=== PATIENT | female | born 1960 | race Caucasian/White ===

== ENCOUNTER → 2018-08-11 15:30 | Outpatient (CLI) | payer OTHER, SELFPAY ==
[2018-08-11 17:50] LABS: Absolute Lymphocyte Count 2.08 X10^3/ul (0.83-4.51); Absolute Neutrophil Count 3.6 X10^3/uL (2.0-7.7); Basophil# 0.01 X10^3/uL; Basophil% 0.2 % (0-1); Eosinophil# 0.12 X10^3/uL; Eosinophils% 1.9 % (0-5); Hematocrit 38.7 % (37-47); Hemoglobin 12.7 g/dl (12.0-15.0); Lymphocyte # 2.08 X10^3/ul (4.0); Mean Corp Hgb Conc 32.8 g/gl (32-36); Mean Corpuscular Hgb 28.9 pg (27.0-32.0); Mean Corpuscular Volume 88.2 fL (81-99); Mean Platelet Vol. 9.6 fl (6.2-12.0); Monocyte# 0.52 X10^3/uL; Monocyte% 8.3 % (0-10); Neutrophil # 3.57 X10^3/uL (2.7-7.7); Neutrophil % 56.6 % (47-70); Platelet Count 255 K/mm3 (150-450); RBC Distribution Width SD 41.3 fl (35.1-43.9); Red Blood Count 4.39 M/mm3 (4.2-5.4); White Blood Count 6.3 K/mm3 (4.4-11.0)
[2018-08-11 17:52] LABS: POSITIVE COUNT NO; POSITIVE DIFFERENTIAL NO; POSITIVE MORPHOLOGY NO
== END ==
PROVIDERS: Family Provider Family Medicine; PCP Family Medicine; Visit Provider Family Medicine
DX: R10.9 Unspecified abdominal pain (principal)
CPT/HCPCS: 36415; 85025

== ENCOUNTER → 2018-11-25 11:21 | Outpatient (CLI) | payer BC, SELFPAY ==
[2017-11-22 19:58] VITALS: BMI 22.0
--- NOTE | 2018-11-25 11:25 | RAD_ITS ---
STUDY: X-RAY - ABDOMEN/PELVIS REASON FOR EXAM: Female, 58 years old. Pain TECHNIQUE: 2 views COMPARISON: None. FINDINGS: Normal visualized lung bases. There is moderate stool in the colon. There is NO obstruction or fecal impaction. There is NO bowel wall thickening. There is no demonstrated free abdominal air. The visualized liver, spleen and kidneys are grossly normal in size and morphology. Normal soft tissue structures. Normal visualized osseous structures. RAD/Abdomen Single View IMPRESSION: There is NO acute intra-abdominal abnormality. NO stones are visible. Electronically Signed: Dany Meza MD at 6:41 EST , Service support ,
[2018-11-25 14:17] LABS: Anion Gap 6 (5-15); BUN 16 mg/dL (7-18); BUN/Creat Ratio 19.2 RATIO (10-20); Calcium,Total 8.8 mg/dL (8.5-10.1); Chloride 105 mmol/L (98-107); Creatinine, Serum 0.83 mg/dL (0.55-1.02); EST Glomerular Filtration Rate 75 mL/min (>60); Est Glom Filt Rate - Afr Amer 90 mL/min (>60); Glucose 96 mg/dL (74-106); Potassium 3.6 mmol/L (3.5-5.1); Sodium Level 141 mmol/L (136-145)
--- OUTSIDE RECORDS SUMMARY | 2019-01-30 02:54 | XMS RPT_ITS ---
:1960 Author Organization [facility] Care Team Providers Name Role Phone JPERICK CALLAHAN Norma Attending Unavailable SHANIKA MESSER Referring Unavailable Brent Campbell Attending Unavailable Brent Campbell Referring Unavailable Shanika Messer Primary Care Unavailable Shanika Messer Attending Unavailable Shanika Messer Primary Care Unavailable PROBLEMS PROBLEMS DATE TYPE CONDITION / CODE ATTENDING STATUS SOURCE 11/25/2018 Unknown N20.0 - CalcBrent Rand Active [facility] N20.0(ICD-10) Hospital Repository 11/25/2018 Unknown 592.0 - Calculus Brent Campbell Active [place] [facility] / Community 592.0(ICD-9) Hospital Repository PROCEDURES PROCEDURES No Procedure Records FoundRESULTS RESULTS BASIC METABOLIC Collected: 11/25/2018 Status: F Source: [place] PROFILE (BMP) 11:30 AM [facility] HOSPITAL REPOSITORY TYPE CODE TESTS RESULT OUT OF RANGE REFERENCE UNITS LAB L501.0100 74-106 mg/dL Normal GLU 96 Result Comment: Please note revised GLUCOSE reference range effective 2017. LAB L501.1000 7-18 mg/dL Normal BUN 16 LAB L501.1100 0.55-1.02 mg/dL Normal CREAT,SERUM 0.83 Result Comment: The validity of the calculated GFR AND GFRAA in patients over 70 years has not been determined. Clinical correlation is essential. LAB L501.1110 >60 mL/min Normal EST GFR 75 Result Comment: Non- GFR Calc LAB L501.1115 >60 mL/min Normal EST GFR - AA 90 Result Comment: GFR Calc LAB L501.1300 10-20 RATIO Normal BUN/CRE 19.2 LAB L501.2200 8.5-10.1 mg/dL CA Normal 8.8 LAB L501.5300 136-145 mmol/L NA Normal 141 LAB L501.5600 3.5-5.1 mmol/L K Normal 3.6 LAB L501.5900 98-107 mmol/L CL Normal 105 LAB L501.6100 21.0-32.0 mmol/L Normal CO2 30.0 LAB L501.6200 5-15 Normal GAP 6 Performed By: #### L500.2500 #### [facility] [address] [place], [address] ABDOMEN SINGLE VIEW Observed: 11/25/2018 Status: F Source: [place] 11:27 AM [facility] REPOSITORY [facility] Imaging Services [address] [place] [address] Abdomen Single View MR#: [id number] Acct: [id number] Name: MARITZA LANDON Rep #: [id number] : 1960 F 58 From: Dany Meza PCP: Shanika Messer MD Status: REG CLI Study: Abdomen Single View Date of Exam: 11/25/18 Exam# [id number] Ordering Dr: Brent Campbell MD STUDY: X-RAY - ABDOMEN/PELVIS REASON FOR EXAM: Female, 58 years old. Pain TECHNIQUE: 2 views COMPARISON: None. FINDINGS: Normal visualized lung bases. There is moderate stool in the colon. There is NO obstruction or fecal impaction. There is NO bowel wall thickening. There is no demonstrated free abdominal air. The visualized liver, spleen and kidneys are grossly normal in size and morphology. Normal soft tissue structures. Normal visualized osseous structures. RAD/Abdomen Single View IMPRESSION: There is NO acute intra-abdominal abnormality. NO stones are visible. 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 Observed: 11/25/2018 Status: F Source: [place] CULTURE, URINE 12:00 AM [facility] REPOSITORY Urine Culture ORGANISM 1: Klebsiella pneumoniae sp pneum [place] Count >100,000 Klebsiella pneumoniae sp pneum: REACTION Ampicillin $ >=32 R Ampicillin/Sulbactam $ 4 S Cefazolin $ <=4 S Cefepime $ <=0.12 S Ceftazidime *NF <=1 S Ceftriaxone $ <=0.25 S Ciprofloxacin $ <=0.25 S Ertapenim $$$ <=0.12 S ESBL NEG Gentamicin $ <=1 S Imipenem *NF <=0.25 S Levofloxacin $ <=0.12 S Nitrofurantoin $ 32 S Piperacillin/Tazobactam $$ 8 S Tobramycin $ <=1 S Trimethoprim/Sulfametho $ <=20 S (NF) indicates non-formulary drug at [facility]. Approval by Infectious Disease Specialist required before non-formulary drugs may be ordered and/or dispensed. Performed By: #### M100.0650 #### [facility] [place], [address] CBC W/DIFF, AUTOMATED Collected: 08/11/2018 Status: F Source: [place] 3:31 PM [facility] REPOSITORY TYPE CODE TESTS RESULT OUT OF RANGE REFERENCE UNITS LAB L100.1000 4.4-11.0 K/mm3 Normal WBC 6.3 LAB L100.1200 4.2-5.4 M/mm3 Normal RBC 4.39 LAB L100.1300 12.0-15.0 g/dl Normal HGB 12.7 LAB L100.1400 37-47 % Normal HCT 38.7 LAB L100.1500 81-99 fL Normal MCV 88.2 LAB L100.1600 27.0-32.0 pg Normal MCH 28.9 LAB L100.1700 32-36 g/gl Normal MCHC 32.8 LAB L100.1810 11.6-14.6 % Normal RDW CV 13.0 LAB L100.1820 35.1-43.9 fl Normal RDW SD 41.3 LAB L100.1900 150-450 K/mm3 Normal PLT 255 LAB L100.2000 6.2-12.0 fl Normal MPV 9.6 LAB L100.2100 47-70 % Normal NEUT% 56.6 LAB L100.2200 19-41 % Normal LY% 33.0 LAB L100.2300 0-10 % Normal MONO% 8.3 LAB L100.2400 0-5 % Normal EO% 1.9 LAB L100.2500 0-1 % Normal BASO% 0.2 LAB L100.2550 0.0-0.9 % Normal IM GRAN % 0.000 Result Comment: IG% - Immature Granulocytes (promyelocytes, myelocytes and metamyelocytes) > 1% indicates that a LEFT SHIFT is Present. LAB L100.2620 2.0-7.7 X10 3/uL Normal Absolute Neut 3.6 LAB L100.2720 0.83-4.51 X10 3/ul Normal Absolute Lymph 2.08 Performed By: #### L100.0100 #### [facility] [address] [place], [address] PROGRESS Observed: 01/05/2018 Status: COMPLETED Source: [place] 7:29 PM [facility] REPOSITORY HNO ID: [id number] Author: Erick Adrian Service: (none) Author Type: Physician Type: Progress Notes Filed: 01/05/2018 7:32 PM Note Text: FOLLOW UP VISIT - ENDOSCOPY NAME: Maritza Landaverde [facility] NO.: [id number] DATE OF SERVICE: 01/05/2018 : 1960 REFERRING PHYSICIAN: Shanika Messer MD Maritza is a patient I am following for anemia with a bleeding duodenal ulcer. Maritza was recently admitted to [facility] with severe iron deficiency anemia and suspected upper GI bleeding. I performed EGD on 11/13/17 with biopsy and control of bleeding ulcer with epinephrine. Pathology showed gastritis, negative for H. Pylori. The patient was discharged to home on 11/14/17 with stable hemoglobin, 8.5 at discharge, up from 5.9 on admisson. Follow-up hemoglobin on 11/17 was 11.0. The patient was advised to avoid NSAIDs and continue taking Protonix, which she has been doing as instructed, as well as to follow up with our office for repeat upper endoscopy in the next few weeks. The patient denies any abdominal pain, dark stools, nausea or vomiting. She states her appetite is good. She does note over the last few days however some new thoracic back discomfort. She presented to her PCP earlier this week , had labwork done including amylase, lipase, hepatic function panel, and CBC with diff. She had an x-ray of the abdomen and pelvis which showed a large amount of fecal material in the colon. Labs were significant for low hemoglobin and hematocrit of 9.8 and 30.7. I performed follow-up upper endoscopy on 2017. The patient was found to have no specific ulcerations, no signs of bleeding and mild duodenitis and gastritis but overall significantly improved. Pathology demonstrated: Mild chronic inactive gastritis, negative for H. pylori. The patient notes no complaints since the procedure. VITALS: There were no vitals taken for this visit. On examination, the abdomen is benign. Assessment IMPRESSION: Resolved duodenal ulcer, improving gastritis PLAN: If the patient notes any problems or changes in bowel function, the patient should contact me immediately. Otherwise I recommend follow up endoscopy as needed. I recommend she maintained on proton pump inhibitors for the next 3 months. She can then stop her medications. If the patient notes recurrence of symptoms, she restart her PPIs immediately. If the patient notes any issues of black tarry stools or signs of bleeding. She should follow-up with me immediately. Diagnoses: (K27.4) Bleeding ulcer (primary encounter diagnosis) Return to Clinic: The patient is instructed to follow- up with me as needed. Erick Adrian MD ALLERGIES ALLERGIES DATE TYPE / NAME / CODE REACTION SEVERITY SOURCE CODE 11/22/2017 Drug procaine Other Unknown [place] Allergy/41 HCl/[id number](RXN Community 2019381([facility]) Repository 11/22/2017 Drug Penicillins/W65368 Angioedema Unknown [place] Allergy/41 0476(RXNORM) Community 7380347([facility] OMED CT) Repository 11/22/2017 Drug aspirin/[id number] Vomiting Unknown [place] Allergy/41 (RXNORM) Community 2008410([facility] OMED CT) Repository 11/22/2017 Drug erythromycin Vomiting Unknown [place] Allergy/41 base/[id number](RX Community 6129083([facility] Hospital OMED CT) Repository 01/04/2014 Drug PENICILLINS RASH High [facility] Class/[address] [address](SNOM Repository ED CT) 01/04/2014 DRUG ASPIRIN Vomiting [place] [address] 2224217(SN Repository OMED CT) 01/04/2014 DRUG/99920 ERYTHROMYCIN Vomiting [facility] 1003(SNOME [address] D [address]) Repository 01/04/2014 DRUG PROCAINE OTHER: SEE C [address] [id number]( Repository OMED CT) ENCOUNTERS ENCOUNTERS ADMIT/DISCHARGE ACCOUNT ADMITTING ENCOUNTER LOCATION SOURCE NUMBER CLASS 11/25/2018 [id number] [facility] ing:MTRAD Repository 08/11/2018 [id number] [facility] ing:MFPLAB Repository 01/05/2018/01/09/20 [id number] Ambulatory [address] Repository PAYERS PAYERS ENCOUNTER GUARANTOR PAYER SUBSCRIBER SOURCE 11/25/2018 NICOLAS A Primary MARITZA A [place] [id number] Insurance:ANTHEMPolic BRUBAKERDOB: Community JOHANA y [place]: [id number] [id number] Repository [address]Krv: 330) Date:[phone] ([facility] [id number] [place] [address]II: 11/25/2018 Secondary NOT GIVENUNK [place] Insurance:SELF PAY [facility] Number: Effective Repository Date:2018-11-25 08/11/2018 NICOLAS A Primary MARITZA A [place] [id number] Insurance:ADMINISTRAT BRUBAKERDOB: [facility] JOHANA KING [facility] [id number]: Repository [address]Cgv: [phone] [phone] () Date: [facility] [address] [place], [place] [address]URSULA KEEN [address]KZ: 08/11/2018 Secondary NOT GIVENUNK [place] Insurance:SELF PAY [facility] Number: Effective Repository Date:2018-08-11
== END ==
PROVIDERS: Family Provider Family Medicine; PCP Family Medicine; Referring Provider Family Medicine; Visit Provider Family Medicine
DX: N20.0 Calculus of kidney (principal)
CPT/HCPCS: 36415; 74018; 80048; 87077; 87086; 87088; 87186

== ENCOUNTER → 2018-12-17 15:52 | Outpatient (CLI) | payer BC, SELFPAY ==
[2017-11-22 19:58] VITALS: BMI 22.0
== END ==
PROVIDERS: Family Provider Family Medicine; PCP Family Medicine; Referring Provider Family Medicine; Visit Provider Family Medicine
DX: N39.0 Urinary tract infection, site not specified (principal)
CPT/HCPCS: 87086

== ENCOUNTER → 2019-01-06 07:21 | Outpatient (CLI) | payer BC, SELFPAY ==
--- NOTE | 2019-01-06 07:31 | CT_ITS ---
STUDY: CT ABDOMEN AND PELVIS WITHOUT CONTRAST REASON FOR EXAM: Female, 58 years old. Right flank pain. RADIATION DOSAGE (If Supplied By Facility): CTDIvol = ( 8.25 ) mGy, DLP = ( 412.15 ) mGycm TECHNIQUE: Transaxial images were obtained from the dome of the diaphragm to the symphysis pubis without oral contrast, and without intravenous contrast. Sagittal and coronal images were reconstructed. Individualized dose optimization techniques were used for this CT. COMPARISON: None. FINDINGS: Patchy areas of scarring or subsegmental atelectasis in the left lung base. The visualized portions of the heart are within normal limits. Normal liver. Normal gallbladder and extrahepatic biliary system. Normal spleen. Normal pancreas. Normal bilateral adrenal glands. Normal right kidney. Normal left kidney. No definite renal or ureteral stones are seen. There is no hydronephrosis on either side. Evaluation of the GI tract is limited by absence of oral contrast. Cannot exclude stomach wall thickening. No dilated loops of bowel or evidence for obstruction. Cannot exclude segmental thickening of the lobato of the small or large bowel. Cannot exclude enteritis or colitis. Moderate to marked diffuse fecal retention. Appendix within normal limits. Normal abdominal aorta. Normal inferior vena cava. Normal retroperitoneum. Normal urinary bladder. Normal visualized uterus. Normal abdominal wall. There are diffuse degenerative changes of the visualized lumbar spine. Mild levoconvex scoliosis. CT/Abdomen/Pelvis without Cont IMPRESSION: No definite acute abnormality. [place]-xo-pfcxaq diffuse fecal retention. Electronically Signed: Kamran So MD at 16:52 EST , Service support ,
== END ==
PROVIDERS: Family Provider Family Medicine; PCP Family Medicine; Referring Provider Urology; Visit Provider Urology
DX: N20.0 Calculus of kidney (principal); R10.9 Unspecified abdominal pain
CPT/HCPCS: 74176

== ENCOUNTER → 2020-09-06 17:08 | Outpatient (CLI) | payer BC, SELFPAY ==
[2017-11-22 19:58] VITALS: BMI 22.0
== END ==
PROVIDERS: PCP Family Medicine; Referring Provider Family Medicine; Visit Provider Family Medicine
DX: B34.9 Viral infection, unspecified (principal)
CPT/HCPCS: 87635; U0003

== ENCOUNTER → 2021-05-16 10:39 | Outpatient (CLI) | payer OTHER, SELFPAY ==
--- NOTE | 2021-05-16 10:42 | CT_ITS ---
STUDY: CT ABDOMEN AND PELVIS WITHOUT CONTRAST REASON FOR EXAM: Female, 61 years old. Right flank pain. Hematuria. History of kidney stones. RADIATION DOSAGE (If Supplied By Facility): CTDIvol = ( 6.26 ) mGy, DLP = ( 303.50 ) mGycm TECHNIQUE: Transaxial images were obtained from the dome of the diaphragm to the symphysis pubis without oral contrast, and without intravenous contrast. Sagittal and coronal images were reconstructed. Individualized dose optimization techniques were used for this CT. COMPARISON: None. FINDINGS: Stable mild increased linear markings at the lung bases suggests above the linear scarring. The visualized portions of the heart are within normal limits. Normal liver. Normal gallbladder and extrahepatic biliary system. Normal spleen. Normal pancreas. Normal bilateral adrenal glands. Normal right kidney. Normal left kidney. There is a small hiatal hernia. Normal small intestine. Normal colon. The appendix is visualized and appears normal. There is scattered atherosclerotic calcification of the abdominal aorta, without a demonstrated aneurysm. Normal inferior vena cava. There is borderline retroperitoneal lymphadenopathy with enlarged nodes no greater than 10mm in the short axis diameter. Normal urinary bladder. There is a small umbilical hernia containing fat. There are mild degenerative changes of the visualized lumbar spine. Straightening of the normal lumbar lordosis. Levoscoliosis. CT/Abdomen/Pelvis without Cont IMPRESSION: Stable examination. Electronically Signed: Aurelio Mercedes MD at 11:04 EDT , Service support ,
== END ==
PROVIDERS: PCP Family Medicine; Referring Provider Family Medicine; Visit Provider Family Medicine
DX: R31.29 Other microscopic hematuria (principal); R10.9 Unspecified abdominal pain; Z87.442 Personal history of urinary calculi
CPT/HCPCS: 74176

== ENCOUNTER → 2021-07-25 14:58 | Outpatient (CLI) | payer OTHER, SELFPAY | PROVIDERS: PCP Family Medicine; Referring Provider Family Medicine; Visit Provider Family Medicine | DX: B34.9 Viral infection, unspecified (principal) | CPT/HCPCS: 87635; U0005; U0003 ==

== ENCOUNTER 2021-11-12 16:33 | Outpatient (CLI) | payer OTHER, SELFPAY ==
[2021-11-12 18:03] LABS: Absolute Lymphocyte Count 2.07 X10^3/uL (0.83-4.51); Absolute Neutrophil Count 4.1 X10^3/uL (2.0-7.7); Basophil# 0.03 X10^3/uL; Basophil% 0.4 % (0-1); Eosinophil# 0.13 X10^3/uL; Eosinophils% 1.9 % (0-5); Hematocrit 37.2 % (37-47); Hemoglobin 12.3 g/dL (12.0-15.0); Lymphocyte # 2.07 X10^3/ul (0.83-4.51); Lymphocyte % 29.8 % (19-41); Mean Corp Hgb Conc 33.1 g/dL (32-36); Mean Corpuscular Hgb 29.1 pg (27.0-32.0); Mean Corpuscular Volume 87.9 fL (81-99); Mean Platelet Vol. 9.3 fl (6.2-12.0); Monocyte# 0.55 X10^3/uL; Monocyte% 7.9 % (0-10); NRBC Flagged by Analyzer 0 % (0-5); Neutrophil # 4.14 X10^3/uL (2.7-7.7); Neutrophil % 59.7 % (47-70); Platelet Count 260 K/mm3 (150-450); RBC Distribution Width CV 12.8 % (11.6-14.6); Red Blood Count 4.23 M/mm3 (4.2-5.4); White Blood Count 6.9 K/mm3 (4.4-11.0)
[2021-11-12 18:49] LABS: ALB/GLOB Ratio 1.1 RATIO (0.9-2.4); AST(SGOT) 17 U/L (15-37); Alanine Aminotransfer ALT/SGPT 39 U/L (13-56); Albumin, Serum 3.9 g/dL (3.2-5.0); Alkaline Phosphatase 69 U/L (45-117); Anion Gap 8 (5-15); BUN 25 mg/dL (7-18); BUN/Creat Ratio 29.2 RATIO (10-20); Calcium,Total 9.2 mg/dL (8.5-10.1); Chloride 103 mmol/L (98-107); Creatinine, Serum 0.86 mg/dL (0.55-1.02); EST Glomerular Filtration Rate 72 mL/min (>60); Est Glom Filt Rate - Afr Amer 87 mL/min (>60); Globulin 3.6 g/dL (2.2-4.2); Glucose 111 mg/dL (74-106); Protein, Total 7.5 g/dL (6.4-8.2); Sodium Level 140 mmol/L (136-145); Thyroid Stim Hormone (TSH) 0.57 uIU/mL (0.358-3.74)
== END 2021-11-12 23:59 | disposition short-term general hospital (02) ==
LOC: MFPLAB 16:37
PROVIDERS: PCP Family Medicine; Referring Provider Family Medicine; Visit Provider Family Medicine
DX: R00.0 Tachycardia, unspecified (principal)
CPT/HCPCS: 36415; 80053; 84443; 85025

== ENCOUNTER → 2022-04-08 | Outpatient (CLI) | payer OTHER, SELFPAY ==
[2022-04-15 11:09] LABS: Age Gdln ACOG Testing 30-65 (.)
[2022-04-15 16:32] LABS: HPV APTIMA, High Risk Negative (Negative); HPV Reflexed? YES, CHARGE PATIENT
== END | disposition home or self-care (01) ==
LOC: OPBI 15:29
PROVIDERS: PCP Family Medicine; Visit Provider Family Medicine
DX: Z12.4 Encounter for screening for malignant neoplasm of cervix (principal)
CPT/HCPCS: 87624; 88175; G0145

== ENCOUNTER → 2022-05-01 | Outpatient (CLI) | payer OTHER, SELFPAY ==
--- NOTE | 2022-05-01 10:00 | BI_ITS ---
MAMMOGRAPHY - BILATERAL SCREENING REASON FOR EXAM: Female, 62 years old. Routine annual screening examination. PERTINENT HISTORY: Grandmother with breast cancer. Aunt with breast cancer. Remote history of right stereotactic biopsy. TECHNIQUE: Digital bilateral breast pinky (3D mammographic acquisition) in the CC and MLO projections. 2-D mediolateral oblique (MLO) and craniocaudad (CC) views of both breasts were obtained. CAD: Full Field Digital Mammography with Computer Added Detection was performed. COMPARISON: Comparison mammogram from 01/01/2006. FINDINGS: Breast Composition: The breasts are extremely dense, which lowers the sensitivity of mammography. There are no dominant masses or suspicious calcifications. Biopsy marker in the right breast. No other significant abnormalities are identified. There has been no significant change since the prior study. BI/SCRN MAMM (CAD)W/PINKY BILAT IMPRESSION: Stable bilateral screening mammogram. Yearly follow-up mammogram recommended. (A) ASSESSMENT CATEGORY: BIRADS Category 2: Benign. A letter regarding these results will be sent to the patient by the facility within 30 days. Approximately 10% of breast cancers are not detected by mammography. A normal mammogram should not delay biopsy of a clinically suspicious abnormality. [id number] Electronically Signed: Cody Mendez, at 16:29 EDT ,
== END | disposition home or self-care (01) ==
LOC: OPBI 09:57
PROVIDERS: PCP Family Medicine; Visit Provider Family Medicine
DX: Z12.31 Encounter for screening mammogram for malignant neoplasm of breast (principal); Z80.3 Family history of malignant neoplasm of breast
CPT/HCPCS: 77063; 77067

== ENCOUNTER → 2022-05-06 | Outpatient (CLI) | payer SELFPAY, OTHER ==
--- NOTE | 2022-05-06 13:45 | ECHOD_ITS ---
Reason For Study: Murmur Procedure This was a 2D Doppler, Color Flow transthoracic echocardiogram. The exam was of adequate technical quality. Exam performed in department. Left Ventricle Mildly dilated left ventricle. Left ventricular systolic function is normal. The estimated ejection fraction is 65 %. No regional wall motion abnormalities noted. Right Ventricle Normal RV size. Normal systolic function. Atria The left atrium is moderately enlarged. Normal right atrium. Prominent eustachian valve. Aneurysmal atrial septum. No doppler evidence for ASD. Bubble contrast study negative for right to left interatrial shunt. Mitral Valve There is no mitral annular calcification. Bileaflet diffuse mitral valve thickening. Myxomatous mitral valve. Severe mitral valve prolapse, posterior leaflet. Moderately severe (3+) eccentric mitral valve insufficiency. Tricuspid Valve Normal tricuspid valve. Mild tricuspid valve insufficiency. Right ventricular systolic pressure estimated to be 39 mmHg. Aortic Valve Trisinus/trileaflet aortic valve. Mild diffuse aortic valve thickening. Mild focal aortic valve calcification. Pulmonic Valve The pulmonic valve is not well visualized. Mild (1+) eccentric pulmonic valve insufficiency. Great Vessels Normal sized aortic root. Pericardium/Pleural No pericardial effusion. Medication 20 gauge I.V. with prn adaptor inserted into right arm. Performed a rapid injection of agitated mix of 9 cc saline and 1cc air to assess for atrial septal defect. MMode/2D Measurements & Calculations LVIDd: 5.7 cm IVSd: 1.0 cm Ao root diam: 3.0 cm LVIDs: 3.3 cm LVPWd: 1.1 cm LA dimension: 4.4 cm RVDd: 2.8 cm FS: 41.6 % LAV(MOD-bp): 88.6 ml LA A4 area: 25.0 cm2 RA A4 area: 10.1 cm2 LAV(MOD-bp) Indexed: 72.3 ml/m2 LAV(MOD-sp2): 90.0 ml LAV(MOD-sp4): 83.6 ml Time Measurements MV dec time: 0.18 sec Doppler Measurements & Calculations MV E max jerzy: 139.5 cm/sec Lat Peak E' Jerzy: 11.9 cm/sec Med Peak E' Jerzy: 6.4 cm/sec MV A max jerzy: 78.6 cm/sec E/E' lat: 11.7 E/E' med: 21.8 MV E/A: 1.8 MV V2 max: 168.9 cm/sec MV P1/2t max jerzy: 170.2 cm/sec Ao V2 max: 130.5 cm/sec MV max P.4 mmHg MV P1/2t: 80.9 msec Ao max P.8 mmHg MV V2 mean: 91.5 cm/sec MV dec slope: 616.4 cm/sec2 MV mean P.0 mmHg MV V2 VTI: 38.5 cm MVA(P1/2t): 2.7 cm2 LV V1 max: 105.3 cm/sec MR max jerzy: 503.8 cm/sec PA V2 max: 92.0 cm/sec LV V1 max P.4 mmHg MR max P.5 mmHg MR mean jerzy: 383.6 cm/sec MR mean P.8 mmHg MR VTI: 159.9 cm TR max jerzy: 300.7 cm/sec TR max P.2 mmHg ECHO/Echo Complete Interpretation Summary Mildly dilated left ventricle. Left ventricular systolic function is normal. The estimated ejection fraction is 65 %. The left atrium is moderately enlarged. Prominent eustachian valve. Aneurysmal atrial septum. Myxomatous mitral valve. Severe mitral valve prolapse, posterior leaflet Bileaflet diffuse mitral valve thickening. Moderately severe (3+) eccentric mitral valve insufficiency. Mild tricuspid valve insufficiency. Mild diffuse aortic valve thickening. Mild focal aortic valve calcification. Mild (1+) eccentric pulmonic valve insufficiency. Right ventricular systolic pressure estimated to be 39 mmHg. Transmitral diastolic flow velocities suggest diastolic dysfunction (pseudonorm al pattern). Bubble contrast study negative for right to left interatrial shunt. Ordering Physician: Shanika Messer Referring Physician: Shanika Messer Performed By: Shahab Akins RCS
== END | disposition home or self-care (01) ==
PROVIDERS: PCP Family Medicine; Referring Provider Family Medicine; Visit Provider Family Medicine
DX: R01.1 Cardiac murmur, unspecified (principal)
CPT/HCPCS: 93306; A4216

== ENCOUNTER 2022-05-11 01:29 | Emergency (ER) | payer OTHER, SELFPAY ==
[2022-05-11 01:31] VITALS: BP 154/86; PULSE 92; RESP 18; TEMP 36.9; O2SAT 97; BMI 24.3
[2022-05-11 01:36] VITALS: O2SAT 96
--- NOTE | 2022-05-11 02:01 | EKG12_ITS ---
Test Reason : CP Blood Pressure : / mmHG Vent. Rate : 093 BPM Atrial Rate : 093 BPM P-R Int : 178 ms QRS Dur : 086 ms QT Int : 378 ms P-R-T Axes : 069 009 068 degrees QTc Int : 469 ms Normal sinus rhythm Normal ECG Confirmed by SLIM MUNOZ, CHIVO ([id number]), editorial specialist CHALO AGUILAR ([id number]) on 05/13/2022 10:00:15 AM Referred By: BB Confirmed By:CHIVO SMALLS MD
--- NOTE | 2022-05-11 02:01 | RAD_ITS ---
STUDY: X-RAY CHEST REASON FOR EXAM: Female, 62 years old. chest pain TECHNIQUE: AP portable. 2:04 AM. COMPARISON: 11/12/2017. FINDINGS: LUNGS: No consolidation. No pneumothorax. MEDIASTINUM: Unremarkable. CARDIAC SILHOUETTE: Not enlarged. BONES AND SOFT TISSUES: No acute abnormalities. RAD/Chest 1 View (Portable) IMPRESSION: No evidence of active intrathoracic disease. Electronically Signed: Gisele Eli MD at 2:30 EDT ,
[2022-05-11 02:09] LABS: Absolute Lymphocyte Count 2.69 X10^3/uL (0.83-4.51); Absolute Neutrophil Count 3.5 X10^3/uL (2.0-7.7); Basophil# 0.03 X10^3/uL; Basophil% 0.4 % (0-1); Eosinophils% 2.8 % (0-5); Hematocrit 38.2 % (37-47); Hemoglobin 12.6 g/dL (12.0-15.0); Lymphocyte # 2.69 X10^3/ul (0.83-4.51); Lymphocyte % 38.2 % (19-41); Mean Corpuscular Hgb 29.2 pg (27.0-32.0); Mean Corpuscular Volume 88.4 fL (81-99); Mean Platelet Vol. 9.5 fl (6.2-12.0); Monocyte# 0.65 X10^3/uL; Monocyte% 9.2 % (0-10); NRBC Flagged by Analyzer 0 % (0-5); Neutrophil # 3.46 X10^3/uL (2.7-7.7); Neutrophil % 49.1 % (47-70); Platelet Count 263 K/mm3 (150-450); RBC Distribution Width CV 12.7 % (11.6-14.6); RBC Distribution Width SD 41.1 fl (35.1-43.9); Red Blood Count 4.32 M/mm3 (4.2-5.4); White Blood Count 7.1 K/mm3 (4.4-11.0)
--- NOTE | 2022-05-11 02:23 | ED.VIS.CHEST ---
HPI History of Present Illness Chief Complaint: Shortness of Breath Informant: patient Onset/Context/Timing Onset: Hours (5) Activity at onset: sudden, onset and activity on onset (laid down supine to bed) Timing: Continuous and Waxes and wanes Quality: Positive for Aching Location: - (mid-upper back around left side/chest to sternum) Current Severity: Mild Maximum Severity: Severe Worsened By: - (lying supine) Relieved By: - (sitting up) Associated Symptoms: Negative for Nausea, Vomiting, Diaphoresis, Dyspnea, Fever, Lightheadedness or Palpitations Narrative Narrative: Patient had sudden onset of pain when she lied down to bed tonight. She got up and took her stomach medications which she describes as pantoprazole and a dose of Maalox, she felt better lay down again and the pain came back and she had a hard time sleeping and was concerned. She recently had some swelling in her legs and went to her doctor, was diagnosed with a new heart murmur and then was sent for an echocardiogram which shows posterior leaflet mitral prolapse with moderate-severe mitral insufficiency. She denies any dyspnea or orthopnea. The swelling in her legs is gone. No recent coughing or fevers, she was feeling well before she went to bed. Never had a stress test. [facility] Medical History Asthma Heart murmur Home Medications albuterol sulfate 90 mcg/actuation aerosol inhaler (Ventolin HFA) 2 puff inhalation Q4H PRN PRN Sob &/Or Wheezing 02/05/16 [History Last Taken 11/11/17] iron, carbonyl 45 mg tablet (Feosol) 45 mg PO QMONTH supplement 02/05/16 [History Last Taken 11/11/17] ondansetron HCl 8 mg tablet 8 mg PO Q8H PRN PRN Nausea ##20 02/06/16 [Rx Last Taken Unknown] Bita Allergy 1 tab PO QHS allergies 11/12/17 [History Last Taken 11/11/17] nitrofurantoin monohydrate/macrocrystals 100 mg capsule 100 mg PO BID #10 caps 11/14/17 [Rx Last Taken Unknown] pantoprazole 40 mg tablet,delayed release 40 mg PO BID #60 tabs 11/14/17 [Rx Last Taken Unknown] phenazopyridine 100 mg tablet 100 mg PO TID #6 tabs 11/14/17 [Rx Last Taken Unknown] Allergy/AdvReac Type Severity Reaction Status Date / Time aspirin Allergy Vomiting Verified 11/22/17 20:00 erythromycin base Allergy Vomiting Verified 11/22/17 20:00 [Erythromycin Base] Penicillins Allergy Angioedema Verified 11/22/17 20:00 procaine HCl [From Novocain] Allergy Other Verified 11/22/17 20:00 Social History Smoking Status: Never smoker ROS ROS ED Constitutional Constitutional ED: Denies chills or fever(s) Eyes Eyes: Denies change in vision or diplopia ENT ENT ED: Denies rhinorrhea or sore throat Cardiovascular Cardiovascular: Reports as per HPI and chest pain; Denies palpitations Respiratory/Chest Respiratory/Chest: Denies cough or dyspnea Gastrointestinal Gastrointestinal: Denies abdominal pain, diarrhea, nausea or vomiting Genitourinary Genitourinary ED: Denies dysuria or hematuria Musculoskeletal Musculoskeletal: Denies back pain or neck pain Integumentary Denies abscess or rash Neurologic Neurologic: Denies headache(s), paresthesias or weakness Psychiatric Psychiatric: Denies anxiety or suicidal thoughts EXAM Physical Exam Const Vital Signs: 05/11/22 01:31 05/11/22 01:36 Temperature 98.5 F Temperature Source Temporal Pulse Rate 92 Respiratory Rate 18 Respiratory Effort Short of Breath Respiratory Depth Normal Respiratory Pattern Normal Blood Pressure 154/86 H Blood Pressure Mean 108 Pulse Ox 97 Oxygen Delivery Method Room Air Room Air Positive well nourished and well developed General Appearance ED: well developed and NAD HEENT Reports moist mucous membranes normocephalic and atraumatic Eyes PERRL and EOMs intact bilaterally Neck full ROM and supple Resp normal respiratory effort and clear to auscultation bilaterally Cardio regular rate, regular rhythm and no murmurs GI non-tender and non-distended Auscultation: normoactive bowel sounds Palpation: soft Back/Spine no CVA tenderness General Back: other FROM Extremity normal to inspection General Extremety ED: Negative for edema, pulses abnormal or tenderness General Extremity: Negative for edema or pulses abnormal Neuro oriented x3, CN's II-XII intact bilaterally and no sensory deficits noted Sensorium / Orientation: awake and alert Motor Exam: strength 5/5 throughout Skin no rashes or lesions noted and no wounds Heart Score History: Slightly/Non-Suspicious ECG: Normal Age: >45 - <65 years Risk Factors: No Risk Factors Troponin: </= Normal Limit Score: 1 MDM MDM MDM Narrative Medical decision making narrative: Work-up is normal. She has had discomfort for 5+ hours with a negative troponin and normal EKG, I do not think she needs another measurement tonight to rule out acute coronary syndrome. She is still having discomfort on reevaluation so we gave her GI cocktail prior to discharge, advised to follow-up. She is comfortable with that plan. Lab Data Attestation: I reviewed the patient's lab results. Labs: Laboratory Results - last 24 hr 05/11/22 05/11/22 01:45 01:45 WBC 7.1 RBC 4.32 Hgb 12.6 Hct 38.2 MCV 88.4 MCH 29.2 MCHC 33.0 RDW Std Deviation 41.1 RDW Coeff of Levar 12.7 Plt Count 263 MPV 9.5 Immature Gran % (Auto) 0.300 Neut % (Auto) 49.1 Lymph % (Auto) 38.2 [place] % (Auto) 9.2 Eos % (Auto) 2.8 Baso % (Auto) 0.4 Absolute Neuts (auto) 3.5 Absolute Lymphs (auto) 2.69 Nucleated RBC % 0 Sodium 141 Potassium 3.6 Chloride 104 Carbon Dioxide 31.0 Anion Gap 6 BUN 17 Creatinine 0.91 Estim Creat Clear Calc 64.66 Est GFR (MDRD) Af Amer 81 Est GFR (MDRD) Non-Af 67 BUN/Creatinine Ratio 18.7 Glucose 132 H Calcium 9.1 Troponin I High Sens 6 Radiography Chest X-Ray - ED: 1 View, Read by ED Physician, No Acute Disease and No Infiltrates Diagnostic Testing: Clinical Impression(s) from Imaging Studies Chest X-Ray 05/11/22 02:01 IMPRESSION: No evidence of active intrathoracic disease. Electronically Signed: Gisele Eli MD at 2:30 EDT , Rhythm Strip Rhythm Strip: Sinus Rhythm Rate: 90 Ectopy: None EKG Initial EKG: Attestation: I personally reviewed and interpreted this EKG as follows: Interpretation: Sinus Rhythm and No Acute Injury Pattern Comments: normal EKG Discharge Plan Triage Chief Complaint: Shortness of Breath ED Provider: Jayjay Burciaga Dx/Rx/DC Orders Clinical Impression: Left-sided chest pain Instructions: ED Chest Pain, Noncardiac Prescriptions: No Action albuterol sulfate [Ventolin HFA] 18 GM Hfa.Aer.Ad 2 puff inhalation Q4H PRN PRN (Reason: Sob &/Or Wheezing) Label Comments: INHALE 2 (TWO) PUFFS EVERY 4 HOURS NEEDED iron, carbonyl [Feosol] 45 MG capsule 45 mg PO QMONTH ondansetron HCl 8 MG tablet 8 mg PO Q8H PRN PRN (Reason: Nausea) Qty: 20 0RF Bita Allergy 1 tab PO QHS pantoprazole 40 MG tablet 40 mg PO BID Qty: 60 0RF nitrofurantoin monohyd/m-cryst 100 MG capsule 100 mg PO BID Qty: 10 0RF phenazopyridine 100 MG tablet 100 mg PO TID Qty: 6 0RF Primary Care Provider: Shanika Messer Referrals: Shanika Messer MD [Primary Care Provider] - 1-2 Days if not improving ((or as soon as able)) Disposition Disposition: Home, Self Care
[2022-05-11 02:35] LABS: Anion Gap 6 (5-15); BUN 17 mg/dL (7-18); BUN/Creat Ratio 18.7 RATIO (10-20); Calcium,Total 9.1 mg/dL (8.5-10.1); Chloride 104 mmol/L (98-107); Creatinine, Serum 0.91 mg/dL (0.55-1.02); EST Glomerular Filtration Rate 67 mL/min (>60); Est Glom Filt Rate - Afr Amer 81 mL/min (>60); Estimated Creatinine Clearance 64.66 ml/min; Glucose 132 mg/dL (74-106); Potassium 3.6 mmol/L (3.5-5.1); Sodium Level 141 mmol/L (136-145); Troponin-I HS (w/2H Reflex) 6 pg/mL (3.0-54.0)
[2022-05-11 03:39] VITALS: BP 128/69; PULSE 84; RESP 16; O2SAT 98
[2022-05-11 03:45] VITALS: O2SAT 98
[2022-05-11 04:08] LABS: Reflex Troponin-HS? (from REC) Y
== END 2022-05-11 03:45 | disposition home or self-care (01) ==
PROVIDERS: Emergency Provider Emergency Medicine; PCP Family Medicine; Visit Provider Emergency Medicine
DX: R07.9 Chest pain, unspecified (principal); I34.0 Nonrheumatic mitral (valve) insufficiency; R01.1 Cardiac murmur, unspecified; I34.1 Nonrheumatic mitral (valve) prolapse; R06.02 Shortness of breath; R00.2 Palpitations; J45.909 Unspecified asthma, uncomplicated
CPT/HCPCS: 71045; 80048; 84484; 85025; 93005; 99285; A4216

== ENCOUNTER → 2022-09-02 | Outpatient (CLI) | payer OTHER, SELFPAY ==
--- NOTE | 2022-09-01 16:55 | HP.PCM_ITS ---
History and Physical Date of Admission: 09/02/22 [facility] [address] [place] [address] MR#: [id number] Acct: [id number] Name:ANISH KAY Rep #: [id number] : [id number] Provider: Dr. Clifton Meza MD Age/Sex:? 62/F ?Location: [facility] Status: Signed HPI HPI History of Present Illness Surgical H&P: Yes Details: This is a 62-year-old white female who is referred for evaluation of shortness of breath/dyspnea, lower extremity edema, and findings of mitral valve prolapse with mitral valve regurgitation.? She states to the best of her knowledge she had done well until earlier this year.? She states she started to notice concerns of shortness of breath and dyspnea which she thought was out of proportion to her underlying asthma.? She also noted edema from her lower thigh s/upper legs going down to her ankle and pedal areas.? She was evaluated by her primary care physician.? She states at that time there was concerns of a cardiac murmur.? Thus she proceeded to medical therapy and an outpatient transthoracic echocardiogram. From a medical standpoint she was placed on diuretic therapy with furosemide.? She states since initiating diuretic therapy and wearing support stockings when she is standing she has had no recurrence of her lower extremity edema.? However, she still has concerns of her shortness of breath and dyspnea. She underwent evaluation with a transthoracic echocardiogram.? This was performed on 05-06-2022.? The results are noted below. She denies chest discomfort suspicious for angina pectoris.? She has not had any acute orthopnea or PND.? There is been no near-syncope or syncope. She had an ECG in the office today.? She is noted to be in sinus rhythm with poor R wave progression. Intake Vital Signs D ? 05/15/2116:31 05/11/2201:31 08/14/2210:35 08/14/2210:38 Height 5 ft 8.5 in 5 ft 8 in 5 ft 8 in 5 ft 8 in Weight: ? 159 lb 9.835 oz ? 159 lb 2 oz BMI ? 24.3 ? 24.2 BP ? 154/86 H ? 132/68 H Blood Pressure Location ? ? ? Lt brachial Position ? ? ? Sitting Respiration ? 18 ? 16 Pulse ? 92 ? 96 Pulse Source ? ? ? Auscultation Temp ? 98.5 F ? ? Pulse Oximetry (%) ? 97 ? ? Intake Visit Reasons:?MURMUR/REF. LUHLLIFF Ob/Gyn Physician Required: No Accompanied by: Self Allergies aspirin Allergy (Verified 08/14/22 10:38) Vomitingerythromycin base [Erythromycin Base] Allergy (Verified 08/14/22 10:38) VomitingPenicillins Allergy (Verified 08/14/22 10:38) Angioedemaprocaine HCl [From Novocain] Allergy (Verified 08/14/22 10:38) Otheribuprofen Adverse Reaction (Unknown, Verified 08/14/22 10:38) Vomiting Medications albuterol sulfate 90 mcg/actuation aerosol inhaler (Ventolin HFA) 2 puff inhalation Q4H PRN PRN Sob &/Or Wheezing 02/05/16 [History Confirmed 08/14/22] iron, carbonyl 45 mg tablet (Feosol) 45 mg PO QMONTH supplement 02/05/16 [History Confirmed 08/14/22] pantoprazole 40 mg tablet,delayed release 40 mg PO BID #60 tabs 11/14/17 [Rx Confirmed 08/14/22] fluticasone propionate 50 mcg/actuation nasal spray,suspension (Flonase Allergy Relief) 1 spray intranasal DAILY PRN allergy symptoms 08/12/22 [History Confirmed 08/14/22] bisacodyl 5 mg tablet,delayed release (Gentle Laxative (bisacodyl)) 5 mg PO ONCE PRN 08/14/22 [History Confirmed 08/14/22] furosemide 20 mg tablet 20 mg PO DAILY 08/14/22 [History Confirmed 08/14/22] PFSH Medical History? Anemia Asthma Constipation Heart murmur Non-rheumatic mitral regurgitation Nonrheumatic mitral (valve) prolapse Seasonal allergies Surgical History? History of right oophorectomy Family History? Grandmother Arrhythmia Presence of permanent cardiac pacemaker Social History? Smoking Status:? Never smoker alcohol intake:? never substance use type:? does not use caffeine:? Yes (occasional) ROS Const Const: Negative for fatigue, weakness, body ache, fever(s), headache(s), chills, frequent falls, night sweats, daytime sleepiness, difficulty sleeping, excessive sweating, weight gain, weight loss, increased appetite, poor appetite, anorexia or other Eyes Eyes: Negative for blurry vision or double vision ENT ENT: Negative for headache(s), dizziness or balance problems Cardio Palpitations: Yes (occasional) feels like its: irregular Edema: Bilateral (LE controlled w/ medication Lt>Rt; wears compression socks) Muscle aches with walking: None Resp Respiratory: Positive for SOB with activity (occasional other than asthma, bending over); Negative for SOB at rest, SOB orthopnea\SOB lying down, Cough, Coughing up blood/hemoptysis, chest congestion, pain on inspiration, snoring, stridor, wheezing, crackles, paroxysmal nocturnal dyspnea or other Musc Musc: Positive for joint pain (bilat knees); Negative for muscle aches/ myalgia, muscle weakness or balance problems Neuro Neuro: Negative for dizziness, lightheadedness, near syncope, syncope, orthostatic symptoms, frequent falls, headache(s), weakness, confusion, memory loss, restless legs, blurry vision, double vision, vertigo, seizures, lack of coordination or other Endo Endo: Negative for fatigue or excessive sweating Cardiology Exam Const Appearance: cooperative, healthy appearing, comfortable, no acute distress and well developed Nutritional Appearance: average body habitus Orientation: alert, awake and oriented x3 Head Head: normal to inspection, normocephalic and atraumatic Ears: hearing grossly normal bilaterally Nose: external nose normal Face and Sinus: face symmetric Eyes Eyelids: eyelids normal Conjunctivae: conjunctivae normal Pupils: PERRL EOM: EOM intact bilaterally Neck Neck: normal visual inspection Carotids: normal carotid upstroke Chest Chest inspection: normal inspection of the chest, symmetric chest movement and normal respiratory effort Auscultation: Bilateral: Clear to Auscultation Cardio Palpation: normal PMI Rate: regular rate Rhythm: regular rhythm Heart sounds: S1 normal and S2 normal Murmur: Grade 4/6, loud, harsh, holosystolic, LLSB, apex, axilla, LVOT, sternal notch and radiates to carotids and left posterior thorax GI GI: normal to inspection, soft and bowel sounds present Neuro General: patient alert, patient awake, patient oriented x3, gait normal and moves all extremities Skin Skin: no rashes or lesions noted Extremities Pulses: Normal: Right Radial Pulse and Left Radial Pulse Lower Extremity Edema: None: Bilateral Psych Psychological: normal affect Supplemental Info Supplemental Information Echocardiogram: 05-06-2022 Interpretation Summary Mildly dilated left ventricle. Left ventricular systolic function is normal. The estimated ejection fraction is 65 %. The left atrium is moderately enlarged. Prominent eustachian valve. Aneurysmal atrial septum. Myxomatous mitral valve. Severe mitral valve prolapse, posterior leaflet Bileaflet diffuse mitral valve thickening. Moderately severe (3+) eccentric mitral valve insufficiency. Mild tricuspid valve insufficiency. Mild diffuse aortic valve thickening. Mild focal aortic valve calcification. Mild (1+) eccentric pulmonic valve insufficiency. Right ventricular systolic pressure estimated to be 39 mmHg. Transmitral diastolic flow velocities suggest diastolic dysfunction (pseudonormal pattern). Bubble contrast study negative for right to left interatrial shunt. Labs: ?? ? No Data to Display Diagnostics: ?? ? Electrocardiogram ? Echocardiogram ? Chest X-Ray ? Pulmonary: ?? ? 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 This could be the etiology for her MR and her subsequent symptoms with respect to her shortness of breath/dyspnea as well as concerns contributing to her lower extremity peripheral pitting edema. From a cardiac standpoint she does appear to be improved on her diuretic therapy.? This will be continued. She will be asked to have further evaluation of her mitral valve disease process with a transesophageal echocardiogram. However, it was felt prudent that she be further evaluated with a diagnostic cardiac catheterization.? This would be in preparation for a CT surgery consultation for mitral valve repair/replacement. (2) Non-rheumatic mitral regurgitation: ?Status:?Acute ?Comment: Mod-Severe PER echo 05/06/22 ?Plan: Again the patient does appear to have concerns of significant mitral valve regurgitation related to her mitral valve prolapse. This may be contributing to her symptoms. She will continue her current therapy. She will continue her noninvasive and invasive evaluation as noted. (3) Shortness of breath: ?Status:?Acute ?Plan: The patient still has an element of shortness of breath/dyspnea despite her diuretic therapy. She will continue her medical therapy at this time. She will proceed with additional cardiovascular studies as noted. (4) Edema: ?Status:?Acute ?Plan: The patient's lower extremity edema has improved/resolved on her diuretic therapy. Thus she will continue her medications. ? ? ? Orders: Orders 12 Lead EKG performed by [facility] Today I34.0 - Nonrheumatic mitral (valve) insufficiency, I34.1 - Nonrheumatic mitral (valve) prolapse, R01.1 - Cardiac murmur, unspecified ? Left & Right Heart Cath Today I34.0 - Nonrheumatic mitral (valve) insufficiency, I34.1 - Nonrheumatic mitral (valve) prolapse, R06.02 - Shortness of breath, R60. 9 - Edema, unspecified ? Basic Metabolic Profile (BMP) Today I34.0 - Nonrheumatic mitral (valve) insufficiency, I34.1 - Nonrheumatic mitral (valve) prolapse, R06.02 - Shortness of breath, R60.9 - Edema, unspecified ? Partial Thromboplast Time Today I34.0 - Nonrheumatic mitral (valve) insufficiency, I34.1 - Nonrheumatic mitral (valve) prolapse, R06.02 - Shortness of breath, R60.9 - Edema, unspecified ? Prothrombin Time w/INR Today I34.0 - Nonrheumatic mitral (valve) insufficiency, I34.1 - Nonrheumatic mitral (valve) prolapse, R06.02 - Shortness of breath, R60.9 - Edema, unspecified ? Echo Transesophageal (PHYLICIA) Today I34.0 - Nonrheumatic mitral (valve) insufficiency, I34.1 - Nonrheumatic mitral (valve) prolapse, R06.02 - Shortness of breath, R60.9 - Edema, unspecified ? CBC W/Diff, Automated Today I34.0 - Nonrheumatic mitral (valve) insufficiency, I34.1 - Nonrheumatic mitral (valve) prolapse, R06.02 - Shortness of breath, R60.9 - Edema, unspecified ? Plan Details Additional Comments: Overall the concern is the patient's underlying mitral valve disease process and that she is going to be in need of mitral valve repair/replacement. Thus she will continue her medical therapy and proceed with additional noninvasive valuation with transesophageal echocardiogram as well as diagnostic cardiac catheterization.? The procedure and risk were discussed with her.? She was agreeable to this approach. Thank you for allowing me to participate in the care of your patient.? Please don't hesitate to call if any issues arise. This note was generated using a voice recognition system and there may be incorrect words, spelling or punctuation that were not noted when reviewing the office note prior to saving. Follow Up: ? ? 3 Months (PFM ) Coding Level of Care Code Off vis,new,level 5 Diagnoses Nonrheumatic mitral (valve) prolapse? I34.1 Non-rheumatic mitral regurgitation? I34.0 Shortness of breath? R06.02 Edema? R60.9 Coding Level of Care Code Off vis,new,level 5 Diagnoses Nonrheumatic mitral (valve) prolapse? I34.1 Non-rheumatic mitral regurgitation? I34.0 Shortness of breath? R06.02 Edema? R60.9 08/14/22 1243 <Electronically signed by Clifton Meza MD> Date Clifton Meza MD Cosigner Signature: Date (if applicable) CC:? Dr. Shanika Messer MD ~ Assessment & Plan Addt'l Comments I have re-examined the patient. There are no clinical changes since date of exam. This note was generated using a voice recognition system and there may be incorrect words, spelling or punctuation that were not noted when reviewing the office note prior to saving.
--- NOTE | 2022-09-02 09:49 | ECHOTEE_ITS ---
Reason For Study: MVP Medication PHYLICIA probe 6VT-D (SN [id number]) passed without difficulty. No complications were noted. Cetacaine Topical [place] given X3 orally. Versed 2 mg given slow IVP. Fentanyl 100 mcg given slow IVP. Performed a rapid injection of agitated mix of 9 cc saline and 1cc air to assess for atrial septal defect. Left Ventricle Normal LV size. Left ventricular systolic function is normal. The estimated ejection fraction is 65 %. No regional wall motion abnormalities noted. Right Ventricle Normal RV size. The right ventricular wall motion is normal. Atria No doppler evidence for ASD. Bubble contrast study negative for right to left interatrial shunt. The left atrium is moderately enlarged. There is no sponatenous contrast in the left atrium. No thrombus is detected in the left atrial appendage. Normal right atrium. There is no sponatenous contrast in the right atrium. Mitral Valve There is no mitral annular calcification. Mild diffuse mitral valve thickening. Myxomatous mitral valve. Severe mitral valve prolapse. Severe (4+) eccentric mitral valve insufficiency. Tricuspid Valve Normal tricuspid valve. Mild tricuspid valve insufficiency. Aortic Valve Trisinus/trileaflet aortic valve. Mild diffuse aortic valve thickening. Pulmonic Valve The pulmonic valve is not well visualized. Vessels Normal appearing thoracic aorta. Pericardium No pericardial effusion. ECHO/Echo Transesophageal (PHYLICIA) Interpretation Summary Left ventricular systolic function is normal. The estimated ejection fraction is 65 %. The left atrium is moderately enlarged. There is no sponatenous contrast in the left atrium. No thrombus is detected in the left atrial appendage. Myxomatous mitral valve. Severe mitral valve prolapse. Mild diffuse mitral valve thickening. Severe (4+) eccentric mitral valve insufficiency. Mild tricuspid valve insufficiency. Mild diffuse aortic valve thickening. Bubble contrast study negative for right to left interatrial shunt. Comment: Based upon the 2D and 3D echocardiographic images obtained there appea rs to be severe mitral valve prolapse with consideration to a partially flail mitral valve appa rat in the P2 distribution. Ordering Physician: Clifton Meza Referring Physician: Clifton Meza Performed By: Kathi Carlson RCS
== END | disposition home or self-care (01) ==
LOC: CVS 09:47
PROVIDERS: PCP Family Medicine; Referring Provider Internal Medicine Cardiovascular Disease; Visit Provider Internal Medicine Cardiovascular Disease
DX: I34.0 Nonrheumatic mitral (valve) insufficiency (principal); I34.1 Nonrheumatic mitral (valve) prolapse; R60.0 Localized edema; Z91.89 Other specified personal risk factors, not elsewhere classified; R06.02 Shortness of breath
CPT/HCPCS: 87426; 93312; 93320; 93325; C9803; J7040; A4216

== ENCOUNTER 2022-09-09 08:32 | Day surgery (SDC) | payer OTHER, SELFPAY ==
[2022-09-01 15:00] LABS: Absolute Lymphocyte Count 2.45 X10^3/uL (0.83-4.51); Basophil# 0.02 X10^3/uL; Basophil% 0.3 % (0-1); Eosinophil# 0.16 X10^3/uL; Eosinophils% 2.2 % (0-5); Hematocrit 36.6 % (37-47); Hemoglobin 11.8 g/dL (12.0-15.0); Lymphocyte # 2.45 X10^3/ul (0.83-4.51); Lymphocyte % 33.2 % (19-41); Mean Corp Hgb Conc 32.2 g/dL (32-36); Mean Corpuscular Hgb 28.7 pg (27.0-32.0); Mean Corpuscular Volume 89.1 fL (81-99); Mean Platelet Vol. 9.5 fl (6.2-12.0); Monocyte% 9.5 % (0-10); NRBC Flagged by Analyzer 0 % (0-5); Neutrophil # 4.03 X10^3/uL (2.7-7.7); Neutrophil % 54.5 % (47-70); Platelet Count 251 K/mm3 (150-450); RBC Distribution Width CV 13.3 % (11.6-14.6); RBC Distribution Width SD 43.8 fl (35.1-43.9); Red Blood Count 4.11 M/mm3 (4.2-5.4); White Blood Count 7.4 K/mm3 (4.4-11.0)
[2022-09-01 15:11] LABS: Partial Thromboplast Time 31.5 Seconds (24.1-36.2); Prothrombin Time (Protime)PT. 13.1 SECONDS (11.7-14.9)
[2022-09-01 15:45] LABS: Anion Gap 3 (5-15); BUN 21 mg/dL (7-18); BUN/Creat Ratio 29.8 RATIO (10-20); Calcium,Total 8.9 mg/dL (8.5-10.1); Chloride 109 mmol/L (98-107); EST Glomerular Filtration Rate 89 mL/min (>60); Est Glom Filt Rate - Afr Amer 108 mL/min (>60); Glucose 96 mg/dL (74-106); Potassium 3.9 mmol/L (3.5-5.1); Sodium Level 142 mmol/L (136-145)
[2022-09-08 08:21] VITALS: BMI 24.1
--- NOTE | 2022-09-08 18:06 | HP.PCM_ITS ---
History and Physical Date of Admission: 09/09/22 [facility] [address] [place] [address] Name:ANISH KAY : 1960 Provider: Dr. Clifton Meza MD Age/Sex:? 62/F HPI HPI History of Present Illness Surgical H&P: Yes Details: This is a 62-year-old white female who is referred for evaluation of shortness of breath/dyspnea, lower extremity edema, and findings of mitral valve prolapse with mitral valve regurgitation.? She states to the best of her knowledge she had done well until earlier this year.? She states she started to notice concerns of shortness of breath and dyspnea which she thought was out of proportion to her underlying asthma.? She also noted edema from her lower thighs/upper legs going down to her ankle and pedal areas.? She was evaluated by her primary care physician.? She states at that time there was concerns of a cardiac murmur.? Thus she proceeded to medical therapy and an outpatient transthoracic echocardiogram. From a medical standpoint she was placed on diuretic therapy with furosemide.? She states since initiating diuretic therapy and wearing support stockings when she is standing she has had no recurrence of her lower extremity edema.? However, she still has concerns of her shortness of breath and dyspnea. She underwent evaluation with a transthoracic echocardiogram.? This was performed on 05-06-2022.? The results are noted below. She denies chest discomfort suspicious for angina pectoris.? She has not had any acute orthopnea or PND.? There is been no near-syncope or syncope. She had an ECG in the office today.? She is noted to be in sinus rhythm with poor R wave progression. Intake Vital Signs ? 05/15/2116:31 05/11/2201:31 08/14/2210:35 08/14/2210:38 Height 5 ft 8.5 in 5 ft 8 in 5 ft 8 in 5 ft 8 in Weight: ? 159 lb 9.835 oz ? 159 lb 2 oz BMI ? 24.3 ? 24.2 BP ? 154/86 H ? 132/68 H Blood Pressure Location ? ? ? Lt brachial Position ? ? ? Sitting Respiration ? 18 ? 16 Pulse ? 92 ? 96 Pulse Source ? ? ? Auscultation Temp ?C 98.5 F ? ? Pulse Oximetry (%) ? 97 ? ? Intake Visit Reasons:?MURMUR/REF. 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 Accompanied by: Self Allergies aspirin Allergy (Verified 08/14/22 10:38) Vomitingerythromycin base [Erythromycin Base] Allergy (Verified 08/14/22 10:38) VomitingPenicillins Allergy (Verified 08/14/22 10:38) Angioedemaprocaine HCl [From Novocain] Allergy (Verified 08/14/22 10:38) Otheribuprofen Adverse Reaction (Unknown, Verified 08/14/22 10:38) Vomiting Medications albuterol sulfate 90 mcg/actuation aerosol inhaler (Ventolin HFA) 2 puff inhalation Q4H PRN PRN Sob &/Or Wheezing 02/05/16 [History Confirmed 08/14/22] iron, carbonyl 45 mg tablet (Feosol) 45 mg PO QMONTH supplement 02/05/16 [History Confirmed 08/14/22] pantoprazole 40 mg tablet,delayed release 40 mg PO BID #60 tabs 11/14/17 [Rx Confirmed 08/14/22] fluticasone propionate 50 mcg/actuation nasal spray,suspension (Flonase Allergy Relief) 1 spray intranasal DAILY PRN allergy symptoms 08/12/22 [History Confirmed 08/14/22] bisacodyl 5 mg tablet,delayed release (Gentle Laxative (bisacodyl)) 5 mg PO ONCE PRN 08/14/22 [History Confirmed 08/14/22] furosemide 20 mg tablet 20 mg PO DAILY 08/14/22 [History Confirmed 08/14/22] PFSH Medical History? Anemia Asthma Constipation Heart murmur Non-rheumatic mitral regurgitation Nonrheumatic mitral (valve) prolapse Seasonal allergies Surgical History? History of right oophorectomy Family History? Grandmother Arrhythmia Presence of permanent cardiac pacemaker Social History? Smoking Status:? Never smoker alcohol intake:? never substance use type:? does not use caffeine:? Yes (occasional) ROS Const Const: Negative for fatigue, weakness, body ache, fever(s), headache(s), chills, frequent falls, night sweats, daytime sleepiness, difficulty sleeping, excessive sweating, weight gain, weight loss, increased appetite, poor appetite, anorexia or other Eyes Eyes: Negative for blurry vision or double vision ENT ENT: Negative for headache(s), dizziness or balance problems Cardio Palpitations: Yes (occasional) feels like its: irregular Edema: Bilateral (LE controlled w/ medication Lt>Rt; wears compression socks) Muscle aches with walking: None Resp Respiratory: Positive for SOB with activity (occasional other than asthma, bending over); Negative for SOB at rest, SOB orthopnea\SOB lying down, Cough, Coughing up blood/hemoptysis, chest congestion, pain on inspiration, snoring, stridor, wheezing, crackles, paroxysmal nocturnal dyspnea or other Musc Musc: Positive for joint pain (bilat knees); Negative for muscle aches/ myalgia, muscle weakness or balance problems Neuro Neuro: Negative for dizziness, lightheadedness, near syncope, syncope, orthostatic symptoms, frequent falls, headache(s), weakness, confusion, memory loss, restless legs, blurry vision, double vision, vertigo, seizures, lack of coordination or other Endo Endo: Negative for fatigue or excessive sweating Cardiology Exam Const Appearance: cooperative, healthy appearing, comfortable, no acute distress and well developed Nutritional Appearance: average body habitus Orientation: alert, awake and oriented x3 Head Head: normal to inspection, normocephalic and atraumatic Ears: hearing grossly normal bilaterally Nose: external nose normal Face and Sinus: face symmetric Eyes Eyelids: eyelids normal Conjunctivae: conjunctivae normal Pupils: PERRL EOM: EOM intact bilaterally Neck Neck: normal visual inspection Carotids: normal carotid upstroke Chest Chest inspection: normal inspection of the chest, symmetric chest movement and normal respiratory effort Auscultation: Bilateral: Clear to Auscultation Cardio Palpation: normal PMI Rate: regular rate Rhythm: regular rhythm Heart sounds: S1 normal and S2 normal Murmur: Grade 4/6, loud, harsh, holosystolic, LLSB, apex, axilla, LVOT, sternal notch and radiates to carotids and left posterior thorax GI GI: normal to inspection, soft and bowel sounds present Neuro General: patient alert, patient awake, patient oriented x3, gait normal and moves all extremities Skin Skin: no rashes or lesions noted Extremities Pulses: Normal: Right Radial Pulse and Left Radial Pulse Lower Extremity Edema: None: Bilateral Psych Psychological: normal affect Supplemental Info Supplemental Information Echocardiogram: 05-06-2022 Interpretation Summary Mildly dilated left ventricle. Left ventricular systolic function is normal. The estimated ejection fraction is 65 %. The left atrium is moderately enlarged. Prominent eustachian valve. Aneurysmal atrial septum. Myxomatous mitral valve. Severe mitral valve prolapse, posterior leaflet Bileaflet diffuse mitral valve thickening. Moderately severe (3+) eccentric mitral valve insufficiency. Mild tricuspid valve insufficiency. Mild diffuse aortic valve thickening. Mild focal aortic valve calcification. Mild (1+) eccentric pulmonic valve insufficiency. Right ventricular systolic pressure estimated to be 39 mmHg. Transmitral diastolic flow velocities suggest diastolic dysfunction (pseudonormal pattern). Bubble contrast study negative for right to left interatrial shunt. Labs: ?? ? No Data to Display Diagnostics: ?? ? Electrocardiogram ? Echocardiogram ? Chest X-Ray ? Pulmonary: ?? ? 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 This could be the etiology for her MR and her subsequent symptoms with respect to her shortness of breath/dyspnea as well as concerns contributing to her lower extremity peripheral pitting edema. From a cardiac standpoint she does appear to be improved on her diuretic therapy.? This will be continued. She will be asked to have further evaluation of her mitral valve disease process with a transesophageal echocardiogram. However, it was felt prudent that she be further evaluated with a diagnostic cardiac catheterization.? This would be in preparation for a CT surgery consultation for mitral valve repair/replacement. (2) Non-rheumatic mitral regurgitation: ?Status:?Acute ?Comment: Mod-Severe PER echo 05/06/22 ?Plan: Again the patient does appear to have concerns of significant mitral valve regurgitation related to her mitral valve prolapse. This may be contributing to her symptoms. She will continue her current therapy. She will continue her noninvasive and invasive evaluation as noted. (3) Shortness of breath: ?Status:?Acute ?Plan: The patient still has an element of shortness of breath/dyspnea despite her diuretic therapy. She will continue her medical therapy at this time. She will proceed with additional cardiovascular studies as noted. (4) Edema: ?Status:?Acute ?Plan: The patient's lower extremity edema has improved/resolved on her diuretic therapy. Thus she will continue her medications. ? ? ? Orders: Orders 12 Lead EKG performed by [facility] Today I34.0 - Nonrheumatic mitral (valve) insufficiency, I34.1 - Nonrheumatic mitral (valve) prolapse, R01.1 - Cardiac murmur, unspecified ? Left & Right Heart Cath Today I34.0 - Nonrheumatic mitral (valve) insufficiency, I34.1 - Nonrheumatic mitral (valve) prolapse, R06.02 - Shortness of breath, R60.9 - Edema, unspecified ? Basic Metabolic Profile (BMP) Today I34.0 - Nonrheumatic mitral (valve) insufficiency, I34.1 - Nonrheumatic mitral (valve) prolapse, R06.02 - Shortness of breath, R60.9 - Edema, unspecified ? Partial Thromboplast Time Today I34.0 - Nonrheumatic mitral (valve) insufficiency, I34.1 - Nonrheumatic mitral (valve) prolapse, R06.02 - Shortness of breath, R60.9 - Edema, unspecified ? Prothrombin Time w/INR Today I34.0 - Nonrheumatic mitral (valve) insufficiency, I34.1 - Nonrheumatic mitral (valve) prolapse, R06.02 - Shortness of breath, R60.9 - Edema, unspecified ? Echo Transesophageal (PHYLICIA) Today I34.0 - Nonrheumatic mitral (valve) insufficiency, I34.1 - Nonrheumatic mitral (valve) prolapse, R06.02 - Shortness of breath, R60.9 - Edema, unspecified ? CBC W/Diff, Automated Today I34.0 - Nonrheumatic mitral (valve) insufficiency, I34.1 - Nonrheumatic mitral (valve) prolapse, R06.02 - Shortness of breath, R60.9 - Edema, unspecified ? Plan Details Additional Comments: Overall the concern is the patient's underlying mitral valve disease process and that she is going to be in need of mitral valve repair/replacement. Thus she will continue her medical therapy and proceed with additional noninvasive valuation with transesophageal echocardiogram as well as diagnostic cardiac catheterization.? The procedure and risk were discussed with her.? She was agreeable to this approach. Thank you for allowing me to participate in the care of your patient.? Please don't hesitate to call if any issues arise. This note was generated using a voice recognition system and there may be incorrect words, spelling or punctuation that were not noted when reviewing the office note prior to saving. Follow Up: ? ? 3 Months (PFM ) Coding Level of Care Code Off vis,new,level 5 Diagnoses Nonrheumatic mitral (valve) prolapse? I34.1 Non-rheumatic mitral regurgitation? I34.0 Shortness of breath? R06.02 Edema? R60.9 Coding Level of Care Code Off vis,new,level 5 Diagnoses Nonrheumatic mitral (valve) prolapse? I34.1 Non-rheumatic mitral regurgitation? I34.0 Shortness of breath? R06.02 Edema? R60.9 Clifton Meza MD CC:? Dr. Shanika Messer MD ~ Assessment & Plan Addt'l Comments Addendum: Date: 09/09/2022 The patient underwent further evaluation with a transesophageal echocardiogram on 09-02-2022. The results are noted below. Interpretation Summary Left ventricular systolic function is normal. The estimated ejection fraction is 65 %. The left atrium is moderately enlarged. There is no sponatenous contrast in the left atrium. No thrombus is detected in the left atrial appendage. Myxomatous mitral valve. Severe mitral valve prolapse. Mild diffuse mitral valve thickening. Severe (4+) eccentric mitral valve insufficiency. Mild tricuspid valve insufficiency. Mild diffuse aortic valve thickening. Bubble contrast study negative for right to left interatrial shunt. Comment: Based upon the 2D and 3D echocardiographic images obtained there appears to be severe mitral valve prolapse with consideration to a partially flail mitral valve appa ratus in the P2 distribution. The patient is going to proceed with further evaluation with diagnostic cardiac catheterization. The procedure and risks of been discussed with her. She was agreeable to this approach. This note was generated using a voice recognition system and there may be incorrect words, spelling or punctuation that were not noted when reviewing the office note prior to saving.
[2022-09-09] VITALS (7 sets, daily range): BP systolic 124–147; BP diastolic 63–83; PULSE 73–90; RESP 18; O2SAT 76–98
--- NOTE | 2022-09-09 14:39 | CL.D_ITS ---
Patient Name: ANISH LANDON Study Date: 09/09/2022 Performing: Clifton Meza MD Ht: 68 inches 172.72 cm : 1960 Wt: 159 lbs 72.12 kg Age: 62 Gender: female BSA: 1.85 PROCEDURE(S) PERFORMED DC06-([id number])RHC/LHC/COR CLINICAL PROFILE AND INDICATIONS Indications: Valvular Disease, Pre-Operative Evaluation Heart Failure: None Stress/Imaging Stress/Image Study Performed: No Angina Classification Anginal Classification w/in 2 Weeks: Anginal Equivalent Dyspnea CAD Presentations: Other: shortness of breath CONCLUSIONS Right heart pressures - mildly to moderately elevated The patient has pulmonary hypertension which is mild to moderate Intracardiac shunting: None Normal Left Ventricular End Diastolic Pressure [place] Multivessel CAD RECOMMENDATIONS Risk factor modification Medical therapy Surgery consult for coronary revascularization Surgery consult for valvular disease DESCRIPTION OF PROCEDURE The patient arrived to the procedure lab. The risks and benefits of the procedure as well as a full description of our services here and current unavailability of surgical backup were fully explained to the patient and/or their significant other prior to the catheterization. The Timeout was completed, verifying the correct patient and procedure. The patient's procedural site was prepped and draped in the usual fashion. Local anesthetic was given subcutaneously to right groin region with Lidocaine 2%. Local anesthetic was given subcutaneously to right radial region with Lidocaine 2%. Using a modified Seldinger technique, arterial access was obtained via the right radial artery, a 6Fr sheath was inserted. Venous access was obtained via the right femoral vein, a 7Fr sheath was inserted. A 7Fr thermal dilution catheter was inserted and right heart pressures were recorded, it was then advanced to PA position for cardiac outputs. O2 saturations were then obtained. Thermal dilution cardiac outputs were then recorded. LV to AO pullback pressures were then recorded. Left Coronary Artery selective angiography was performed in multiple views using a 5 Fr. 4.0 [place] catheter. Right Coronary Artery selective angiography was then performed in multiple views using a 6 Fr. JR 4 catheter. additional O2 saturations were then obtained. The Thermal dilution catheter was then removed.The arterial sheath was pulled and a TR Band was applied for hemostasis-10 cc air. The venous sheath was then pulled and manual compression applied until hemostasis achieved CORONARY ANGIOGRAPHY DOMINANCE: Right Dominant LEFT HEART ASSESSMENT Left Ventricular Ejection Fraction: Not assessed Normal Left Ventricular End Diastolic Pressure LVEDP: 12 mmHg RIGHT HEART ASSESSMENT Thermal CO: 5.88 Thermal CI: 3.17 Jose CO: 6.68 Jose CI: 3.6 PW: 12 PA: 43/14 27 RV: 44/7 11 RA: 8/5 5 PVR: 204 SVR: 1128 Aortic Valve Area: >3.50 Aortic Valve Index: 1.89 Aortic Valve Mean Gradient: 13.3733 Mitral Valve Area: 2.35 Mitral Valve index: 1.27 Mitral Valve Mean Gradient: 12.7746 Right Heart pressures - elevated (mild to moderately elevated RVSP) Pulmonary Hypertension Mild - Moderately elevated PASP Intracardiac shunting: None LEFT MAIN: distal: 25 % Stenosis LEFT ANTERIOR DESCENDING ARTERY: MID LAD: possible intramyocardial bridging segment with 50-75 % Stenosis CIRCUMFLEX ARTERY: PROX CIRC: Mild luminal irregularities RIGHT CORONARY ARTERY: Mild luminal irregularities COMPLICATIONS No Complications PROCEDURE MEDICATIONS Fentanyl 50 mcg IV Versed 1 mg IV Versed 1 mg IV Fentanyl 50 mcg IV Oxygen: 4 L/min via nasal cannula Oxygen: Discontinued Heparin diluted in 23cc Heparinized saline. Patient given 10cc IA of this solution. 09/09/2022 13:24:08 Verapamil 2.5mg, Ntg 100mcgs, 2000 units of Heparin diluted in 23cc Heparinized saline. Patient given 10cc IA of this solution. 09/09/2022 13:24:08 SUMMARY OF HEMODYNAMIC DATA Time AIR REST ECG 09:01:04 RA 8/5 (5) SV 13:29:22 RV 44/7, 11 13:29:49 PW (12) PV 13:30:43 PA 43/14 (27) PA 13:31:01 LV 129/-8, 13 13:39:18 PW 11/02 (12) 13:39:18 LV 131/-10, 12 13:39:24 PW 11/03 (12) 13:39:24 LVp 128/-10, 14 13:39:49 AOp 118/58 (84) 13:39:55 PA 40/12 (26) 13:40:33 AO 121/64 (88) SA 13:44:17 AIR REST 14:38:20 Valve Area (c P-P/ms Time AIR REST Mitral 2.35 12.8 mn/224 ms 13:39:24 Aortic 3.50 13.4 mn/78 ms 10.0 pk/78 ms 13:39:49 Type SV CO (l/m) CI (l/m/ HR Time AIR REST Thermal 68.40 5.88 3.17 86 09:01:04 Jose 77.70 6.68 3.60 86 09:01:04 Label % O2 Pres/Loc Time AIR REST AO 97 PV 14:10:51 PA 66 PA 14:10:57 SVC 61 14:11:03 IVC 74 SV 14:11:08 Signed By Clifton Meza MD On 09/09/2022 14:39:08 Clifton Meza MD
== END 2022-09-09 17:51 | disposition home or self-care (01) ==
LOC: CLSP 08:38 → PCU 15:05
PROVIDERS: PCP Family Medicine; Referring Provider Internal Medicine Cardiovascular Disease; Visit Provider Internal Medicine Cardiovascular Disease
DX: I34.0 Nonrheumatic mitral (valve) insufficiency (principal); I27.20 Pulmonary hypertension, unspecified; J45.909 Unspecified asthma, uncomplicated; I34.1 Nonrheumatic mitral (valve) prolapse; R60.0 Localized edema; R06.02 Shortness of breath; Z82.49 Family history of ischemic heart disease and other diseases of the circulatory system
CPT/HCPCS: 36415; 80048; 85025; 85610; 85730; 93456; 99152; 99153; C1751; C1769; C1894; Q9967

== ENCOUNTER 2022-12-07 17:42 | Emergency (ER) | payer OTHER, SELFPAY ==
[2022-12-07 17:43] VITALS: BP 111/67; PULSE 111; RESP 16; TEMP 36.6; O2SAT 100; BMI 24.5
[2022-12-07 17:52] VITALS: BP 140/51; PULSE 109; RESP 18; O2SAT 98
--- NOTE | 2022-12-07 18:16 | CT_ITS ---
EXAM: CT ANGIOGRAPHY CHEST WITHOUT AND WITH INTRAVENOUS CONTRAST CLINICAL INDICATION: chest pain, TECHNIQUE: Helically acquired angiography images were obtained of the chest without and with intravenous contrast. This CT exam was performed using one or more of the following dose reduction techniques: automated exposure control, adjustment of the mA and/or kV according to patient size, and/or use of iterative reconstruction technique. This report was created using [employer] report generation technology. MIP reconstructed images were created and reviewed. CONTRAST: IV 100mL [id number] COMPARISON: None. FINDINGS: PULMONARY ARTERIES: Unremarkable. Normal in caliber. No evidence of pulmonary embolism. AORTA: Unremarkable. Normal in caliber. No evidence of dissection. GREAT VESSELS OF AORTIC ARCH: Unremarkable. Normal in caliber. No evidence of dissection. LUNGS AND PLEURAL SPACES: Small left pleural effusion. No mass. No pneumothorax. HEART: Unremarkable. Heart size is normal. No pericardial effusion. No signs of right heart strain, ratio of right ventricle to left ventricle measures less than 1. MEDIASTINUM: Unremarkable. No mediastinal or hilar adenopathy. Esophagus is unremarkable. No hiatal hernia. THYROID: Unremarkable. No thyroid lesions. BONES/JOINTS: Unremarkable. No suspicious lytic or blastic abnormality. CT/CTA Chest W/WO Contrast IMPRESSION: Small left pleural effusion. Otherwise negative study. Electronically Signed: Jennifer Singh MD at 20:09 EST Reading Location ID and State: [id number] / Tel , Service support ,
--- NOTE | 2022-12-07 18:17 | EKG12_ITS ---
Test Reason : CHEST OTHER Blood Pressure : / mmHG Vent. Rate : 100 BPM Atrial Rate : 100 BPM P-R Int : 152 ms QRS Dur : 080 ms QT Int : 362 ms P-R-T Axes : 020 -13 097 degrees QTc Int : 466 ms Normal sinus rhythm Minimal voltage criteria for LVH, may be normal variant ( R in aVL ) Inferior infarct , age undetermined Cannot rule out Anterior infarct , age undetermined Abnormal ECG Confirmed by SOBIA MUNOZ, VIRGILIO ([id number]), manager editorial CHALO AGUILAR ([id number]) on 12/08/2022 10:18:33 AM Referred By: Confirmed By:VIRGILIO RAMSAY MD
--- NOTE | 2022-12-07 18:18 | EDS_ITS ---
HPI History of Present Illness Chief Complaint: Chest Other Detail of Chief Complaint: Chest pain Informant: patient Narrative Narrative: Patient presents with chest discomfort at*about an hour ago. Patient tells me that she was leaving the house and the screen door hit her in the left shoulder jarring her. Subsequently later she started having discomfort in her left chest feeling like a grating sensation like something is torn. Patient is concerned because she had open heart surgery on November 28 where she had a mitral valve repair and one-vessel right coronary bypass at [facility]. Patient not anticoagulated currently. Pain worse with certain movements and at times deep breath. [facility] Medical History (Updated 12/07/22 @ 21:[address] Ashley Nova, DO) Anemia Asthma Atherosclerotic heart disease of [place] coronary artery without angina pectoris Constipation Heart murmur History of left heart catheterization (LHC) (~09/09/22) Non-rheumatic mitral regurgitation Nonrheumatic mitral (valve) prolapse Seasonal allergies Home Medications albuterol sulfate 90 mcg/actuation aerosol inhaler (Ventolin HFA) 2 puff inhalation Q4H PRN PRN Sob &/Or Wheezing 02/05/16 [History Last Taken 11/11/17] iron, carbonyl 45 mg tablet (Feosol) 45 mg PO QMONTH supplement 02/05/16 [History Last Taken 11/11/17] pantoprazole 40 mg tablet,delayed release 40 mg PO BID #60 tabs 11/14/17 [Rx Last Taken Unknown] fluticasone propionate 50 mcg/actuation nasal spray,suspension (Flonase Allergy Relief) 1 spray intranasal DAILY PRN allergy symptoms 08/12/22 [History Last Taken Unknown] bisacodyl 5 mg tablet,delayed release (Gentle Laxative (bisacodyl)) 5 mg PO ONCE PRN Congestion 08/14/22 [History Last Taken Unknown] furosemide 20 mg tablet 20 mg PO DAILY 08/14/22 [History Last Taken Unknown] hydrocodone-acetaminophen 5-325mg 5mg-325mg 1 tab PO Q4H PRN PRN Pain 2 days #10 TABLETS 12/07/22 [Rx Last Taken Unknown] Allergy/AdvReac Type Severity Reaction Status Date / Time aspirin Allergy Vomiting Verified 12/07/22 17:54 erythromycin base Allergy Vomiting Verified 12/07/22 17:54 [Erythromycin Base] Penicillins Allergy Angioedema Verified 12/07/22 17:54 procaine HCl [From Novocain] Allergy Other Verified 12/07/22 17:54 ibuprofen AdvReac Unknown Vomiting Verified 12/07/22 17:54 Family History Grandmother Arrhythmia Presence of permanent cardiac pacemaker Surgical History History of right oophorectomy Social History Smoking Status: Never smoker alcohol intake: never substance use type: does not use caffeine: Yes (occasional) ROS ROS ED Review of Systems ROS Unobtainable: other Constitutional Constitutional ED: Reports lethargy; Denies chills, fever(s), sweats or weight loss Eyes Eyes: Denies blurry vision, change in vision or diplopia ENT ENT ED: Denies rhinorrhea or sore throat Cardiovascular Cardiovascular: Reports chest pain; Denies orthopnea or racing heartbeat Respiratory/Chest Respiratory/Chest: Denies cough, dyspnea, dyspnea on exertion, orthopnea or sputum Gastrointestinal Gastrointestinal: Denies abdominal pain, diarrhea, nausea or vomiting Genitourinary Genitourinary ED: Denies dysuria, hematuria or urinary frequency Musculoskeletal Musculoskeletal: Denies arthralgias, back pain, myalgias or neck pain Integumentary Denies abscess, Abrasions or rash Neurologic Neurologic: Denies headache(s) or weakness Psychiatric Psychiatric: Denies anxiety, depression or suicidal thoughts Endocrine Endocrinology: Denies polydipsia, polyphagia or polyuria Hematologic/Lymphatic Hematologic/Lymphatic: Denies easy bleeding, easy bruising or lymphadenopathy Allergic/Immunologic Allergic/Immunologic ED: Denies mouth swelling, tongue swelling or urticaria EXAM Physical Exam Const Vital Signs: 12/07/22 17:43 12/07/22 17:52 12/07/22 17:54 Temperature 97.9 F Temperature Source Temporal Pulse Rate 111 H 109 H Respiratory Rate 16 18 Respiratory Effort Normal Non-Labored Blood Pressure 111/67 140/51 H Blood Pressure Mean 81 80 Pulse Ox 100 98 Oxygen Delivery Method Room Air Room Air 12/07/22 18:33 12/07/22 19:48 12/07/22 21:02 Temperature Temperature Source Pulse Rate 96 101 H Respiratory Rate 22 H 17 Respiratory Effort Blood Pressure 121/59 H 114/58 L Blood Pressure Mean 79 76 Pulse Ox 96 100 Oxygen Delivery Method Room Air Room Air Room Air 12/07/22 21:23 Temperature Temperature Source Pulse Rate 96 Respiratory Rate 19 H Respiratory Effort Blood Pressure 114/58 L Blood Pressure Mean Pulse Ox 97 Oxygen Delivery Method Positive well nourished and well developed General Appearance ED: well developed and NAD HEENT Reports TM's clear and moist mucous membranes normocephalic and atraumatic; Negative for trauma or tenderness Tympanic Membrane ED: Yes TM's clear Eyes PERRL and EOMs intact bilaterally General Eye ED: Negative for pale conjunctiva or scleral icterus Neck no lymphadenopathy, supple and no JVD General: Negative for tenderness Chest Wall inspection of chest normal and palpation of chest normal Chest: Negative for tenderness Resp normal respiratory effort and clear to auscultation bilaterally Resp Narrative: Patient has recent sternotomy incision with wound that appears to be healing well. There is no erythema or warmth noted. Patient does have some tenderness palpation over the left lower sternum and ribs. Difficult to reproduce patient's pain. Effort and Inspection: Negative for respiratory distress or pain with movement Auscultation: Negative for rhonchi, wheezes or diminished lung sounds Cardio regular rate, regular rhythm, S1 normal heart sound, S2 normal heart sound and no murmurs Peripheral Pulses: pulses 2+ throughout GI normal to inspection, nondistended, normoactive bowel sounds, soft to palpation, non-tender, non-distended and no masses Back/Spine no CVA tenderness and no thoracic nor lumbar tenderness Extremity normal to inspection General Extremety ED: Negative for edema General Extremity: Negative for edema Neuro oriented x3, CN's II-XII intact bilaterally, no sensory deficits noted and gait normal Sensorium / Orientation: awake, alert, oriented to person, oriented to place and oriented to time Motor Exam: strength 5/5 throughout and strength abnormal Psych mental status grossly normal Skin no rashes or lesions noted and no wounds MDM MDM MDM Narrative Medical decision making narrative: Line established on arrival. Placed on monitoring manager. Etiology of her chest pain in the differential would be cardiac cause versus PE given recent surgery versus musculoskeletal chest wall strain. Patient had an EKG on arrival showed a sinus rhythm with a rate of [address] changes laterally and old inferior infarct. Patient troponin was elevated at 91. Chemistries unremarkable. CBC with differential showed a white count of 11.5 and hemoglobin 9.4. Delta troponin was 96. Patient had a CT of the chest that was negative for PE or dissection. She was noted to have a small left pleural effusion. At this point I discussed case with her surgeon Dr. Bernal who is comfortable with the work-up and did not feel any further intervention was indicated. Patient to keep her appointment with him as instructed. I suspect likely chest wall strain. Lab Data Attestation: I reviewed the patient's lab results. Labs: Laboratory Results - last 24 hr 12/07/22 12/07/22 12/07/22 18:39 18:39 20:39 WBC 11.5 H RBC 3.17 L Hgb 9.4 L Hct 29.4 L MCV 92.7 MCH 29.7 MCHC 32.0 RDW Std Deviation 48.2 H RDW Coeff of [place] 14.6 Plt Count 499 H MPV 9.2 Immature Gran % (Auto) 1.000 H Neut % (Auto) 66.3 Lymph % (Auto) 21.1 [place] % (Auto) 7.4 Eos % (Auto) 3.8 Baso % (Auto) 0.4 Absolute Neuts (auto) 7.6 Absolute Lymphs (auto) 2.43 Nucleated RBC % 0 Sodium 138 Potassium 4.0 Chloride 101 Carbon Dioxide 29.0 Anion Gap 8 BUN 26 H Creatinine 0.83 Estim Creat Clear Calc 70.89 Est GFR (MDRD) Af Amer 89 Est GFR (MDRD) Non-Af 74 BUN/Creatinine Ratio 31.4 H Glucose 170 H Calcium 9.2 Troponin I High Sens 91 H 96 H Radiography Diagnostic Testing: Clinical Impression(s) from Imaging Studies Chest CTA 12/07/22 18:16 IMPRESSION: Small left pleural effusion. Otherwise negative study. Electronically Signed: Jennifer Singh MD at 20:09 EST Reading Location ID and State: [id number] / Tel , Service support , EKG Initial EKG: Attestation: I personally reviewed and interpreted this EKG as follows: Comments: Sinus rhythm with ventricular rate of 100 bpm with old inferior infarct and nonspecific ST changes laterally. Prior EKG tracings: available for review Prior: Changed Discharge Plan Triage Chief Complaint: Chest Other ED Provider: Ashley Nova Dx/Rx/DC Orders Clinical Impression: Chest wall muscle strain Instructions: ED Chest Wall Strain Prescriptions: New hydrocodone-acetaminophen [hydrocodone-acetaminophen] 5-325 mg tablet 1 tab PO Q4H PRN PRN (Reason: Pain) 2 Days Qty: 10 0RF No Action furosemide 20 mg tablet 20 mg PO DAILY bisacodyl [Gentle Laxative (bisacodyl)] 5 mg tablet,delayed release (DR/EC) 5 mg PO ONCE PRN (Reason: Congestion) fluticasone propionate [Flonase Allergy Relief] 50 mcg/actuation s pray,suspension 1 spray intranasal DAILY PRN (Reason: allergy symptoms) Rx Instructions: administer into each nostril albuterol sulfate [Ventolin HFA] 18 GM HFA aerosol inhaler 2 puff inhalation Q4H PRN PRN (Reason: Sob &/Or Wheezing) Label Comments: INHALE 2 (TWO) PUFFS EVERY 4 HOURS NEEDED iron, carbonyl [Feosol] 45 MG capsule 45 mg PO QMONTH pantoprazole 40 MG tablet 40 mg PO BID Qty: 60 0RF Primary Care Provider: Shanika Messer Referrals: Shanika Messer MD [Primary Care Provider] - Activity Restrictions/Additional Instructions: Follow-up with your surgeon as instructed. Disposition Disposition: Home, Self Care
[2022-12-07] MEDS: 0.9% Normal Saline 1,000 ML 150 ML IV (18:44)
[2022-12-07] MEDS: Acetaminophen 500 MG Tablet 1000 MG PO (18:47)
[2022-12-07 18:51] LABS: Absolute Lymphocyte Count 2.43 X10^3/uL (0.83-4.51); Absolute Neutrophil Count 7.6 X10^3/uL (2.0-7.7); Basophil# 0.05 X10^3/uL; Basophil% 0.4 % (0-1); Eosinophil# 0.44 X10^3/uL; Eosinophils% 3.8 % (0-5); Hematocrit 29.4 % (37-47); Hemoglobin 9.4 g/dL (12.0-15.0); Lymphocyte # 2.43 X10^3/ul (0.83-4.51); Lymphocyte % 21.1 % (19-41); Mean Corpuscular Hgb 29.7 pg (27.0-32.0); Mean Corpuscular Volume 92.7 fL (81-99); Mean Platelet Vol. 9.2 fl (6.2-12.0); Monocyte# 0.85 X10^3/uL; Monocyte% 7.4 % (0-10); NRBC Flagged by Analyzer 0 % (0-5); Neutrophil # 7.62 X10^3/uL (2.7-7.7); Neutrophil % 66.3 % (47-70); Platelet Count 499 K/mm3 (150-450); RBC Distribution Width CV 14.6 % (11.6-14.6); RBC Distribution Width SD 48.2 fl (35.1-43.9); Red Blood Count 3.17 M/mm3 (4.2-5.4); White Blood Count 11.5 K/mm3 (4.4-11.0)
[2022-12-07 19:01] LABS: Anion Gap 8 (5-15); BUN 26 mg/dL (7-18); BUN/Creat Ratio 31.4 RATIO (10-20); Calcium,Total 9.2 mg/dL (8.5-10.1); Chloride 101 mmol/L (98-107); Creatinine, Serum 0.83 mg/dL (0.55-1.02); EST Glomerular Filtration Rate 74 mL/min (>60); Est Glom Filt Rate - Afr Amer 89 mL/min (>60); Estimated Creatinine Clearance 70.89 ml/min; Glucose 170 mg/dL (74-106); Sodium Level 138 mmol/L (136-145); Troponin-I HS (w/2H Reflex) 91 pg/mL (3.0-54.0)
[2022-12-07 19:48] VITALS: BP 121/59; PULSE 96; RESP 22; O2SAT 96
[2022-12-07 20:42] LABS: Reflex Troponin-HS? (from REC) Y
[2022-12-07 21:02] VITALS: BP 114/58; PULSE 101; RESP 17; O2SAT 100
[2022-12-07 21:13] LABS: Troponin-I HS 96 pg/mL (3.0-54.0)
[2022-12-07 21:23] VITALS: BP 114/58; PULSE 96; RESP 19; O2SAT 97
== END 2022-12-07 21:50 | disposition home or self-care (01) ==
PROVIDERS: Emergency Provider Emergency Medicine; PCP Family Medicine; Visit Provider Emergency Medicine
DX: S29.011A Strain of muscle and tendon of front wall of thorax, initial encounter (principal); I25.10 Atherosclerotic heart disease of native coronary artery without angina pectoris; J45.909 Unspecified asthma, uncomplicated; W22.8XXA Striking against or struck by other objects, initial encounter
CPT/HCPCS: 71275; 80048; 84484; 85025; 93005; 96360; 96361; 99285; J7030; Q9967; A4216

== ENCOUNTER 2022-12-20 00:52 | Emergency (ER) | payer OTHER, MEDICAID, SELFPAY ==
[2022-12-20 00:53] VITALS: BP 119/53; PULSE 137; RESP 17; TEMP 36.1; O2SAT 99; BMI 23.3
[2022-12-20 00:59] VITALS: BMI 23.3
--- NOTE | 2022-12-20 01:29 | CT_ITS ---
STUDY: CTA HEAD AND NECK WITH CONTRAST REASON FOR EXAM: Female, 62 years old. facial numbness RADIATION DOSAGE (If Supplied By Facility): CTDIvol = ( 29.35 ) mGy, DLP = ( 1559.70 ) mGycm TECHNIQUE: CT angiography was performed with a multi-detector CT scanner. Data acquisition was obtained from the skull base through the vertex following intravenous administration of IV 100mL [id number]-[id number]. MIP images were reconstructed from the axial data set. Post-processing of the angiographic images was performed, with multiplanar reformation and 3D reconstruction. Individualized dose optimization techniques were used for this CT. COMPARISON: No relevant priors. FINDINGS: Normal bilateral petrous carotid arteries. Normal right cavernous carotid artery with a normal supraclinoid bifurcation. Normal left cavernous carotid artery with a normal supraclinoid bifurcation. Normal right A1 segments of the anterior cerebral artery. Normal left A1 segments of the anterior cerebral artery. Normal intact anterior communicating artery (ACOM). Normal bilateral A2 segments of the anterior cerebral arteries. Normal right M1 and M2 segments of the middle cerebral arteries, with a normal M1 bifurcation. Normal left M1 and M2 segments of the middle cerebral arteries, with a normal M1 bifurcation. Normal right posterior communicating artery (PCOM). There is a persistent origin of the left posterior cerebral artery with absence of the posterior communicating artery (PCOM). Normal bilateral vertebral arteries. Normal basilar artery with a normal basilar bifurcation. The visualized bilateral superior cerebellar (SCA) arteries are normal. Normal bilateral P1, P2 and visualized P3 segments of the posterior cerebral arteries. There is no demonstrated aneurysm of the [place]. There is no demonstrated abnormality of the visualized brain. The noncontrasted study demonstrates symmetric ventricles. There is no visualized acute hemorrhage infarct or edema. AORTIC ARCH: Normal visualized aortic arch. Normal origins of the brachiocephalic, left common carotid, and left subclavian arteries. Incidental visualization of distention of the brachiocephalic vein with visualized gas formation suggesting venous gas likely associated with recent IV placement. There is visualized edema within the prevascular space and a recent appearing sternotomy. There is visualized gas within the right side of the mediastinum. This visualize gas within the bilateral jugular veins and facial veins. RIGHT CAROTID ARTERIES: Normal right common carotid artery (CCA). There is mild atherosclerotic plaque formation with minimal narrowing of the right carotid bulb. Normal origin of the right internal carotid (ICA) artery without a hemodynamically significant stenosis. Normal visualized cervical portion of the right internal carotid artery. Normal origin of the right external carotid artery (ECA). LEFT CAROTID ARTERIES: Normal left common carotid artery (CCA). Normal left common carotid bulb. Normal origin of the left internal carotid (ICA) artery without a hemodynamically significant stenosis. Normal visualized cervical portion of the left internal carotid artery. Normal origin of the left external carotid artery (ECA). VERTEBRAL ARTERIES: Normal bilateral vertebral arteries. There is visualized degenerative change within the cervical spine at C6-C7 there is a broad disc osteophyte [id number] neural foramina narrowing mild central stenosis. There is mild atherosclerotic plaque in the anterior aspect of the aortic arch. There is partial visualization of a pericardial effusion. There is a recent appearing sternotomy with a gap of at least 4.7 mm. This is similar to the recent prior study. CT/CTA Head AND Neck W/ Contrast IMPRESSION: Normal CTA Head and neck with contrast. There is a robust amount of gas within the venous structures. Recommend correlation with possible introduction of a large amount of gas within the venous structures possibly during the contrast by power injector. There is venous gas throughout the visualized facial veins bilateral jugular veins. There is no visualized gas within the venous sinuses. No visualized significant stenosis of the internal carotid arteries. Degenerative change of the cervical spine most significant at C6-C7. Very partially visualized pericardial effusion. Partially visualized atherosclerotic disease of the aorta. Electronically Signed: Danitza Witt MD at 3:08 EST Reading Location ID and State: [facility] / [place] Tel , Service support ,
[2022-12-20 01:45] LABS: Absolute Lymphocyte Count 2.53 X10^3/uL (0.83-4.51); Absolute Neutrophil Count 4.6 X10^3/uL (2.0-7.7); Basophil# 0.04 X10^3/uL; Basophil% 0.5 % (0-1); Eosinophil# 0.28 X10^3/uL; Eosinophils% 3.4 % (0-5); Hematocrit 32.8 % (37-47); Hemoglobin 9.9 g/dL (12.0-15.0); Lymphocyte # 2.53 X10^3/ul (0.83-4.51); Lymphocyte % 30.4 % (19-41); Mean Corp Hgb Conc 30.2 g/dL (32-36); Mean Corpuscular Hgb 28.4 pg (27.0-32.0); Mean Corpuscular Volume 94.3 fL (81-99); Mean Platelet Vol. 9.3 fl (6.2-12.0); Monocyte# 0.85 X10^3/uL; Monocyte% 10.2 % (0-10); NRBC Flagged by Analyzer 0 % (0-5); Neutrophil % 55.3 % (47-70); Platelet Count 459 K/mm3 (150-450); RBC Distribution Width CV 14.4 % (11.6-14.6); RBC Distribution Width SD 49.6 fl (35.1-43.9); Red Blood Count 3.48 M/mm3 (4.2-5.4); White Blood Count 8.3 K/mm3 (4.4-11.0)
[2022-12-20 01:57] LABS: International Normalized Ratio 1.2; Prothrombin Time (Protime)PT. 15.3 SECONDS (11.7-14.9)
[2022-12-20 01:58] LABS: Partial Thromboplast Time 33.2 Seconds (24.1-36.2)
[2022-12-20] MEDS: dilTIAZem 25 MG/5 ML Vial 15 MG IV BOLUS (01:59)
[2022-12-20 02:00] LABS: Anion Gap 8 (5-15); BUN 22 mg/dL (7-18); BUN/Creat Ratio 24.8 RATIO (10-20); Calcium,Total 8.8 mg/dL (8.5-10.1); Chloride 105 mmol/L (98-107); Creatinine, Serum 0.89 mg/dL (0.55-1.02); EST Glomerular Filtration Rate 68 mL/min (>60); Est Glom Filt Rate - Afr Amer 83 mL/min (>60); Estimated Creatinine Clearance 68.49 ml/min; Glucose 141 mg/dL (74-106); Potassium 3.7 mmol/L (3.5-5.1); Sodium Level 141 mmol/L (136-145)
[2022-12-20] MEDS: 0.9% Normal Saline 1,000 ML 999 ML IV (02:02)
[2022-12-20 02:03] VITALS: BP 110/81; PULSE 104; RESP 18; O2SAT 95
[2022-12-20 02:05] LABS: Phosphorus 3.9 mg/dL (2.5-4.9)
[2022-12-20] MEDS: dilTIAZem 25 MG/5 ML Vial 20 MG IV BOLUS (03:29)
--- NOTE | 2022-12-20 03:52 | EX.ED.DYSGE1 ---
HPI History of Present Illness Chief Complaint: Numb/Ting Narrative Narrative: Patient is a 62-year-old female who underwent open heart surgery at [facility] on November 28. She was doing well but then had a accidental fall where she struck her chest and she had to have a CT scan to rule out underlying trauma or pericardial effusion. Patient states that she then went into atrial fibrillation roughly 3 days ago. She states because of that she is now on aspirin and Eliquis. She reports that her rates been hard to control and she saw the heart doctor just yesterday where they upped her metoprolol and added amiodarone. Patient states that tonight she was lying down for bed around midnight when she noticed some numbness/tingling sensation in her bilateral neck/lower face. She states that she was concerned for possible stroke because of this and therefore comes in for evaluation [facility] Medical History Anemia Asthma Atherosclerotic heart disease of [place] coronary artery without angina pectoris Constipation Heart murmur History of left heart catheterization (LHC) (~09/09/22) Non-rheumatic mitral regurgitation Nonrheumatic mitral (valve) prolapse Seasonal allergies Home Medications albuterol sulfate 90 mcg/actuation aerosol inhaler (Ventolin HFA) 2 puff inhalation Q4H PRN PRN Sob &/Or Wheezing 02/05/16 [History Last Taken 11/11/17] iron, carbonyl 45 mg tablet (Feosol) 45 mg PO QMONTH supplement 02/05/16 [History Last Taken 11/11/17] pantoprazole 40 mg tablet,delayed release 40 mg PO BID #60 tabs 11/14/17 [Rx Last Taken Unknown] fluticasone propionate 50 mcg/actuation nasal spray,suspension (Flonase Allergy Relief) 1 spray intranasal DAILY PRN allergy symptoms 08/12/22 [History Last Taken Unknown] bisacodyl 5 mg tablet,delayed release (Gentle Laxative (bisacodyl)) 5 mg PO ONCE PRN Congestion 08/14/22 [History Last Taken Unknown] furosemide 20 mg tablet 20 mg PO DAILY 08/14/22 [History Last Taken Unknown] hydrocodone-acetaminophen 5-325mg 5mg-325mg 1 tab PO Q4H PRN PRN Pain 2 days #10 TABLETS 12/07/22 [Rx Last Taken Unknown] Allergy/AdvReac Type Severity Reaction Status Date / Time aspirin Allergy Vomiting Verified 12/07/22 17:54 erythromycin base Allergy Vomiting Verified 12/07/22 17:54 [Erythromycin Base] Penicillins Allergy Angioedema Verified 12/07/22 17:54 procaine HCl [From Novocain] Allergy Other Verified 12/07/22 17:54 ibuprofen AdvReac Unknown Vomiting Verified 12/07/22 17:54 Family History Grandmother Arrhythmia Presence of permanent cardiac pacemaker Surgical History History of right oophorectomy Social History Smoking Status: Never smoker alcohol intake: never substance use type: does not use caffeine: Yes (occasional) ROS ROS ED Constitutional Constitutional ED: Denies chills or fever(s) Eyes Eyes: Denies change in vision ENT ENT ED: Denies sore throat Cardiovascular Cardiovascular: Reports palpitations and racing heartbeat; Denies chest pain Respiratory/Chest Respiratory/Chest: Denies cough or dyspnea Gastrointestinal Gastrointestinal: Denies abdominal pain, diarrhea, nausea or vomiting Genitourinary Genitourinary ED: Denies dysuria Musculoskeletal Musculoskeletal: Denies myalgias Integumentary Denies rash Neurologic Neurologic: Reports paresthesias; Denies headache(s) Hematologic/Lymphatic Hematologic/Lymphatic: Reports easy bleeding and easy bruising EXAM Physical Exam Const Vital Signs: 12/20/22 00:53 12/20/22 02:03 Temperature 97 F L Temperature Source Temporal Pulse Rate 137 H 104 H Respiratory Rate 17 18 Blood Pressure 119/53 L 110/81 H Blood Pressure Mean 75 90 Pulse Ox 99 95 Oxygen Delivery Method Room Air Room Air Positive well nourished and well developed General Appearance ED: well developed HEENT Reports moist mucous membranes Eyes PERRL and EOMs intact bilaterally Neck supple and no JVD Neck Narrative: No crepitance palpated Chest Wall Chest Narrative: Patient has postsurgical changes consistent with a recent open heart and the wound is clean dry and intact without secondary changes to suggest infection Resp normal respiratory effort and clear to auscultation bilaterally Cardio Rate: tachycardic and other Other Details: Tachycardic rate with irregularly irregular rhythm consistent with recent diagnosis of atrial fibrillation GI normal to inspection, nondistended, normoactive bowel sounds, non-tender, non-distended and no masses Auscultation: normoactive bowel sounds Palpation: soft Extremity normal to inspection Extremity Narrative: No asymmetric edema no pitting edema negative Homans' sign bilaterally Neuro oriented x3 Neuro Narrative: Patient received an NIH stroke scale score of 1 for mild paresthesias to her face bilaterally greatest on the right. Otherwise there is no extremity weakness no truncal ataxia no altered mental status no dysmetria or otherwise focal finding Sensorium / Orientation: alert Psych mental status grossly normal Skin Skin Narrative: Postsurgical change to the anterior chest wall as documented above MDM MDM MDM Narrative Medical decision making narrative: Patient presented to the ER in atrial fibrillation with RVR but has a known history of this. She also recently saw her ion exchange operator just yesterday and had her metoprolol increased and amiodarone was added. She is on Eliquis and an aspirin and as her stroke scale score is low at a value of 1 I do not feel there is need to activate a stroke alert based on the low NIH stroke scale value and the fact she is already on proper treatment with anticoagulation. Basic blood work was obtained to check for reason of her atrial fibrillation but it shows no severe anemia or electrolyte derangement. CTA of the head and neck were ordered secondary to her paresthesias. Noncontrasted study revealed no acute bleed and the CTA revealed normal vessels without obstruction. However it did document that in the venous system patient has a large amount of air. The patient's been through multiple procedures and testing over the last 10 to 20 days. It is unsure if the amount of air present is accumulation of this or new from the injection this evening for the CTA. However I feel the air present is larger than would be expected from the CTA ordered today and the patient's symptoms started before the injection and have not worsened or changed afterwards. I discussed the case with vascular surgery on-call. They reiterate that at this time the area is present within the vascular system there is no way to spontaneously remove it and the body will resorb on its own. They also state that as she has not had any change or worsening of symptoms since the injection that they do not feel it is worthwhile to stay in the ER/hospital. As the patient has known atrial fibrillation and is in RVR on today's visit she was given Cardizem which reduced the rate to below 100. However after this medication wore off the heart rate began to increase once again. I discussed with patient possible admission because of the known A-fib and is tachycardic rate. However she is not hemodynamically unstable and is anticoagulated and also saw the ion exchange operator just 24 hours ago and had her medication increased secondary to the persistent tachycardia. Therefore she states she does not feel she needs to stay in the hospital secondary to this finding. Therefore at this time as patient is hemodynamically stable with negative imaging studies for acute obstruction/large vessel occlusion or spontaneous hemorrhage as a cause of her symptoms and she is already being treated for her A-fib she will be discharged and can follow-up on an outpatient basis. Lab Data Attestation: I reviewed the patient's lab results. Labs: Laboratory Results - last 24 hr 12/20/22 12/20/22 12/20/22 01:07 01:07 01:07 WBC 8.3 RBC 3.48 L Hgb 9.9 L Hct 32.8 L MCV 94.3 MCH 28.4 MCHC 30.2 L RDW Std Deviation 49.6 H RDW Coeff of Levar 14.4 Plt Count 459 H MPV 9.3 Immature Gran % (Auto) 0.200 Neut % (Auto) 55.3 Lymph % (Auto) 30.4 [place] % (Auto) 10.2 H Eos % (Auto) 3.4 Baso % (Auto) 0.5 Absolute Neuts (auto) 4.6 Absolute Lymphs (auto) 2.53 Nucleated RBC % 0 PT 15.3 H INR 1.2 APTT 33.2 Sodium 141 Potassium 3.7 Chloride 105 Carbon Dioxide 28.0 Anion Gap 8 BUN 22 H Creatinine 0.89 Estim Creat Clear Calc 68.49 Est GFR (MDRD) Af Amer 83 Est GFR (MDRD) Non-Af 68 BUN/Creatinine Ratio 24.8 H Glucose 141 H Calcium 8.8 Phosphorus Magnesium 2.0 12/20/22 01:07 WBC RBC Hgb Hct MCV MCH MCHC RDW Std Deviation RDW Coeff of Levar Plt Count MPV Immature Gran % (Auto) Neut % (Auto) Lymph % (Auto) [place] % (Auto) Eos % (Auto) Baso % (Auto) Absolute Neuts (auto) Absolute Lymphs (auto) Nucleated RBC % PT INR APTT Sodium Potassium Chloride Carbon Dioxide Anion Gap BUN Creatinine Estim Creat Clear Calc Est GFR (MDRD) Af Amer Est GFR (MDRD) Non-Af BUN/Creatinine Ratio Glucose Calcium Phosphorus 3.9 Magnesium Radiography Diagnostic Testing: Clinical Impression(s) from Imaging Studies Head/Neck CTA 12/20/22 01:29 IMPRESSION: Normal CTA Head and neck with contrast. There is a robust amount of gas within the venous structures. Recommend correlation with possible introduction of a large amount of gas within the venous structures possibly during the contrast by power injector. There is venous gas throughout the visualized facial veins bilateral jugular veins. There is no visualized gas within the venous sinuses. No visualized significant stenosis of the internal carotid arteries. Degenerative change of the cervical spine most significant at C6-C7. Very partially visualized pericardial effusion. Partially visualized atherosclerotic disease of the aorta. 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 Instructions: AFib, ED Paraesthesias Prescriptions: No Action furosemide 20 mg tablet 20 mg PO DAILY bisacodyl [Gentle Laxative (bisacodyl)] 5 mg tablet,delayed release (DR/EC) 5 mg PO ONCE PRN (Reason: Congestion) fluticasone propionate [Flonase Allergy Relief] 50 mcg/actuation spray,suspension 1 spray intranasal DAILY PRN (Reason: allergy symptoms) Rx Instructions: administer into each nostril albuterol sulfate [Ventolin HFA] 18 GM HFA aerosol inhaler 2 puff inhalation Q4H PRN PRN (Reason: Sob &/Or Wheezing) Label Comments: INHALE 2 (TWO) PUFFS EVERY 4 HOURS NEEDED iron, carbonyl [Feosol] 45 MG capsule 45 mg PO QMONTH pantoprazole 40 MG tablet 40 mg PO BID Qty: 60 0RF hydrocodone-acetaminophen [hydrocodone-acetaminophen] 5-325 mg tablet 1 tab PO Q4H PRN PRN (Reason: Pain) 2 Days Qty: 10 0RF Primary Care Provider: Shanika Messer Referrals: Shanika Messer MD [Primary Care Provider] - Activity Restrictions/Additional Instructions: Please continue all of your medications as directed by your doctor. Also please notify your cardiothoracic surgeon about your CT scan today showing air within your bilateral jugular and facial veins. The vascular surgeon I talked to this evening informing that this will resolve spontaneously and it does not require intervention. If you have any further concerns or worsening of symptoms please return to the ER for repeat evaluation Disposition Disposition: Home, Self Care
[2022-12-20 04:14] VITALS: BP 119/49; PULSE 95; RESP 18; O2SAT 99
[2022-12-20] MEDS: Digoxin 250 MCG/ML Ampul 500 MCG IV (04:21)
== END 2022-12-20 04:31 | disposition home or self-care (01) ==
PROVIDERS: Emergency Provider Emergency Medicine; PCP Family Medicine; Visit Provider Emergency Medicine
DX: R20.2 Paresthesia of skin (principal); I48.91 Unspecified atrial fibrillation; Z79.01 Long term (current) use of anticoagulants; I25.10 Atherosclerotic heart disease of native coronary artery without angina pectoris; J45.909 Unspecified asthma, uncomplicated
CPT/HCPCS: 70496; 70498; 80048; 83735; 84100; 85025; 85610; 85730; 96360; 96361; 99283; J7030; Q9967; A4216

== ENCOUNTER 2022-12-29 08:09 | Emergency (ER) | payer OTHER, MEDICAID, SELFPAY ==
[2022-12-29 08:10] VITALS: BP 133/72; PULSE 65; RESP 18; TEMP 36.8; O2SAT 100; BMI 22.4
--- NOTE | 2022-12-29 08:35 | EDS_ITS ---
HPI History of Present Illness Chief Complaint: Overdose Informant: patient Narrative Narrative: Patient recently had open heart surgery, CABG and mitral valve. This was about a month ago in [place]. Subsequently she was found to be in atrial fibrillation, and she was started on amiodarone and Eliquis. This morning, she woke up and ate something for breakfast so that she can take her morning medications, then she fell back asleep and when she woke up she was a little disoriented and took her morning medications again, and then realize she accidentally took her morning medications twice. She presents out of concern for this. She is asymptomatic. The medications she took twice are as follows: Apixaban 5 mg, metoprolol 50 mg, Lasix 20 mg, amiodarone 400 mg. She took the first dose of medications around 6 AM, the second dose around 0730. I evaluated her about 0830. [facility] Medical History Anemia Asthma Atherosclerotic heart disease of [place] coronary artery without angina pectoris Constipation Heart murmur History of left heart catheterization (LHC) (~09/09/22) Non-rheumatic mitral regurgitation Nonrheumatic mitral (valve) prolapse Seasonal allergies Home Medications albuterol sulfate 90 mcg/actuation aerosol inhaler (Ventolin HFA) 2 puff inhalation Q4H PRN PRN Sob &/Or Wheezing 02/05/16 [History Last Taken 11/11/17] pantoprazole 40 mg tablet,delayed release 40 mg PO BID #60 tabs 11/14/17 [Rx Last Taken Unknown] furosemide 20 mg tablet 20 mg PO DAILY 08/14/22 [History Last Taken Unknown] amiodarone 200 mg tablet 400 mg PO DAILY 12/29/22 [History Last Taken Unknown] apixaban 5 mg tablet (Eliquis) 5 mg PO BID 12/29/22 [History Last Taken Unknown] aspirin 81 mg tablet 81 mg PO DAILY 12/29/22 [History Last Taken Unknown] atorvastatin 40 mg tablet 40 mg PO DAILY 12/29/22 [History Last Taken Unknown] ferrous sulfate 325 mg (65 mg iron) tablet (FeroSul) 325 mg PO DAILY 12/29/22 [History Last Taken Unknown] folic acid 1 mg tablet 1 mg PO DAILY 12/29/22 [History Last Taken Unknown] gabapentin 100 mg capsule 200 mg PO BID 12/29/22 [History Last Taken Unknown] magnesium oxide 400 mg PO DAILY 12/29/22 [History Last Taken Unknown] metoprolol tartrate 50 mg tablet 50 mg PO TID 12/29/22 [History Last Taken Unknown] potassium chloride 10 mEq capsule,extended release 10 meq PO DAILY 12/29/22 [History Last Taken Unknown] Allergy/AdvReac Type Severity Reaction Status Date / Time aspirin Allergy Vomiting Verified 12/07/22 17:54 erythromycin base Allergy Vomiting Verified 12/07/22 17:54 [Erythromycin Base] Penicillins Allergy Angioedema Verified 12/07/22 17:54 procaine HCl [From Novocain] Allergy Other Verified 12/07/22 17:54 ibuprofen AdvReac Unknown Vomiting Verified 12/07/22 17:54 Family History Grandmother Arrhythmia Presence of permanent cardiac pacemaker Surgical History (Updated 12/29/22 @ 08:20 by Nydia Gonzalez) History of right oophorectomy Hx of heart bypass surgery Hx of mitral valve repair Social History Smoking Status: Never smoker alcohol intake: never substance use type: does not use caffeine: Yes (occasional) ROS ROS ED Constitutional Constitutional ED: Denies chills or fever(s) Eyes Eyes: Denies change in vision or diplopia ENT ENT ED: Denies rhinorrhea or sore throat Cardiovascular Cardiovascular: Denies chest pain or palpitations Respiratory/Chest Respiratory/Chest: Denies cough or dyspnea Gastrointestinal Gastrointestinal: Denies abdominal pain, diarrhea, nausea or vomiting Genitourinary Genitourinary ED: Denies dysuria or hematuria Musculoskeletal Musculoskeletal: Denies back pain or neck pain Integumentary Denies abscess or rash Neurologic Neurologic: Denies headache(s), paresthesias or weakness Psychiatric Psychiatric: Denies anxiety or suicidal thoughts EXAM Physical Exam Const Vital Signs: 12/29/22 08:10 12/29/22 08:20 12/29/22 10:01 Temperature 98.3 F Temperature Source Temporal Pulse Rate 65 60 Respiratory Rate 18 18 Respiratory Pattern Normal Blood Pressure 133/72 H 104/56 L Blood Pressure Mean 92 72 Pulse Ox 100 98 Oxygen Delivery Method Room Air Room Air Positive well nourished and well developed General Appearance ED: well developed and NAD HEENT Reports moist mucous membranes normocephalic and atraumatic Eyes PERRL and EOMs intact bilaterally Neck full ROM and supple Resp normal respiratory effort and clear to auscultation bilaterally Cardio regular rate, regular rhythm and no murmurs Back/Spine General Back: other FROM Extremity normal to inspection General Extremety ED: Negative for edema, pulses abnormal or tenderness General Extremity: Negative for edema or pulses abnormal Neuro oriented x3, CN's II-XII intact bilaterally and no sensory deficits noted Sensorium / Orientation: awake and alert Motor Exam: strength 5/5 throughout Skin no rashes or lesions noted and no wounds MDM MDM MDM Narrative Medical decision making narrative: At the time of my evaluation the patient's vital signs are normal. Her pulse is in the low 60s, sinus rhythm. Blood pressure 113 systolic on my evaluation, 133/72 in triage. She is asymptomatic. I watched her for about an hour, her vital signs did not change greatly although her HR went down to the mid-50's. We ambulated her and she did well without any symptoms or major alterations in her VS. She is reassured, the doses of these medications are all within the therapeutic range including the Eliquis, given that she is on prophylactic treatment. Since she does not have any symptomatic bradycardia, I have reassured her and she can safely be discharged home. She can take all of her medications as prescribed this evening, however I recommend skipping her afternoon dose of metoprolol (takes tartrate, TID) and I may err on the side of taking metoprolol 25 mg for the evening dose only if her HR is below 70. Discharge Plan Triage Chief Complaint: Overdose ED Provider: Jayjay Burciaga Dx/Rx/DC Orders Clinical Impression: Accidental drug ingestion Instructions: ED Accidental Ingestion ... Prescriptions: No Action furosemide 20 mg tablet 20 mg PO DAILY albuterol sulfate [Ventolin HFA] 18 GM HFA aerosol inhaler 2 puff inhalation Q4H PRN PRN (Reason: Sob &/Or Wheezing) Label Comments: INHALE 2 (TWO) PUFFS EVERY 4 HOURS NEEDED pantoprazole 40 MG tablet 40 mg PO BID Qty: 60 0RF atorvastatin 40 mg tablet 40 mg PO DAILY potassium chloride 10 mEq Capsule, Extended Release 10 meq PO DAILY amiodarone 200 mg tablet 400 mg PO DAILY ferrous sulfate [FeroSul] 325 mg (65 mg iron) Tablet 325 mg PO DAILY metoprolol tartrate 50 mg tablet 50 mg PO TID folic acid 1 mg Tablet 1 mg PO DAILY aspirin 81 mg Tablet 81 mg PO DAILY gabapentin 100 mg capsule 200 mg PO BID Eliquis 5 mg tablet 5 mg PO BID magnesium oxide 400 mg magnesium Tablet 400 mg PO DAILY Primary Care Provider: Shanika Messer Referrals: Shanika Messer MD [Primary Care Provider] - As Needed Activity Restrictions/Additional Instructions: Skip your afternoon dose of metoprolol. You may take your evening medication doses as prescribed/scheduled, but it may be helpful to check your pulse before you do this. If your pulse is less than 70, I would recommend changing the metoprolol to 25 mg; this may be half of a tablet if you are prescribed the 50 mg tablets. Disposition Disposition: Home, Self Care
[2022-12-29 10:01] VITALS: BP 104/56; PULSE 60; RESP 18; O2SAT 98
[2022-12-29 11:13] VITALS: BP 107/53
== END 2022-12-29 11:13 | disposition home or self-care (01) ==
LOC: ED 09:17
PROVIDERS: Emergency Provider Emergency Medicine; PCP Family Medicine; Visit Provider Emergency Medicine
DX: I48.91 Unspecified atrial fibrillation (principal); I25.10 Atherosclerotic heart disease of native coronary artery without angina pectoris; T50.901A Poisoning by unspecified drugs, medicaments and biological substances, accidental (unintentional), initial encounter; J45.909 Unspecified asthma, uncomplicated; Z79.82 Long term (current) use of aspirin; Z95.1 Presence of aortocoronary bypass graft; Z95.2 Presence of prosthetic heart valve
CPT/HCPCS: 99282

== ENCOUNTER → 2023-01-14 | Outpatient (CLI) | payer OTHER, MEDICAID, SELFPAY ==
--- NOTE | 2023-01-14 12:51 | CR.HP_ITS ---
CR - History & Physical - General Arrival date:: 01/14/23 Arrival time:: 12:51 Date of Referral:: 01/07/23 Date of CR Evaluation:: 01/14/23 Referring Physician: Dr. Clifton Meza Primary Diagnosis: CABG, Heart valve repair - History of Present Cardiac Event Onset Date: Enter Onset Date of cardiac illnesses in Comment field below Coronary Artery Bypass Graft:: Yes - 11/28/2022 Heart valve replacement or repair:: Yes - 11/28/2022 - Sleep Disorder Evaluation Hx of Sleep Apnea: No Do you snore loudly (louder than talking or can be heard through closed doors)?: No Do you often feel tired/ fatigued/ sleepy during daytime?: No Has anyone observed you stop breathing during sleep?: No History of Hypertension (for STOP score): No STOP Results: Negative - Medications Home Medications: Ambulatory Orders Medication Instructions Recorded albuterol sulfate 90 mcg/actuation 2 puff inhalation Q4H PRN PRN Sob 02/05/16 aerosol inhaler (Ventolin HFA) &/Or Wheezing pantoprazole 40 mg tablet,delayed 40 mg PO BID #60 tabs 11/14/17 release apixaban 5 mg tablet (Eliquis) 5 mg PO BID 12/29/22 aspirin 81 mg tablet 81 mg PO DAILY 12/29/22 atorvastatin 40 mg tablet 40 mg PO DAILY 12/29/22 ferrous sulfate 325 mg (65 mg 325 mg PO DAILY 12/29/22 iron) tablet (FeroSul) folic acid 1 mg tablet 1 mg PO DAILY 12/29/22 gabapentin 100 mg capsule 200 mg PO BID 12/29/22 magnesium oxide 400 mg PO DAILY 12/29/22 metoprolol tartrate 50 mg tablet 50 mg PO TID 12/29/22 potassium chloride 10 mEq 10 meq PO DAILY 12/29/22 capsule,extended release amiodarone 200 mg tablet 200 mg PO DAILY 01/06/23 furosemide 20 mg tablet 20 mg PO DAILY PRN edema 01/06/23 - Allergies Allergies/Adverse Reactions: Allergies aspirin Allergy (Verified 12/07/22 17:54) Vomiting erythromycin base [Erythromycin Base] Allergy (Verified 12/07/22 17:54) Vomiting Penicillins Allergy (Verified 12/07/22 17:54) Angioedema procaine HCl [From Novocain] Allergy (Verified 12/07/22 17:54) Other ibuprofen Adverse Reaction (Unknown, Verified 12/07/22 17:54) Vomiting Advanced Directives - Advanced Directives Power of Rug Cleaner Helper: No Living Will: No Advance Directives Information Provided: No Advance Directives on File: No Past Medical History - Covid-19 Screening Has a serious heart condition:: Yes - Past Medical Illness Medical History: Past Medical History (Last Updated 01/06/23 @ 09:08 by Radha Morales) Anemia D64.9 Asthma J45.909 Atherosclerotic heart disease of [place] coronary artery without angina pectoris I25.10 Atrial fibrillation I48.91 Constipation K59.00 Heart murmur R01.1 History of left heart catheterization (LHC) Onset Date: ~09/09/22 Z98.890 LEFT HEART ASSESSMENT Left Ventricular Ejection Fraction: Not assessed Normal Left Ventricular End Diastolic Pressure LVEDP: 12 mmHg; RIGHT HEART ASSESSMENT Thermal CO: 5.88 Thermal CI: 3.17 Jose CO: 6.68 Jose CI: 3.6 PW: 12 PA: 43/14 27 RV: 44/7 11 RA: 8/5 5 PVR: 204 SVR: 1128 Aortic Valve Area: >3.50 Aortic Valve Index: 1.89 Aortic Valve Mean Gradient: 13.3733 Mitral Valve Area: 2.35 Mitral Valve index: 1.27 Mitral Valve Mean Gradient: 12.7746 Right Heart pressures - elevated (mild to moderately elevated RVSP) Pulmonary Hypertension Mild - Moderately elevated PASP Intracardiac shunting: None LEFT MAIN: distal: 25 % Stenosis; LEFT ANTERIOR DESCENDING ARTERY: MID LAD: possible intramyocardial bridging segment with 50-75 % Stenosis; CIRCUMFLEX ARTERY: PROX CIRC: Mild luminal irregularities; RIGHT CORONARY ARTERY: Mild luminal irregularities; RECOMMENDATIONS: Surgery consult for coronary revascularization and Surgery consult for valvular disease. per cardiac cath Dr. Meza 09/09/22 Non-rheumatic mitral regurgitation I34.0 Mod-Severe PER echo 05/06/22 Nonrheumatic mitral (valve) prolapse I34.1 Myxomatous; severe MVP per ECHO 05/06/22 Pleural effusion J90 Post surgery Rt Side; thoracentesis 12/03/22 Seasonal allergies J30.2 - Past Surgical History Surgical History: Past Surgical History (Last Updated 01/06/23 @ 08:49 by Radha Morales) History of coronary artery bypass surgery Onset Date: ~11/28/22 Z95.1 CABG x1- [facility] Dr. Pulido @ [facility] 11/28/22 History of right oophorectomy Z90.721 Hx of mitral valve repair Onset Date: ~11/28/22 Z98.890 Repair [address] band Dr. Pulido @ [facility] 11/28/22 Status post patent foramen ovale closure Onset Date: ~11/28/[address] Pulido @ [facility] 11/28/22 Surgical History: - - Right long finger mucoid cyst excision, DIP joint debridement. Oophorectomy. - Family History Summary Family History: Family History (Last Reviewed 09/08/22 @ 08:21 by Kelle Amador) Grandmother Arrhythmia Presence of permanent cardiac pacemaker Social History - Smoking History Smoking Status: Never smoker - Alcohol Use Alcohol Usage: No - Substance Abuse Hx Substance Use: No - Occupation Occupation (List type of work in comments):: Employed Hours worked per day:: 6 Returned to work on:: 02/26/23 - Hobbies, Recreation, Social Activities Hobbies: Reading Recreational Activities: I am able to engage in all my recreational activities Social Environment - Status Marital Status: - Current Living Arrangements Living Environment:: Spouse - Children How many children do you have?: 2 Do any of your children live nearby?: Yes - Safety Do you feel safe in your surroundings?: Yes - Assistance Do you need any assistance at home?: no Review of Systems - Review of Systems Hints: Right click = Denies ([place]). Left click = Reports ([place]) Review of Present Symptoms: Reports: Shortness of Breath with Exertion, Operative Discomfort, Fatigue, Appetite - Special Diet, Sleep - Normal. Denies: Shortness of Breath at Rest, PVD, Angina, Wound Healing, Dizziness/Lightheadedness, Heart Arrhythmia/Irregularities, Appetite - Normal, Sexual Changes - Pain Is Patient Pain Free?: No Pain Location: back Pain Level: 05/18 Risk Factor Assessment - Vital Signs Pulse Ox: 100 - Pulse Pulse Rate: 68 Pulse Rhythm: Regular - Hypertension Blood Pressure Sitting - Left Arm: 120/58 - Diabetes Nutrition Referral for Diabetes: No - Obesity Height: 5 ft 9 in Weight:: 72.575 kg Weight in Pounds: 160.0 lbs Body Mass Index (BMI): 23.6 Nutritional Referral for Obesity: No - Physical Inactivity Physical Inactivity: Reg Exercise 30 min/day - Risk Stratification Risk Guidelines: Lowest Risk: Risk Factor for Smoking, Moderate Risk: Risk Factor for Dyslipidemia, Risk Factor for Diabetes, Risk Factor for Obesity, Risk Factor for Hypertension, Risk Factor for Sedentary Lifestyle, Risk Factor for Depression - Family History Family History: Family History (Last Reviewed 09/08/22 @ 08:21 by Kelle Amador) Grandmother Arrhythmia Presence of permanent cardiac pacemaker Motivation - Motivation to Participate On a scale of 1 to 10, how prepared are you to commit to attending program?: 10 What do you see as barriers to successfully being able to complete the program?: no What do you see as the benefits of succesfully completing the program? In other words, what do you hope to get out of participating in the program?: more energy, better health Are there issues you are dealing with that will interfere with completing the program?: no Do you have a spouse or signficant other, family or friends who will help support you to complete the program?: yes
[2023-01-14 13:31] VITALS: BP 120/58; PULSE 68; O2SAT 100; BMI 23.6
--- NOTE | 2023-01-14 13:31 | PCM.CR.ITP ---
Diagnosis - General Information Admitting Diagnosis: CABG, Heart valve repair Personal Learning Style:: Audio/Visual Stage of change r/t lifestyle modifications:: Contemplation Gave educational material for:: Treating Heart Disease, Emotions & Heart Disease, Stress Management & Relaxation, Sleep Disorders & Heart Disease, How The Heart Works, What it means to have Heart Disease, How Coronary Artery Disease is Diagnosed, Heart Procedures, What Heart Medications Do, Risk Factors & Modifications, Living an Active Life, Nutrition - Education/Goals Cardiac Rehabilitation Goals: 1. Maintain the individual as the primary focus of care. 2. To improve the patient's quality of life. 3. Identification of cardiac risk factors and provide cardiac risk factor management. 4. Enhance the psychosocial status of the patient. 5. Reconditioning enough to allow the patient to resume customary activities. 6. Control symptoms of cardiac disease Personal Goals: Initial Assessment: Improve management of stress and emotions, Participate in home exercise program, Improve knowledge of cardiac disease, Improve muscle strength and endurance Scale for measuring improvement of personal goals: Enter appropriate number in Comments. 2 = Unchanged. 3 = Slightly Better. 4 = Moderate Improvement. 5 = Met my Goal - Diagnosis & Disease Process Outcomes/Goals: Pt IDs own risk factors & lifestyle modifications by Session 10, Verbalizes symptoms of angina & response by session 3., Pt independently manages, Other Additional Outcomes/Goals: Plan/Interventions: Assist Pt to ID & engage in lifestyle modification to reduce CVD risk, Instruct on individual risk factors, Review symptoms of angina & emergency actions, Review secondary diagnosis & identify educational needs., Other see comment 30 day Reassessments:: Not Met 30 day Reassessments:: Not Met 30 day Reassessments:: Not Met Final Reassessments:: Not Met - Safety Referral to Physical Therapy: No Referral to [facility] Case Management: No Fall Risk Assessed:: Yes Exercise - Initial Assessment - Visit Date of Eval: 01/14/23 - initial eval Mets: Pre-: >3 METS for 30 minutes by discharge, >5 METS for 30 minutes by discharge, >7 METS for 30 minutes by discharge, Unable to meet goal due to: (see comment below) - Physician Prescribed Exercise Modalities: Treadmill, Airdyne, NuStep, SciFit, Lateral Cheval Frequency: 3x/week for 12 weeks [36 sessions] Intensity: 60-80% of age predicted maximum heart rate reserve Current METSs:: 3 Target Heart Rate:: 103-119 Resting Blood Pressure: 120/58 EKG Type: NSR - Outcomes & Goals Goals:: Verbalizes understanding of THR, RPE & goal METS by session 6, Documents in home exercise log/reports 30 min aerobic 5 day/wk by DC, Demonstrates accurate pulse taking by DC, Other additional outcome/goals: see below - Intervention & Plan Exercise Program Goals: Instruct on personal THR & RPE, Instruct on MET level & personal MET goal, Show patient to take own pulse /validate performance until accurate, Instruct on home exercise, Other additional plan/int - Physical Activity Home Exercise Physical Activity - Home Exercise: Safe Exercise, Warm-up, Self-monitoring, Cool-Down, Home Exercise > 30 min Daily, Sitting Time <3 hours/daily - Outcomes & Goals Outcomes/Goals: Demonstrates correct Warm-up/exercise Cool-Down (S3) if = 2.5 METs, Verbalizes symptoms of exercise intolerance by Session 3 (S3), Demonstrate safe equipment use (S3) & follows exercise prescrition (6), Other: See below - Intervention & Plan Plan/Intervention: Instruct warm-up & cool-down if exercising at > 2 METs, Instruct on symptoms of exercise intolerance & actions to take, Instruct & monitor on saf, Assess intial functional capacity & safety risk, Other See below Nutrition - Initial Assessment - Program Goals Nutrition Program Goals: LDL <100 optimal. 100 - 129 Near optimal. 130 - 159 Borderline High. 160 - 189 High. Total Cholesterol <200 desirable. 200 - 239 Borderline High. >/= 240 High. HDL < 40 Low >/=60 High. Triglycerides <150 desirable. <199 optimal. VlDL 5 - 40. HgbA1C <7%. BMI <25 Patient has diagnosis of Hyperlipidemia (ICD E78)?: No - Visit Date of Assessment:: 01/14/23 - initial eval - Cholesterol/Lipids (Other Core Measures) Determine presence & major risk factors that modify LDL goal: Family history of premature CHD in Male < 55 years: female <65 yearsFa, Age men > 45 years; women >/= 55 years Outcomes/Goals: Pt IDs own risk factors & lifestyle modifications by Session 10, Verbalizes symptoms of angina & response by session 3., Pt independently manages, Other Additional Outcomes/Goals: Intervention/Plan: Advocate for lipid panel cholesterol medication if applicable, Instruct on personal lipid levels & lipid goals/NCEP guidelines, Instruct on cholesterol, Other additional plan/int - Diabetes (Other Core Measures) Diabetes Type: Not Applicable - Weight Mgt (Other Care) Height: 5 ft 9 in Weight:: 72.575 kg BMI: 23.6 Outcomes/Goals: Pt sets, maintains & shows weight loss goal & trend during rehab, Other additional outcomes/goals Intervention/Plan: Instruct on ideal BMI & set weight loss goal w/patient, Assist pt to ID & incorporate diet changes for weight loss by S9, Refer to Structured Weight Loss program as appropriate, Encourage goal of using 250-300dcal per session for weight loss, Other additional plan/interventions - Healthy Eating Habits Will attend diet classes:: Yes Outcomes/Goals:: Consume diet rich in vegs,fruits,whole grain/high fiber,fish,lean meat, Limit sat/trans fats,cholesterol & added salts & sugars, Other additional outcome/goals: Intervention/Plan:: Assess current eating habits, Other Additional plan/interventions - Education Gave educational materials for:: Signs & symptoms of hypoglycemia, Signs & symptoms of hyperglycemia, Relate diabetes to coronary artery disease, Healthy eating Nutrition - 30-Day Assessment Nutrition - 60-Day Assessment Nutrition - 90-Day Assessment Nutrition - Final Assessment Core - Initial Assessment - Visit Date of Eval: 01/14/23 - initial eval - Medication Compliance Preventative Medication(s):: Aspirin H/O mental health issues: depression, anxiety, or addiction?: No Doesn?t believe in the benefits of treatment?: No Believes medications are unnecessary or harmful?: No Has a concern about medication side effects?: No Expresses concern over the cost of medications?: No Outcomes/Goals: Verbalizes medications,desired effect & common side effects @ DC, Pt self-reports following medication regimen, Keeps card in wallet w/medications listed by DC, Other additional outcome/goals: Interventions/plans: Instruct on medication effects & side effects, Review medication list w/patient every two weeks, Instruct importance of taking meds as ordered & assist problem solving, Other additional - Tobacco Use Tobacco Use: Non-smoker - Hypertension Hypertension Diagnosis:: Not Applicable Resting Blood Pressure:: 120/58 [place] [employer] Hypertension Guidelines: [place] [employer] Hypertension Guidelines. Normal BP Less than 120/80. Elevated BP 120/80. Hypertension Stage 1: BP 130-139/80-89. Hypertesnion Stage 2: BP 140 or higher/90 or higher. Hypertension Crisis: BP higher than 180/120 Outcomes/Goals: Able to verbalize/achieve optimal blood pressure <130/80, Incorporates diet changes & exercise for blood pressure control by DC, Other additional outcomes/goals Interventions/plan: Instruct on optimal blood pressure, hypertension & medications, Instruct on effects of sodium, alcohol, stress, exercise &hypertension, Other additional plan/interventions - Tobacco Cessation Referral Smoking Cessation Referral:: No Individual Education/Counseling:: No Education Schedule Given:: Yes Core - 30-Day Assessment Core - 60-Day Assessment Core - 90 Day Assessment Core - Final Assessment Psychosocial - Initial Assess - VIsit Date of Eval: 01/14/23 - initial eval History of previous Mental disease:: No - Outcomes/Goals: See list Psychosocial Outcomes/Goals:: ID's personal stressors & 2 strategies to manage stress by discharge, Other Additional outcome/goals: - Intervention/Plan: See List Interventions/Plan:: Assess stressors,coping strategies & signs of derpression on admission, Instruct/assist pt to develop coping & personal stress Mgt strategies, Refer to Behavioral Health if appropriate, Refer to Physician if appropriate, Instruct patient to recognize signs & symptoms of depression, Instruct patient to recog, Other additional plan/intervention Psychosocial - 30-Day Assess Psychosocial - 60-Day Assess Psychosocial - 90-Day Assess Psychosocial - Final Assessmen Patient Health Questionnaire Initial Assessment 1. Little interest or pleasure in doing things: Not at all 2. Feeling down, depressed, or hopeless: Not at all 3. Trouble falling or staying asleep, or sleeping too much: More than half the days 4. Feeling tired or having little energy: Several days 5. Poor appetite or overeating: Not at all 6. Feeling bad about yourself -- or that you are a failure or have let yourself or your family down: Not at all 7. Trouble concentrating on things, such as reading the newspaper or watching television: Not at all 8. Moving or speaking so slowly that other people could have noticed. Or the opposite - being so fidgety or restless that you have been moving around a lot more than usual: Not at all 9. Thoughts that you would be better off , or of hurting yourself in some way: Not at all How difficult have these problems made it for you to do your work, take care of things at home, or get along with other people?: Somewhat difficult Total Score: 3 MAGALY-Q SV Test - Statements CAD is a disease of the arteries in the heart: False Examples of risk factors for heart disease: True Angina is chest pain or discomfort: True The benefits of resistance training include: True Eating more meat and dairy products: False Anti-platelet medications such as aspirin are important: True The only effective way to manage stress: False An exercise warm-up slowly increases heart rate: True Prepared, processed foods usually have high sodium: True Depression is common after a heart attack: True The statin medications lower cholesterol: True To control blood pressure, lower the amount of sodium: True If someone gets chest discomfort during walking: False Transfats are partially hydrogenated vegetable oils: True Sleep apnea that is not treated increases the risk: False To control cholesterol, one should become a vegetarian: False Someone knows if he/she is exercising at the right level: True Diabetes cannot be prevented with exercise & health eating: False Stress is a large risk for heart attack: True A diet that can help lower blood pressure is rich in: True - Total Score Total Correct Responses: 20 Self-Efficacy Initial Assessment We would like to know how confident you are in doing certain activities. Please select your confidence level for:: Select your confidence level for the following using the scale 1-10 where 1 is not at all confident and 10 is totally confident. Your score is the average of all 6 responses. Fatigue: How confident are you that you can keep the fatigue caused by your disease from interfering with the things you want to do? Select Number: 9 Physical Discomfort or Pain: How confident are you that you can keep the physical discomfort or pain of your disease from interfering with the things you want to do? Select Number: 8 Emotional Distress: How confident are you that you can keep the emotional distress caused by your disease from interfering with the things you want to do? Select Number: 10 Other Symptoms or Health Problems: How confident are you that you can keep other symptoms or health problems from interfering with the things you want to do? Select Number: 9 Different Tasks and Activities: How confident are you that you can do the different tasks and activities needed to manage your health condition so as to reduce your need to see a doctor? Select Number: 10 Medication: How confident are you that you can do things other than just taking medication to reduce how much your illness affects your everyday life? Select Number: 10 Total Score:: 9 Nutrition Survey - Nutrition Survey Initial Have you lost >10 lbs over the past 2 months without trying?: Yes Are you following a special diet at home for diabetes, low fat, or low salt?: Yes Are you interested in meeting with a dietitian for help understanding your diet?: No Do you eat less than 3 meals a day?: No Do you eat fatty meats (ramirez, sausage, ribs, etc), fried foods, desserts, large amounts of salad dressings, margarine, butter, or cheese most days?: No Do you have food allergies? [Enter types in comment field]: No Do you eat in restaurants more than 3 times a week?: No Do you season food with salt, seasoning salt, or garlic salt?: No Do you used canned, boxed, frozen meals, or soups, seasoning packets?: Yes Total Score:: 3
[2023-01-14 13:47] VITALS: BP 120/58; BMI 23.6
== END | disposition home or self-care (01) ==
LOC: CR 12:43
PROVIDERS: PCP Family Medicine; Visit Provider Internal Medicine Cardiovascular Disease
DX: Z95.1 Presence of aortocoronary bypass graft (principal)

== ENCOUNTER 2023-01-30 14:30 | Outpatient (RCR) | payer OTHER, MEDICAID, SELFPAY ==
[2023-01-14 13:47] VITALS: BMI 23.6
== END 2023-02-06 23:59 ==
LOC: CR 14:30
PROVIDERS: PCP Family Medicine; Referring Provider Internal Medicine Cardiovascular Disease; Visit Provider Internal Medicine Cardiovascular Disease
DX: I25.10 Atherosclerotic heart disease of native coronary artery without angina pectoris (principal); Z95.1 Presence of aortocoronary bypass graft; Z87.74 Personal history of (corrected) congenital malformations of heart and circulatory system; Z98.890 Other specified postprocedural states
CPT/HCPCS: 93798

== ENCOUNTER 2023-03-06 14:30 | Outpatient (RCR) | payer OTHER, MEDICAID, SELFPAY ==
[2023-01-14 13:47] VITALS: BMI 23.6
--- NOTE | 2023-02-13 11:35 | PCM.CR.ITP ---
Diagnosis Exercise - 30-day Assessment - Visit Date of Eval: 02/13/23 Session #:: 8 - Physician Prescribed Exercise Modalities: Treadmill, NuStep, SciFit Frequency: 3x/week for 12 weeks [36 sessions] Intensity: 60-80% of age predicted maximum heart rate reserve Duration: 30 - 45 minutes Current METSs:: 4.0 Current RPE:: 12-13 Maximum Excercise HR:: 115 Resting Blood Pressure: 128/68 Maximum Exercise Blood Pressure: 138/72 EKG Type: NSR to Sinus tach with rare PAC - Outcomes & Goals Goals:: Verbalizes understanding of THR, RPE & goal METS by session 6, Documents in home exercise log/reports 30 min aerobic 5 day/wk by DC, Demonstrates accurate pulse taking by DC - Intervention & Plan Exercise Program Goals: Instruct on personal THR & RPE, Instruct on MET level & personal MET goal, Show patient to take own pulse /validate performance until accurate, Instruct on home exercise - 30-day Reassessments 30 day Reassessments:: Progressing Nutrition - Initial Assessment Nutrition - 30-Day Assessment - Program Goals Nutrition Program Goals: LDL <100 optimal. 100 - 129 Near optimal. 130 - 159 Borderline High. 160 - 189 High. Total Cholesterol <200 desirable. 200 - 239 Borderline High. >/= 240 High. HDL < 40 Low >/=60 High. Triglycerides <150 desirable. <199 optimal. VlDL 5 - 40. HgbA1C <7%. BMI <25 Patient has diagnosis of Hyperlipidemia (ICD E78)?: Yes - Visit Date of Assessment:: 02/13/23 Session #:: 8 - Cholesterol/Lipids (Other Core Measures) Determine presence & major risk factors that modify LDL goal: Hypertension or hypertensive medication, Age men > 45 years; women >/= 55 years Outcomes/Goals: Pt IDs own risk factors & lifestyle modifications by Session 10, Verbalizes symptoms of angina & response by session 3., Pt independently manages Intervention/Plan: Instruct on personal lipid levels & lipid goals/NCEP guidelines, Instruct on cholesterol Referral to dietitian:: Yes 30-day Reassessments:: Progressing - Weight Mgt (Other Care) Not Applicable: Yes Height: 5 ft 8 in Weight:: 153 lb 8 oz BMI: 23.3 Diagnosis Overweight/Obesity BMI> 30% ICD-10 E66: No Diagnosis High BMI/Morbid Obesity BMI> 35% ICD-10 Z68: No Outcomes/Goals: Pt sets, maintains & shows weight loss goal & trend during rehab Intervention/Plan: Instruct on ideal BMI & set weight loss goal w/patient - Healthy Eating Habits Will attend diet classes:: Yes Outcomes/Goals:: Consume diet rich in vegs,fruits,whole grain/high fiber,fish,lean meat, Limit sat/trans fats,cholesterol & added salts & sugars Intervention/Plan:: Assess current eating habits 30-day Reassessments:: Progressing - Education Gave educational materials for:: Healthy eating Nutrition - 60-Day Assessment Nutrition - 90-Day Assessment Nutrition - Final Assessment Core - Initial Assessment Core - 30-Day Assessment - Visit Date of Eval: 02/13/23 Session #:: 8 - Medication Compliance Preventative Medication(s):: Aspirin H/O mental health issues: depression, anxiety, or addiction?: No Doesn?t believe in the benefits of treatment?: No Believes medications are unnecessary or harmful?: No Has a concern about medication side effects?: No Expresses concern over the cost of medications?: No Outcomes/Goals: Verbalizes medications,desired effect & common side effects @ DC, Pt self-reports following medication regimen, Keeps card in wallet w/medications listed by DC Interventions/plans: Instruct on medication effects & side effects, Review medication list w/patient every two weeks, Instruct importance of taking meds as ordered & assist problem solving 30-day Reassessments:: Progressing - Tobacco Use Tobacco Use: Non-smoker - Hypertension Hypertension Diagnosis:: Hypertension ICD-10 I10 Resting Blood Pressure:: 128/68 [place] [employer] Hypertension Guidelines: [place] [employer] Hypertension Guidelines. Normal BP Less than 120/80. Elevated BP 120/80. Hypertension Stage 1: BP 130-139/80-89. Hypertesnion Stage 2: BP 140 or higher/90 or higher. Hypertension Crisis: BP higher than 180/120 Peak Exercise Blood Pressure:: 138/72 Outcomes/Goals: Able to verbalize/achieve optimal blood pressure <130/80, Incorporates diet changes & exercise for blood pressure control by DC Interventions/plan: Instruct on optimal blood pressure, hypertension & medications, Instruct on effects of sodium, alcohol, stress, exercise &hypertension 30 day Reassessments:: Progressing - Tobacco Cessation Referral Smoking Cessation Referral:: No Individual Education/Counseling:: No Education Schedule Given:: Yes Core - 60-Day Assessment Core - 90 Day Assessment Core - Final Assessment Psychosocial - Initial Assess Psychosocial - 30-Day Assess - VIsit Date of Eval: 02/13/23 Session #:: 8 Not Applicable: Yes History of previous Mental disease:: No - Psychosocial Test Tool Used:: PHQ-9 Questionnaire phq-9 Severity: Severity. 1-4 Minimal Depression. 5-9 Mild Depression. 10-14 Moderate Depression. 15-19 Moderately Sever Depression. 20-27 Severe Depression. Rule: - Referral to Behavioral Health PS - Interventions: Yes Attend Stress Management Classes, No Referral to Behavioral Health if PHQ-9 score >9:, No Referral to [facility], No Referral to Physician if PHQ-9 if score is 5-9: - Outcomes/Goals: See list Psychosocial Outcomes/Goals:: ID's personal stressors & 2 strategies to manage stress by discharge - Intervention/Plan: See List Interventions/Plan:: Assess stressors,coping strategies & signs of derpression on admission, Instruct/assist pt to develop coping & personal stress Mgt strategies, Instruct patient to recognize signs & symptoms of depression, Instruct patient to recog - 30-day Reassessments: 30 day Reassessments:: Progressing Psychosocial - 60-Day Assess Psychosocial - 90-Day Assess Psychosocial - Final Assessmen Patient Health Questionnaire 30-Day Re-eval Assessment 1. Little interest or pleasure in doing things: Not at all 2. Feeling down, depressed, or hopeless: Not at all 3. Trouble falling or staying asleep, or sleeping too much: Several days 4. Feeling tired or having little energy: Several days 5. Poor appetite or overeating: Not at all 6. Feeling bad about yourself -- or that you are a failure or have let yourself or your family down: Not at all 7. Trouble concentrating on things, such as reading the newspaper or watching television: Not at all 8. Moving or speaking so slowly that other people could have noticed. Or the opposite - being so fidgety or restless that you have been moving around a lot more than usual: Not at all 9. Thoughts that you would be better off , or of hurting yourself in some way: Not at all How difficult have these problems made it for you to do your work, take care of things at home, or get along with other people?: Not difficult at all Total Score: 2 Self-Efficacy 30-Day Re-eval Assessment We would like to know how confident you are in doing certain activities. Please select your confidence level for:: Select your confidence level for the following using the scale 1-10 where 1 is not at all confident and 10 is totally confident. Your score is the average of all 6 responses. Fatigue: How confident are you that you can keep the fatigue caused by your disease from interfering with the things you want to do? Select Number: 9 Physical Discomfort or Pain: How confident are you that you can keep the physical discomfort or pain of your disease from interfering with the things you want to do? Select Number: 9 Emotional Distress: How confident are you that you can keep the emotional distress caused by your disease from interfering with the things you want to do? Select Number: 10 Other Symptoms or Health Problems: How confident are you that you can keep other symptoms or health problems from interfering with the things you want to do? Select Number: 9 Different Tasks and Activities: How confident are you that you can do the different tasks and activities needed to manage your health condition so as to reduce your need to see a doctor? Select Number: 10 Medication: How confident are you that you can do things other than just taking medication to reduce how much your illness affects your everyday life? Select Number: 10 Total Score:: 9 Nutrition Survey
[2023-02-13 11:41] VITALS: BP 128/68; BP 138/72; BMI 23.3
== END 2023-03-08 23:59 ==
LOC: CR 14:30
PROVIDERS: PCP Family Medicine; Referring Provider Internal Medicine Cardiovascular Disease; Visit Provider Internal Medicine Cardiovascular Disease
DX: I25.10 Atherosclerotic heart disease of native coronary artery without angina pectoris (principal); Z95.1 Presence of aortocoronary bypass graft; Z87.74 Personal history of (corrected) congenital malformations of heart and circulatory system; Z98.890 Other specified postprocedural states
CPT/HCPCS: 93798; 97802

== ENCOUNTER → 2023-03-13 | Outpatient (CLI) | payer OTHER, MEDICAID, SELFPAY ==
[2023-02-13 11:41] VITALS: BMI 23.3
--- NOTE | 2023-03-13 14:39 | VDLE_ITS ---
Reason For Study: swelling LLE RIGHT LEFT CFV is compressible, spontaneous, phasic, GSV is normal. competent and demonstrates normal CFV is compressible, spontaneous, phasic, augmentation. competent, and demonstrates normal Procedure augmentation. This is a venous duplex using B-mode, color FV is compressible, spontaneous, phasic, flow and spectral Doppler. competent and demonstrates normal Exam performed in department. augmentation. A preliminary report was called and/or faxed POP V is compressible, spontaneous, phasic, to Dr. Messer @ 3pm @ [phone]. competent and demonstrates normal augmentation. T/P Trunk is compressible. PTV is compressible. LT PerV is compressible. VL/Venous Duplex US, Unilateral Interpretation Summary Deep veins of the left lower extremity are patent and compressible segmentally. There is no evidence of left lower extremity deep vein thrombosis. The left great saphenous vein keisha ears patent and compressible segmentally. Ordering Physician: Shanika Messer Referring Physician: Shanika Messer Performed By: Dimple Avila, JUVENAL, RVT
== END | disposition home or self-care (01) ==
LOC: CVS 14:38
PROVIDERS: PCP Family Medicine; Referring Provider Family Medicine; Visit Provider Family Medicine
DX: M79.89 Other specified soft tissue disorders (principal)
CPT/HCPCS: 93971

== ENCOUNTER 2023-03-29 12:41 | Emergency (ER) | payer OTHER, MEDICAID, SELFPAY ==
[2023-03-16 09:49] VITALS: BMI 23.6
[2023-03-29 12:42] VITALS: BP 133/67; PULSE 80; RESP 18; TEMP 36.4; O2SAT 97; BMI 23.6
--- NOTE | 2023-03-29 13:39 | ED.VIS.DENTA ---
HPI History of Present Illness Chief Complaint: Dental Narrative Narrative: 63-year-old female presenting with dental pain. It is the right upper and lower teeth. She states has had a couple of root canals. She states he started having pain yesterday and tried to take a Tylenol with codeine but it did not help. Patient concerned her teeth are infected. She has not noted any drainage or swelling. No fevers or chills. No difficulty swallowing or breathing. She is not able to contact her dentist because it is the weekend. [facility] Medical History Anemia Asthma Atherosclerotic heart disease of [place] coronary artery without angina pectoris Atrial fibrillation Constipation Heart murmur History of left heart catheterization (LHC) (~09/09/22) Non-rheumatic mitral regurgitation Nonrheumatic mitral (valve) prolapse Pleural effusion Seasonal allergies Home Medications albuterol sulfate 90 mcg/actuation aerosol inhaler (Ventolin HFA) 2 puff inhalation Q4H PRN PRN Sob &/Or Wheezing 02/05/16 [History Last Taken 11/11/17] pantoprazole 40 mg tablet,delayed release 40 mg PO BID #60 tabs 11/14/17 [Rx Last Taken Unknown] aspirin 81 mg tablet 81 mg PO DAILY 12/29/22 [History Last Taken Unknown] atorvastatin 40 mg tablet 40 mg PO DAILY #90 tabs 01/23/23 [Rx Last Taken Unknown] metoprolol tartrate 50 mg tablet 50 mg PO BID #180 tabs 01/23/23 [Rx Last Taken Unknown] Stool Softener 03/29/23 [History Last Taken Unknown] clindamycin HCl 150 mg capsule 450 mg PO TID 10 days #90 caps 03/29/23 [Rx Last Taken Unknown] furosemide 20 mg tablet 20 mg PO DAILY 03/29/23 [History Last Taken Unknown] lidocaine HCl 2 % mucosal solution 1 applic mucous membrane TID PRN pain #100 mL 03/29/23 [Rx Last Taken Unknown] Allergy/AdvReac Type Severity Reaction Status Date / Time aspirin Allergy Vomiting Verified 03/29/23 12:42 erythromycin base Allergy Vomiting Verified 03/29/23 12:42 [Erythromycin Base] Penicillins Allergy Angioedema Verified 03/29/23 12:42 procaine HCl [From Novocain] Allergy Other Verified 03/29/23 12:42 ibuprofen AdvReac Unknown Vomiting Verified 03/29/23 12:42 Family History Grandmother Arrhythmia Presence of permanent cardiac pacemaker Surgical History History of coronary artery bypass surgery (~11/28/22) History of right oophorectomy Hx of mitral valve repair (~11/28/22) Status post patent foramen ovale closure (~11/28/22) Social History Smoking Status: Never smoker alcohol intake: never substance use type: does not use caffeine: Yes (occasional) ROS ROS ED Constitutional Constitutional ED: Denies chills, fever(s) or sweats Eyes Eyes: Denies blurry vision or change in vision ENT ENT ED: Reports other Details: Dental pain ; Denies ear pain or sore throat Cardiovascular Cardiovascular: Denies chest pain, palpitations or racing heartbeat Respiratory/Chest Respiratory/Chest: Denies cough, dyspnea or sputum Gastrointestinal Gastrointestinal: Denies abdominal pain, constipation, diarrhea, nausea or vomiting Genitourinary Genitourinary ED: Denies dysuria, hematuria or urinary frequency Musculoskeletal Musculoskeletal: Denies arthralgias, myalgias or neck pain Integumentary Denies abscess, Abrasions or rash Neurologic Neurologic: Denies headache(s), paresthesias or weakness Psychiatric Psychiatric: Denies anxiety, depression, suicidal ideation or suicidal thoughts Endocrine Endocrinology: Denies polydipsia or polyuria EXAM Physical Exam Const Vital Signs: 03/29/23 12:42 Temperature 97.6 F L Temperature Source Temporal Pulse Rate 80 Respiratory Rate 18 Blood Pressure 133/67 H Blood Pressure Mean 89 Pulse Ox 97 Oxygen Delivery Method Room Air Positive well nourished HEENT HEENT Narrative: Diffuse pain on the right upper and lower teeth without noted edema, erythema, drainage. But does not appear to be dental caries. Mouth ED: Yes oral and palatal mucosa normal, Yes lips normal, Yes tongue normal and Yes salivary gland normal Mouth: oral and palatal mucosa normal, lips normal, tongue normal and salivary gland normal Throat: posterior oropharynx normal Chest Wall inspection of chest normal Resp normal respiratory effort and no retractions Cardio regular rate and regular rhythm Neuro oriented x3 and CN's II-XII intact bilaterally Sensorium / Orientation: alert Psych mental status grossly normal Skin no rashes or lesions noted MDM MDM MDM Narrative Medical decision making narrative: 62-year-old female presenting with dental pain and she is concern for infection. Clinically there is no evidence of an infection and she has not had any systemic signs or symptoms. She states that since he took a Tylenol with codeine and not did not work she thinks it is an infection. Since he had recent surgery and complaining of worsening pain I will put her on clindamycin because she is penicillin allergic. She does not want any narcotic pain medication at home. I gave her some viscous lidocaine to swish and spit if she need something to help control her pain. Otherwise I recommended Tylenol because she cannot take NSAIDs Impression: 1. Dental pain Discharge Plan Triage Chief Complaint: Dental ED Provider: Pete Chicas Dx/Rx/DC Orders Instructions: ED Dental Pain Prescriptions: New clindamycin HCl 150 mg capsule 450 mg PO TID 10 Days Qty: 90 0RF lidocaine HCl 2 % solution 1 applic mucous membrane TID PRN (Reason: pain) Qty: 100 0RF No Action albuterol sulfate [Ventolin HFA] 18 GM HFA aerosol inhaler 2 puff inhalation Q4H PRN PRN (Reason: Sob &/Or Wheezing) Label Comments: INHALE 2 (TWO) PUFFS EVERY 4 HOURS NEEDED pantoprazole 40 MG tablet 40 mg PO BID Qty: 60 0RF aspirin 81 mg Tablet 81 mg PO DAILY furosemide 20 mg tablet 20 mg PO DAILY Label Comments: TAKE 1 TABLET BY MOUTH EVERY DAY Stool Softener atorvastatin 40 mg tablet 40 mg PO DAILY Qty: 90 3RF metoprolol tartrate 50 mg tablet 50 mg PO BID Qty: 180 3RF Primary Care Provider: Shanika Messer Referrals: Shanika Messer MD [Primary Care Provider] - Disposition Disposition: Home, Self Care
[2023-03-29] MEDS: Clindamycin HCl 150 MG Capsule 450 MG PO (14:29)
== END 2023-03-29 14:49 | disposition home or self-care (01) ==
PROVIDERS: Emergency Provider Student in an Organized Health Care Education/Training Program; PCP Family Medicine; Visit Provider Student in an Organized Health Care Education/Training Program
DX: K08.89 Other specified disorders of teeth and supporting structures (principal); I25.10 Atherosclerotic heart disease of native coronary artery without angina pectoris; J45.909 Unspecified asthma, uncomplicated; Z79.899 Other long term (current) drug therapy; Z79.82 Long term (current) use of aspirin; Z95.2 Presence of prosthetic heart valve
CPT/HCPCS: 99283

== ENCOUNTER 2023-04-08 14:30 | Outpatient (RCR) | payer OTHER, MEDICAID, SELFPAY ==
[2023-02-13 11:41] VITALS: BMI 23.3
[2023-03-09 00:43] VITALS: BP 128/68; BP 138/72
--- NOTE | 2023-03-16 09:38 | CR.ITP_ITS ---
Diagnosis Exercise - 60-day Assessment - Visit Date of Eval: 03/16/23 Session #:: 21 - Physician Prescribed Exercise Modalities: Treadmill, NuStep, SciFit Frequency: 3x/week for 12 weeks [36 sessions] Intensity: 60-80% of age predicted maximum heart rate reserve Current METSs:: 5.5 Target Heart Rate:: 117-133 Current RPE:: 12-13 Maximum Excercise HR:: 129 Resting Blood Pressure: 118/62 Maximum Exercise Blood Pressure: 124/66 EKG Type: NSR to ST with rare pac noted - Outcomes & Goals Goals:: Verbalizes understanding of THR, RPE & goal METS by session 6, Documents in home exercise log/reports 30 min aerobic 5 day/wk by DC, Demonstrates accurate pulse taking by DC, Other additional outcome/goals: see below - Intervention & Plan Exercise Program Goals: Instruct on personal THR & RPE, Instruct on MET level & personal MET goal, Show patient to take own pulse /validate performance until accurate, Instruct on home exercise, Other additional plan/int - 30-day Reassessments 30 day Reassessments:: Progressing - reviewed pulse taking - Physical Activity Home Exercise Physical Activity - Home Exercise: Safe Exercise, Warm-up, Self-monitoring, Cool-Down, Home Exercise > 30 min Daily, Sitting Time <3 hours/daily - Outcomes & Goals Outcomes/Goals: Demonstrates correct Warm-up/exercise Cool-Down (S3) if = 2.5 METs, Verbalizes symptoms of exercise intolerance by Session 3 (S3), Demonstrate safe equipment use (S3) & follows exercise prescrition (6), Other: See below - Intervention & Plan Plan/Intervention: Instruct warm-up & cool-down if exercising at > 2 METs, I nstruct on symptoms of exercise intolerance & actions to take, Instruct & monitor on saf, Assess intial functional capacity & safety risk, Other See below - 30-day Reassessments 30 day Reassessments:: Progressing - cool down encouraged Nutrition - Initial Assessment Nutrition - 30-Day Assessment Nutrition - 60-Day Assessment - Program Goals Nutrition Program Goals: LDL <100 optimal. 100 - 129 Near optimal. 130 - 159 Borderline High. 160 - 189 High. Total Cholesterol <200 desirable. 200 - 239 Borderline High. >/= 240 High. HDL < 40 Low >/=60 High. Triglycerides <150 desirable. <199 optimal. VlDL 5 - 40. HgbA1C <7%. BMI <25 Patient has diagnosis of Hyperlipidemia (ICD E78)?: Yes - Visit Date of Assessment:: 03/16/23 Session #:: 21 - Cholesterol/Lipids (Other Core Measures) Determine presence & major risk factors that modify LDL goal: Hypertension or hypertensive medication, Low HDL cholesterol <40 mg/dL*, Family history of premature CHD in Male < 55 years: female <65 yearsFa, Age men > 45 years; women >/= 55 years Outcomes/Goals: Pt IDs own risk factors & lifestyle modifications by Session 10, Verbalizes symptoms of angina & response by session 3., Pt independently manages, Other Additional Outcomes/Goals: Intervention/Plan: Advocate for lipid panel cholesterol medication if applicable, Instruct on personal lipid levels & lipid goals/NCEP guidelines, Instruct on cholesterol, Other additional plan/int Referral to dietitian:: No - pt has met with dietary 30-day Reassessments:: Progressing - pt has met with dietary - Weight Mgt (Other Care) Height: 5 ft 8 in Weight:: 70.307 kg BMI: 23.6 Diagnosis Overweight/Obesity BMI> 30% ICD-10 E66: No Diagnosis High BMI/Morbid Obesity BMI> 35% ICD-10 Z68: No Outcomes/Goals: Pt sets, maintains & shows weight loss goal & trend during rehab, Other additional outcomes/goals Intervention/Plan: Instruct on ideal BMI & set weight loss goal w/patient, Assist pt to ID & incorporate diet changes for weight loss by S9, Refer to Structured Weight Loss program as appropriate, Encourage goal of using 250- 300dcal per session for weight loss, Other additional plan/interventions 30 day Reassessments:: Progressing - pt met with dietary - Healthy Eating Habits Will attend diet classes:: Yes Outcomes/Goals:: Consume diet rich in vegs,fruits,whole grain/high fiber,fish ,lean meat, Limit sat/trans fats,cholesterol & added salts & sugars, Other additional outcome/goals: Intervention/Plan:: Assess current eating habits, Other Additional plan/in terventions 30-day Reassessments:: Progressing - pt met with dietary - Education Gave educational materials for:: Signs & symptoms of hypoglycemia, Signs & symptoms of hyperglycemia, Relate diabetes to coronary artery disease, Healthy eating Nutrition - 90-Day Assessment Nutrition - Final Assessment Core - Initial Assessment Core - 30-Day Assessment Core - 60-Day Assessment - Visit Date of Eval: 03/16/23 Session #:: 21 - Medication Compliance Preventative Medication(s):: Aspirin H/O mental health issues: depression, anxiety, or addiction?: No Doesn?t believe in the benefits of treatment?: No Believes medications are unnecessary or harmful?: No Has a concern about medication side effects?: No Expresses concern over the cost of medications?: No Outcomes/Goals: Verbalizes medications,desired effect & common side effects @ DC, Pt self-reports following medication regimen, Keeps card in wallet w/medications listed by DC, Other additional outcome/goals: Interventions/plans: Instruct on medication effects & side effects, Review medication list w/patient every two weeks, Instruct importance of taking meds as ordered & assist problem solving, Other additional 30-day Reassessments:: Progressing - encouraged to take meds - Tobacco Use Tobacco Use: Non-smoker - Hypertension Hypertension Diagnosis:: Hypertension ICD-10 I10 Resting Blood Pressure:: 118/62 [place] [employer] Hypertension Guidelines: [place] [employer] Hypertension Guidelines. Normal BP Less than 120/80. Elevated BP 120/80. Hypertension Stage 1: BP 130-139/80-89. Hypertesnion Stage 2: BP 140 or higher/90 or higher. Hypertension Crisis: BP higher than 180/120 Peak Exercise Blood Pressure:: 124/66 Outcomes/Goals: Able to verbalize/achieve optimal blood pressure <130/80, Incorporates diet changes & exercise for blood pressure control by DC, Other additional outcomes/goals Interventions/plan: Instruct on optimal blood pressure, hypertension & medications, Instruct on effects of sodium, alcohol, stress, exercise &hypertension, Other additional plan/interventions 30 day Reassessments:: Progressing - encouraged to take meds - Tobacco Cessation Referral Smoking Cessation Referral:: No Individual Education/Counseling:: No Education Schedule Given:: Yes Core - 90 Day Assessment Core - Final Assessment Psychosocial - Initial Assess Psychosocial - 30-Day Assess Psychosocial - 60-Day Assess - VIsit Date of Eval: 03/16/23 Session #:: 21 History of previous Mental disease:: No Psychosocial - 90-Day Assess Psychosocial - Final Assessmen Patient Health Questionnaire 60-Day Re-eval Assessment 1. Little interest or pleasure in doing things: Not at all 2. Feeling down, depressed, or hopeless: Not at all 3. Trouble falling or staying asleep, or sleeping too much: Several days 4. Feeling tired or having little energy: Several days 5. Poor appetite or overeating: Not at all 6. Feeling bad about yourself -- or that you are a failure or have let yourself or your family down: Not at all 7. Trouble concentrating on things, such as reading the newspaper or watching television: Not at all 8. Moving or speaking so slowly that other people could have noticed. Or the opposite - being so fidgety or restless that you have been moving around a lot more than usual: Not at all 9. Thoughts that you would be better off , or of hurting yourself in some way: Not at all How difficult have these problems made it for you to do your work, take care of things at home, or get along with other people?: Not difficult at all Total Score: 2 Self-Efficacy 60-Day Re-eval Assessment We would like to know how confident you are in doing certain activities. Please select your confidence level for:: Select your confidence level for the following using the scale 1-10 where 1 is not at all confident and 10 is totally confident. Your score is the average of all 6 responses. Fatigue: How confident are you that you can keep the fatigue caused by your disease from interfering with the things you want to do? Select Number: 9 Physical Discomfort or Pain: How confident are you that you can keep the physical discomfort or pain of your disease from interfering with the things you want to do? Select Number: 9 Emotional Distress: How confident are you that you can keep the emotional distress caused by your disease from interfering with the things you want to do? Select Number: 10 Other Symptoms or Health Problems: How confident are you that you can keep other symptoms or health problems from interfering with the things you want to do? Select Number: 9 Different Tasks and Activities: How confident are you that you can do the different tasks and activities needed to manage your health condition so as to reduce your need to see a doctor? Select Number: 10 Medication: How confident are you that you can do things other than just taking medication to reduce how much your illness affects your everyday life? Select Number: 10 Total Score:: 9 Nutrition Survey
[2023-03-16 09:49] VITALS: BP 118/62; BP 124/66; BMI 23.6
== END 2023-04-08 23:59 ==
LOC: CR 14:30
PROVIDERS: PCP Family Medicine; Referring Provider Internal Medicine Cardiovascular Disease; Visit Provider Internal Medicine Cardiovascular Disease
DX: I25.10 Atherosclerotic heart disease of native coronary artery without angina pectoris (principal); Z95.1 Presence of aortocoronary bypass graft; Z98.890 Other specified postprocedural states; Z87.74 Personal history of (corrected) congenital malformations of heart and circulatory system
CPT/HCPCS: 93798

== ENCOUNTER 2023-04-29 14:15 | Outpatient (RCR) | payer OTHER, MEDICAID, SELFPAY ==
[2023-03-16 09:49] VITALS: BMI 23.6
[2023-04-09 00:35] VITALS: BP 118/62; BP 124/66
--- NOTE | 2023-04-15 08:12 | PCM.CR.ITP ---
Diagnosis Exercise - 90-day Assessment - Visit Date of Eval: 04/15/23 Session #:: 31 - Physician Prescribed Exercise Modalities: Treadmill, NuStep, SciFit Frequency: 3x/week for 12 weeks [36 sessions] Intensity: 60-80% of age predicted maximum heart rate reserve Current METSs:: 7 Target Heart Rate:: 117-133 Current RPE:: 12-13 Maximum Excercise HR:: 136 Resting Blood Pressure: 110/64 Maximum Exercise Blood Pressure: 122/62 EKG Type: NSR to ST with rare pac and pvc noted. - Outcomes & Goals Goals:: Verbalizes understanding of THR, RPE & goal METS by session 6, Documents in home exercise log/reports 30 min aerobic 5 day/wk by DC, Demonstrates accurate pulse taking by DC, Other additional outcome/goals: see below - Intervention & Plan Exercise Program Goals: Instruct on personal THR & RPE, Instruct on MET level & personal MET goal, Show patient to take own pulse /validate performance until accurate, Instruct on home exercise, Other additional plan/int - 30-day Reassessments 30 day Reassessments:: Met - Physical Activity Home Exercise Physical Activity - Home Exercise: Safe Exercise, Warm-up, Self-monitoring, Cool-Down, Home Exercise > 30 min Daily, Sitting Time <3 hours/daily - Outcomes & Goals Outcomes/Goals: Demonstrates correct Warm-up/exercise Cool-Down (S3) if = 2.5 METs, Verbalizes symptoms of exercise intolerance by Session 3 (S3), Demonstrate safe equipment use (S3) & follows exercise prescrition (6), Other: See below - Intervention & Plan Plan/Intervention: Instruct warm-up & cool-down if exercising at > 2 METs, Instruct on symptoms of exercise intolerance & actions to take, Instruct & monitor on saf, Assess intial functional capacity & safety risk, Other See below - 30-day Reassessments 30 day Reassessments:: Met Nutrition - Initial Assessment Nutrition - 30-Day Assessment Nutrition - 60-Day Assessment Nutrition - 90-Day Assessment - Program Goals Nutrition Program Goals: LDL <100 optimal. 100 - 129 Near optimal. 130 - 159 Borderline High. 160 - 189 High. Total Cholesterol <200 desirable. 200 - 239 Borderline High. >/= 240 High. HDL < 40 Low >/=60 High. Triglycerides <150 desirable. <199 optimal. VlDL 5 - 40. HgbA1C <7%. BMI <25 Patient has diagnosis of Hyperlipidemia (ICD E78)?: Yes - Visit Date of Assessment:: 04/15/23 Session #:: 31 - Cholesterol/Lipids (Other Core Measures) Determine presence & major risk factors that modify LDL goal: Hypertension or hypertensive medication, Low HDL cholesterol <40 mg/dL*, Family history of premature CHD in Male < 55 years: female <65 yearsFa, Age men > 45 years; women >/= 55 years Outcomes/Goals: Pt IDs own risk factors & lifestyle modifications by Session 10, Verbalizes symptoms of angina & response by session 3., Pt independently manages, Other Additional Outcomes/Goals: Intervention/Plan: Advocate for lipid panel cholesterol medication if applicable, Instruct on personal lipid levels & lipid goals/NCEP guidelines, Instruct on cholesterol, Other additional plan/int Referral to dietitian:: No - pt has met with dietary 30-day Reassessments:: Met - Weight Mgt (Other Care) Height: 5 ft 8 in Weight:: 71.214 kg BMI: 23.8 Diagnosis Overweight/Obesity BMI> 30% ICD-10 E66: No Diagnosis High BMI/Morbid Obesity BMI> 35% ICD-10 Z68: No Outcomes/Goals: Pt sets, maintains & shows weight loss goal & trend during rehab, Other additional outcomes/goals Intervention/Plan: Instruct on ideal BMI & set weight loss goal w/patient, Assist pt to ID & incorporate diet changes for weight loss by S9, Refer to Structured Weight Loss program as appropriate, Encourage goal of using 250-300dcal per session for weight loss, Other additional plan/interventions 30 day Reassessments:: Met - Healthy Eating Habits Will attend diet classes:: Yes Outcomes/Goals:: Consume diet rich in vegs,fruits,whole grain/high fiber,fish,lean meat, Limit sat/trans fats,cholesterol & added salts & sugars, Other additional outcome/goals: Intervention/Plan:: Assess current eating habits, Other Additional plan/interventions 30-day Reassessments:: Met - Education Gave educational materials for:: Signs & symptoms of hypoglycemia, Signs & symptoms of hyperglycemia, Relate diabetes to coronary artery disease, Healthy eating Nutrition - Final Assessment Core - Initial Assessment Core - 30-Day Assessment Core - 60-Day Assessment Core - 90 Day Assessment - Visit Date of Eval: 04/15/23 Session #:: 31 - Medication Compliance Preventative Medication(s):: Aspirin H/O mental health issues: depression, anxiety, or addiction?: No Doesn?t believe in the benefits of treatment?: No Believes medications are unnecessary or harmful?: No Has a concern about medication side effects?: No Expresses concern over the cost of medications?: No Outcomes/Goals: Verbalizes medications,desired effect & common side effects @ DC, Pt self-reports following medication regimen, Keeps card in wallet w/medications listed by DC, Other additional outcome/goals: Interventions/plans: Instruct on medication effects & side effects, Review medication list w/patient every two weeks, Instruct importance of taking meds as ordered & assist problem solving, Other additional 30-day Reassessments:: Met - Tobacco Use Tobacco Use: Non-smoker - Hypertension Hypertension Diagnosis:: Hypertension ICD-10 I10 Resting Blood Pressure:: 110/64 [employer] Hypertension Guidelines: [place] [employer] Hypertension Guidelines. Normal BP Less than 120/80. Elevated BP 120/80. Hypertension Stage 1: BP 130-139/80-89. Hypertesnion Stage 2: BP 140 or higher/90 or higher. Hypertension Crisis: BP higher than 180/120 Peak Exercise Blood Pressure:: 122/62 Outcomes/Goals: Able to verbalize/achieve optimal blood pressure <130/80, Incorporates diet changes & exercise for blood pressure control by DC, Other additional outcomes/goals Interventions/plan: Instruct on optimal blood pressure, hypertension & medications, Instruct on effects of sodium, alcohol, stress, exercise &hypertension, Other additional plan/interventions 30 day Reassessments:: Met - Tobacco Cessation Referral Smoking Cessation Referral:: No Individual Education/Counseling:: No Education Schedule Given:: Yes Core - Final Assessment Psychosocial - Initial Assess Psychosocial - 30-Day Assess Psychosocial - 60-Day Assess Psychosocial - 90-Day Assess - VIsit History of previous Mental disease:: No Psychosocial - Final Assessmen Patient Health Questionnaire 90-Day Re-eval Assessment 1. Little interest or pleasure in doing things: Not at all 2. Feeling down, depressed, or hopeless: Not at all 3. Trouble falling or staying asleep, or sleeping too much: Several days 4. Feeling tired or having little energy: Several days 5. Poor appetite or overeating: Not at all 6. Feeling bad about yourself -- or that you are a failure or have let yourself or your family down: Not at all 7. Trouble concentrating on things, such as reading the newspaper or watching television: Not at all 8. Moving or speaking so slowly that other people could have noticed. Or the opposite - being so fidgety or restless that you have been moving around a lot more than usual: Not at all 9. Thoughts that you would be better off , or of hurting yourself in some way: Not at all How difficult have these problems made it for you to do your work, take care of things at home, or get along with other people?: Not difficult at all Total Score: 2 Self-Efficacy 90-Day Re-eval Assessment We would like to know how confident you are in doing certain activities. Please select your confidence level for:: Select your confidence level for the following using the scale 1-10 where 1 is not at all confident and 10 is totally confident. Your score is the average of all 6 responses. Fatigue: How confident are you that you can keep the fatigue caused by your disease from interfering with the things you want to do? Select Number: 9 Physical Discomfort or Pain: How confident are you that you can keep the physical discomfort or pain of your disease from interfering with the things you want to do? Select Number: 9 Emotional Distress: How confident are you that you can keep the emotional distress caused by your disease from interfering with the things you want to do? Select Number: 10 Other Symptoms or Health Problems: How confident are you that you can keep other symptoms or health problems from interfering with the things you want to do? Select Number: 9 Different Tasks and Activities: How confident are you that you can do the different tasks and activities needed to manage your health condition so as to reduce your need to see a doctor? Select Number: 10 Medication: How confident are you that you can do things other than just taking medication to reduce how much your illness affects your everyday life? Select Number: 10 Total Score:: 9 Nutrition Survey
[2023-04-15 08:21] VITALS: BP 110/64; BP 122/62; BMI 23.8
== END 2023-05-08 23:59 ==
LOC: CR 14:15
PROVIDERS: PCP Family Medicine; Referring Provider Internal Medicine Cardiovascular Disease; Visit Provider Internal Medicine Cardiovascular Disease
DX: I25.10 Atherosclerotic heart disease of native coronary artery without angina pectoris (principal); Z95.1 Presence of aortocoronary bypass graft; Z98.890 Other specified postprocedural states; Z87.74 Personal history of (corrected) congenital malformations of heart and circulatory system
CPT/HCPCS: 93798

== ENCOUNTER → 2023-07-06 | Outpatient (CLI) | payer OTHER, MEDICAID, SELFPAY ==
[2023-04-15 08:21] VITALS: BMI 23.8
[2023-07-06 18:00] LABS: Absolute Lymphocyte Count 2.15 X10^3/uL (0.83-4.51); Absolute Neutrophil Count 4.1 X10^3/uL (2.0-7.7); Basophil# 0.03 X10^3/uL; Basophil% 0.4 % (0-1); Eosinophils% 4.1 % (0-5); Hemoglobin 11.3 g/dL (12.0-15.0); Lymphocyte # 2.15 X10^3/ul (0.83-4.51); Lymphocyte % 29.1 % (19-41); Mean Corp Hgb Conc 31.4 g/dL (32-36); Mean Corpuscular Hgb 28.4 pg (27.0-32.0); Mean Corpuscular Volume 90.5 fL (81-99); Mean Platelet Vol. 9.8 fl (6.2-12.0); Monocyte# 0.74 X10^3/uL; NRBC Flagged by Analyzer 0 % (0-5); Neutrophil # 4.13 X10^3/uL (2.7-7.7); Platelet Count 251 K/mm3 (150-450); RBC Distribution Width CV 12.6 % (11.6-14.6); RBC Distribution Width SD 41.3 fl (35.1-43.9); Red Blood Count 3.98 M/mm3 (4.2-5.4); White Blood Count 7.4 K/mm3 (4.4-11.0)
[2023-07-06 18:41] LABS: AST(SGOT) 9 U/L (15-37); Alanine Aminotransfer ALT/SGPT 22 U/L (13-56); Albumin, Serum 3.5 g/dL (3.2-5.0); Alkaline Phosphatase 93 U/L (45-117); Bilirubin, Direct 0.05 mg/dL (0.00-0.30); Cholesterol 135 mg/dL (200); Globulin 3.7 g/dL (2.2-4.2); High Density Lipoprotein 41 mg/dL; Protein, Total 7.2 g/dL (6.4-8.2); Triglycerides 174 mg/dL; Very Low Density Lipoprotein 35 mg/dL (5-40)
== END | disposition home or self-care (01) ==
PROVIDERS: PCP Family Medicine; Referring Provider Nurse Practitioner Family; Visit Provider Nurse Practitioner Family
DX: D50.9 Iron deficiency anemia, unspecified (principal); Z87.74 Personal history of (corrected) congenital malformations of heart and circulatory system; Z98.890 Other specified postprocedural states; Z95.1 Presence of aortocoronary bypass graft
CPT/HCPCS: 36415; 80061; 80076; 85025

== ENCOUNTER → 2023-07-16 | Outpatient (CLI) | payer OTHER, MEDICAID, SELFPAY ==
[2023-04-15 08:21] VITALS: BMI 23.8
--- NOTE | 2023-07-16 15:05 | BI_ITS ---
MAMMOGRAPHY - BILATERAL SCREENING REASON FOR EXAM: Female, 63 years old. Routine annual screening examination. PERTINENT HISTORY: Grandmother with breast cancer. Aunt with breast cancer. TECHNIQUE: Digital bilateral breast pinky (3D mammographic acquisition) in the CC and MLO projections. 2-D mediolateral oblique (MLO) and craniocaudad (CC) views of both breasts were obtained. CAD: Full Field Digital Mammography with Computer Added Detection was performed. COMPARISON: Comparison is made with prior study May 01, 2022. FINDINGS: Breast Composition: The breasts are extremely dense, which lowers the sensitivity of mammography. There are no dominant masses or suspicious calcifications. No other significant abnormalities are identified. There has been no significant change since the prior study. BI/SCRN MAMM (CAD)W/PINKY BILAT IMPRESSION: Stable bilateral screening mammogram. Yearly follow-up mammogram recommended. (A) ASSESSMENT CATEGORY: BIRADS Category 1: Negative. A letter regarding these results will be sent to the patient by the facility within 30 days. Approximately 10% of breast cancers are not detected by mammography. A normal mammogram should not delay biopsy of a clinically suspicious abnormality. [id number] Electronically Signed: Aurelio Mercedes MD at 8:21 EDT ,
[2023-07-16 16:34] LABS: Cholesterol 173 mg/dL (200); High Density Lipoprotein 50 mg/dL; Triglycerides 181 mg/dL; Very Low Density Lipoprotein 36 mg/dL (5-40)
== END | disposition home or self-care (01) ==
PROVIDERS: Nurse Practitioner Family; PCP Family Medicine; Referring Provider Family Medicine; Visit Provider Family Medicine
DX: Z12.31 Encounter for screening mammogram for malignant neoplasm of breast (principal); Z80.3 Family history of malignant neoplasm of breast; D50.9 Iron deficiency anemia, unspecified; I25.10 Atherosclerotic heart disease of native coronary artery without angina pectoris; E78.5 Hyperlipidemia, unspecified
CPT/HCPCS: 36415; 77063; 77067; 80061

== ENCOUNTER → 2023-07-31 | Outpatient (CLI) | payer OTHER, MEDICAID, SELFPAY ==
[2023-04-15 08:21] VITALS: BMI 23.8
[2023-07-31 18:10] LABS: Anion Gap 5 (5-15); BUN 21 mg/dL (7-18); BUN/Creat Ratio 21.8 RATIO (10-20); Calcium,Total 8.9 mg/dL (8.5-10.1); Chloride 108 mmol/L (98-107); Creatinine, Serum 0.96 mg/dL (0.55-1.02); EST Glomerular Filtration Rate 62 mL/min (>60); Est Glom Filt Rate - Afr Amer 75 mL/min (>60); Glucose 128 mg/dL (74-106); Potassium 3.7 mmol/L (3.5-5.1); Sodium Level 140 mmol/L (136-145)
[2023-08-05 17:07] LABS: HPV APTIMA, High Risk Negative (Negative)
[2023-08-05 17:46] LABS: HPV Reflexed? YES, CHARGE PATIENT
== END | disposition home or self-care (01) ==
LOC: MFPLAB 15:56
PROVIDERS: PCP Family Medicine; Visit Provider Family Medicine
DX: I25.10 Atherosclerotic heart disease of native coronary artery without angina pectoris (principal)
CPT/HCPCS: 36415; 80048; 87624; 88175; G0145

== ENCOUNTER 2023-09-03 06:30 | Day surgery (SDC) | payer OTHER, MEDICAID, SELFPAY ==
[2023-04-15 08:21] VITALS: BMI 23.8
[2023-09-03] MEDS: Lactated Ringers 1,000 ML 15 ML IV (06:56)
[2023-09-03 07:00] VITALS: BP 126/62; PULSE 71; RESP 16; TEMP 37.1; O2SAT 100; BMI 23.8
--- NOTE | 2023-09-03 07:17 | HP.PCM_ITS ---
History and Physical Date of Admission: 09/03/23 Date of Service: 08/13/23 MR#: [id number] Acct: [id number] Name: ANISH LANDON Rep #: [id number] : 1960 Provider: Dr. Romario Morales MD Age/Sex: 63/F Location: [facility] Status: Signed Intake Vital Signs 05/01/2314:10 08/13/2309:14 Height 5 ft 8 in 5 ft 8 in Weight: 159 lb BMI 24.1 BP 126/9 H Blood Pressure Location Rt brachial Position Sitting Respiration 17 Pulse 64 Pulse Source Monitor Temp 96.7 F L Temp Source Temporal Pulse Oximetry (%) 100 Oxygen Delivery Method room air Intake Visit Reasons: SCREENING COLONOSCOPY Chief Complaint: screening colonoscopy Is patient in pain?: No Allergies aspirin Allergy (Verified 05/01/23 14:11) Vomitingerythromycin base [Erythromycin Base] Allergy (Verified 08/13/23 09:17) VomitingPenicillins Allergy (Verified 08/13/23 09:17) Angioedemaprocaine HCl [From Novocain] Allergy (Verified 08/13/23 09:17) Otheribuprofen Adverse Reaction (Unknown, Verified 05/01/23 14:11) Vomiting Medications albuterol sulfate 90 mcg/actuation aerosol inhaler (Ventolin HFA) 2 puff inhalation Q4H PRN PRN Sob &/Or Wheezing 02/05/16 [History Confirmed 08/13/23] pantoprazole 40 mg tablet,delayed release 40 mg PO BID #60 tabs 11/14/17 [Rx Confirmed 08/13/23] aspirin 81 mg tablet 81 mg PO DAILY 12/29/22 [History Confirmed 08/13/23] Stool Softener 03/29/23 [History Confirmed 08/13/23] furosemide 20 mg tablet 20 mg PO DAILY 03/29/23 [History Confirmed 08/13/23] atorvastatin 40 mg tablet 40 mg PO DAILY #90 tabs 07/27/23 [Rx Confirmed 08/13/23] metoprolol tartrate 50 mg tablet 50 mg PO BID #180 tabs 07/27/23 [Rx Confirmed 08/13/23] PFSH Medical History (Updated 08/13/23 @ 21:[address] Romario Morales MD) Anemia Asthma Atherosclerotic heart disease of [place] coronary artery without angina pectoris Atrial fibrillation Constipation Heart murmur History of left heart catheterization (LHC) (~09/09/22) Non-rheumatic mitral regurgitation Nonrheumatic mitral (valve) prolapse Pleural effusion Seasonal allergies Surgical History History of coronary artery bypass surgery (~11/28/22) History of right oophorectomy Hx of mitral valve repair (~11/28/22) Status post patent foramen ovale closure (~11/28/22) Family History (Updated 08/13/23 @ 09:14 by Renata Chew) Grandmother Arrhythmia Presence of permanent cardiac pacemakerMother Cancer bladderFather Cancer lung Social History Smoking Status: Never smoker alcohol intake: never substance use type: does not use caffeine: Yes (occasional) HPI HPI HPI: Patient is a 63-year-old female who presents for need to schedule update of screening colonoscopy secondary to duration since prior colonoscopy. They are referred for surgical consultation from Dr. Messer. Patient had prior colonoscopy in [address] Adrian. She notes that a single polyp was identified with that scope but she was not given any special follow-up. She notes that there was a colonoscopy obtained prior to this scope as well with Dr. Hutchison but she is not able to give the year. She states along with this colonoscopy she underwent an EGD for a history of anemia and a hemoglobin?at that time of 4.9. She does report that because of this anemia she has required a total of 2 transfusions in her lifetime. She notes that this anemia has been a lifelong thing since she was a kid and she now takes iron a couple of times per month because any more frequently and she experiences significant GI upset. Patient has no personal history of colon cancer, inflammatory bowel disease, or diverticulitis. They describe their bowel habits as characterized by constipation. They have approximately 1 small bowel movement per day and t hereafter experience a larger bowel movement every 3 to 4 days. She confirms that she sometimes requires toilet time of 10-15 minutes with these larger bowel movements and significant straining. They, however do not have a history of hemorrhoids and have not noticed recent bleeding or dark stools. They do not regularly take fiber supplements, but do take regular stool softeners. Patient has a family history of diverticulitis in her mother?leading to a segmental colectomy. There is no family history for either cancer or inflammatory bowel disease. The patient's weight is stable. The patient is not prescribed anticoagulants/blood thinners. Relevant prior abdominal surgical history includes: Laparoscopy as well as tube and ovary removal in 2011. Patient also underwent a CABG with mitral valve repair in November of this year. She states that she has recovered well following this operation. She notes that it was preceded with very little warning and was occasioned by a acutely appreciated mitral valve murmur. Patient does not have a significant history of GERD or heartburn, yet she is on pantoprazole for history of ulcers remotely. She denies any recent epigastric discomfort. ROS General General: No weight change, appetite, fatigue, colon cancer, breast cancer or weakness HEENT HEENT: No difficulty swallowing, eye injury, eye surgery, swollen glands or hoarseness Endo Endocrine: No thyroid disease, diabetes mellitus, thyroid cancer, Hair loss, heat intolerance or cold intolerance Skin Skin: No rash or changing moles Musc Musculoskeletal: Yes arthritis; No back problems, rheumatoid arthritis, gout or joint pain Cardio Cardiovascular: Yes heart disease; No murmur, pacemaker, atrial fibrillation, high blood pressure, heart attack, heart stent, palpitations, shortness of breat with exertion or chest pain Psych Psychiatric: No depression, anxiety or hearing voices Resp Respiratory: No shortness of breath, No sleep apnea, No cough, No COPD, Yes a sthma, No emphysema and No wheezing Gastro Gastrointestinal: No abdominal pain, No nausea or vomiting, No diarrhea, Yes constipation, No blood in stool, No acid reflux, No hemorrhoids, Yes ulcers, No gallbladder problem and No black,tarry stools José Manuel Hematologic: No blood thinners, No blood disorders, No bleeding, Yes anemia and No blood clots Neuro Neurologic: No system reviewed and no additional complaints, except as documented, No as per HPI, No abnormal gait, No abnormal hearing, No abnormal movements, No abnormal speech, No behavioral changes, No burning sensations, No confusion, No convulsions, No disequilibrium, No dizziness, No localized weakness, No frequent falls, No headache(s), No lack of coordination, No loss of vision, No memory loss, No numbness, No other visual disturbances, No radicular pain, No restless legs, No sensory deficit, No syncope, No tingling, No tremor(s), No weakness and No other Exam Const General: cooperative, healthy appearing and comfortable Orientation: alert, awake and oriented x3 Resp Effort & Inspection: normal respiratory effort GI Other: Nondistended, soft, nontender to palpation x4 quadrants Assessment and Plan Assessment and Plan (1) Screening for malignant neoplasm of colon: Status: Acute Comment: This is a 63-year-old female who presents for update screening colonoscopy with her last colonoscopic evaluation approximately 9 years ago. She does have a history of constipation and chronic anemia, but this has never been linked to a GI abnormality with 2 prior colonoscopies and EGDs. She also suggest that she may have had a non-adenomatous polyp removed at her last colonoscopy 9 years ago. There do not appear to been any significant changes to her GI function recently. She is well recovered following a CABG with valve repair November of this year. Therefore, given the above I do find it reasonable to proceed with a update colonoscopy. Patient has made aware of the recommendation for a 2-day bowel prep given her history of constipation. Plan: Plan will be to complete colonoscopy on first mutually agreeable date under local MAC. Pre-procedure prep discussed and paper instructions provided. Patient is also made aware that she will need to have a diesel truck driver with her the day of the procedure. I have examined the patient and the H&P has been reviewed. There are no clinical changes since date of exam. We were able to obtain records from patient's prior colonoscopy in 2013 (patient confirms that she had a second endoscopy session that consisted of EGD only). This was performed by Dr. Hutchison of the [facility] and there was a finding of a sessile polyp of the cecum. Therefore we will plan to very closely survey this portion of the colon. Patient confirms that she completed a prep in anticipation of today's procedure and states that her output is now clear. She denies any further questions so we will proceed to the endoscopy suite for planned surveillance colonoscopy.
--- NOTE | 2023-09-03 07:30 | COLBX_PTH ---
PATIENT: ANISH LANDON LOC: EN U#:[id number] AGE/SX: 63/F ROOM: RE09/03/[address]: Dr. Romario Morales MD : 1960 BED: DIS: 09/03/2023 SPEC #: [id number] RECD: 09/03/23 14:58 STATUS: GONZALO REYES #: [id number] CARINA: 09/03/23 07:[address]: Romario Morales DEPT: SURGICAL PATHOLOGY RECD BY: Trudy Maxwell ENTERED: 09/04/23 07:53 SP TYPE: COLON BX OTHR DR: Dr. Shanika Messer MD Tissues: Rectum, NOS Procedures: Surgery Specimen Level IV HEADER OPERATION: Colonoscopy, biopsy PRE-OP DIAGNOSIS: Screening TISSUE SUBMITTED: Rectal biopsy MICROSCOPIC DIAGNOSIS Rectal biopsy: Focal acute colitis. See comment. MATT:claudette 09/07/2023 COMMENT Focal cryptitis and minimal glandular distortion is noted. Crypt abscesses or granulomas are not seen. Correlation with clinical, endoscopic findings and appropriate follow up are necessary. MICROSCOPIC DESCRIPTION Slides are reviewed. GROSS DESCRIPTION Received in fixative is one container labeled with the patient's name and designated rectal biopsy. The specimen consists of one irregular fragment of light jo soft tissue that measures 0.3 x 0.1 x 0.1 cm. The specimen is totally submitted in one cassette. / SJ:claudette 09/04/2023 TC:2 CPT: 35657
[2023-09-03 08:35] VITALS: BP 126/62; BP 84/46; PULSE 64; RESP 16; TEMP 36.5; O2SAT 94
[2023-09-03 08:40] VITALS: BP 126/62; BP 84/49; PULSE 61; RESP 16; O2SAT 95
--- NOTE | 2023-09-03 08:40 | OP.COLON_ITS ---
Patient Name: Maritza Chu Procedure Date: 09/03/2023 8:01 AM Date of : 1960 Age: 63 Procedure: Colonoscopy Indications: High risk colon cancer surveillance: Personal history of traditional serrated adenoma of the colon Providers: Romario Morales MD Medicines: See the Anesthesia note for documentation of the administered medications Patient Profile: Last Colonoscopy: 9 years ago. Complications: No immediate complications. Estimated blood loss: Minimal. Procedure: Pre-Anesthesia Assessment: - The heart rate, respiratory rate, oxygen saturations, blood pressure, adequacy of pulmonary ventilation, and response to care were monitored throughout the procedure. After I obtained informed consent, the scope was passed under direct vision. Throughout the procedure, the patient's blood pressure, pulse, and oxygen saturations were monitored continuously. The Colonoscope was introduced through the anus and advanced to the cecum, identified by the appendiceal orifice, ileocecal valve and palpation. The colonoscopy was performed without difficulty. The patient tolerated the procedure well. The quality of the bowel preparation was excellent. Scope In: 8:08:23 AM Scope Withdrawal Time 0 hours 11 minutes 26 seconds Scope Out: 8:31:20 AM Total Procedure Duration Time 0 hours 22 minutes 57 seconds Findings: The entire examined colon appeared normal. Localized mild inflammation characterized by erythema was found in the rectum. Biopsies were taken with a cold forceps for histology. Estimated blood loss was minimal. The perianal and digital rectal examinations were normal. Pertinent negatives include normal sphincter tone. Impression: - The entire examined colon is normal. - Localized mild inflammation was found in the rectum secondary to proctitis. Biopsied. Recommendation: - Discharge patient to home (via wheelchair). - Resume previous diet today. - Continue present medications. - Await pathology results. - Repeat colonoscopy in 5 years for surveillance. - Telephone my office for pathology results in 1 week. Procedure Code(s): --- Professional --- 24550, Colonoscopy, flexible; with biopsy, single or multiple Diagnosis Code(s): --- Professional --- Z86.010, Personal history of colonic polyps K62.89, Other specified diseases of anus and rectum CPT copyright 2021 [employer]. All rights reserved. The codes documented in this report are preliminary and upon golf club manager review may be revised to meet current compliance requirements. Romario Morales MD 09/03/2023 8:39:49 AM This report has been signed electronically. Number of Addenda: 0 Note Initiated On: 09/03/2023 8:01 AM
--- NOTE | 2023-09-03 08:41 | OP.CCLET_ITS ---
09/03/2023 Shanika Messer [address] [place] [address] Re : Colonoscopy procedure for Maritza Chu Dear Dr. Messer This procedure was performed on August. My impressions and recommendations are as follows: Impressions : - The entire examined colon is normal. - Localized mild inflammation was found in the rectum secondary to proctitis. Biopsied. Recommendations : - Discharge patient to home (via wheelchair). - Resume previous diet today. - Continue present medications. - Await pathology results. - Repeat colonoscopy in 5 years for surveillance. - Telephone my office for pathology results in 1 week. My findings are described in the full procedure note, which is enclosed. If I can be of further assistance, please feel free to contact me at Doctor phone number(s): , Work: . Sincerely, Romario Morales MD 09/03/2023 8:39:49 AM This report has been signed electronically.
[2023-09-03 08:45] VITALS: BP 126/62; BP 88/75; PULSE 65; RESP 16; O2SAT 96
[2023-09-03 08:50] VITALS: BP 126/62; BP 95/48; PULSE 61; RESP 18; TEMP 36.3; O2SAT 99
[2023-09-03 09:07] VITALS: BP 126/62
== END 2023-09-03 11:55 | disposition home or self-care (01) ==
LOC: EN 06:33 → AC 06:34
PROVIDERS: PCP Family Medicine; Referring Provider Family Medicine; Visit Provider Surgery
PROC: 0DJD8ZZ Inspection of Lower Intestinal Tract, Via Natural or Artificial Opening Endoscopic (ICD-10-PCS; CPT 45378; principal; 2023-09-03 07:25)
DX: Z12.11 Encounter for screening for malignant neoplasm of colon (principal); K62.89 Other specified diseases of anus and rectum; D64.9 Anemia, unspecified; I25.10 Atherosclerotic heart disease of native coronary artery without angina pectoris; Z86.010 Personal history of colon polyps; K52.9 Noninfective gastroenteritis and colitis, unspecified; Z95.1 Presence of aortocoronary bypass graft; Z95.2 Presence of prosthetic heart valve
CPT/HCPCS: 45380; 88305; J7120; J2405

== ENCOUNTER → 2023-12-04 | Outpatient (CLI) | payer MEDICAID, SELFPAY ==
[2023-04-15 08:21] VITALS: BMI 23.8
--- NOTE | 2023-12-04 12:47 | ECHOD_ITS ---
Reason For Study: Post Valve Repair-1 year evaluation Procedure This was a 2D Doppler, Color Flow transthoracic echocardiogram. Exam performed in department. Left Ventricle Normal LV size. Normal diastololic function. The left ventricular ejection fraction is 60 %. Right Ventricle Normal RV size. Normal systolic function. Atria The left atrium is mildly enlarged. Normal right atrium. Mitral Valve Mild diffuse mitral valve thickening. There is no mitral valve stenosis. Mild (1+) mitral valve insufficiency. Status post mitral valve repair. Tricuspid Valve Normal tricuspid valve. Mild (1+) tricuspid valve insufficiency. Right ventricular systolic pressure estimated to be 27 mmHg. Aortic Valve Trisinus/trileaflet aortic valve. Mild focal aortic valve thickening. Mild (1+) aortic valve insufficiency. Pulmonic Valve The pulmonic valve is not well visualized. Trivial pulmonic valve insufficiency. Great Vessels Normal aortic root. Pericardium/Pleural No pericardial effusion. MMode/2D Measurements & Calculations LVIDd: 4.8 cm IVSd: 1.1 cm Ao root diam: 2.8 cm LVIDs: 3.6 cm LVPWd: 0.71 cm LA dimension: 4.1 cm RVDd: 3.2 cm FS: 25.0 % LAV(MOD-bp): 54.7 ml LVAd ap4: 26.2 cm2 SV(MOD-sp4): 37.2 ml LAV(MOD-bp) Indexed: 29.6 ml/m2 LVLd ap4: 7.5 cm LAV(MOD-sp2): 47.1 ml EDV(MOD-sp4): 73.3 ml LAV(MOD-sp4): 54.7 ml EDV(sp4-el): 77.5 ml LVAs ap4: 16.9 cm2 LVLs ap4: 6.7 cm ESV(MOD-sp4): 36.0 ml ESV(sp4-el): 35.9 ml EF(MOD-sp4): 50.8 % EF(sp4-el): 53.7 % SV(sp4-el): 41.6 ml LA A4 area: 19.3 cm2 RA A4 area: 13.6 cm2 TAPSE: 1.0 cm Time Measurements MV dec time: 0.25 sec Doppler Measurements & Calculations MV E max jerzy: 88.3 cm/sec Lat Peak E' Jerzy: 9.3 cm/sec Med Peak E' Jerzy: 5.6 cm/sec MV A max jerzy: 132.0 cm/sec E/E' lat: 9.5 E/E' med: 15.8 MV E/A: 0.67 MV V2 max: 141.8 cm/sec MV P1/2t max jerzy: 86.7 cm/sec Ao V2 max: 139.8 cm/sec MV max P.0 mmHg MV P1/2t: 79.1 msec Ao max P.8 mmHg MV V2 mean: 82.1 cm/sec MV dec slope: 321.0 cm/sec2 Ao V2 mean: 100.5 cm/sec MV mean P.2 mmHg Ao mean P.5 mmHg MV V2 VTI: 32.5 cm MVA(P1/2t): 2.8 cm2 Ao V2 VTI: 30.9 cm AV (velocity ratio): 0.68 AI max jerzy: 448.4 cm/sec LV V1 max: 95.4 cm/sec MR max jerzy: 493.8 cm/sec AI max P.4 mmHg LV V1 max P.6 mmHg MR max P.5 mmHg AI dec slope: 283.3 cm/sec2 LV V1 mean P.0 mmHg AI P1/2t: 463.6 msec LV V1 mean: 65.5 cm/sec LV V1 VTI: 21.0 cm TR max jerzy: 244.7 cm/sec TR max P.9 mmHg ECHO/Echo Complete Interpretation Summary The left atrium is mildly enlarged. Status post mitral valve repair. Mild (1+) mitral valve insufficiency. Mild (1+) tricuspid valve insufficiency. Mild focal aortic valve thickening. Mild (1+) aortic valve insufficiency. The left ventricular ejection fraction is 60 %. Ordering Physician: Brent Germain Referring Physician: Shanika Messer M.D. Performed By: Shahab Akins RCS
== END | disposition home or self-care (01) ==
LOC: CVS 12:46
PROVIDERS: PCP Family Medicine; Referring Provider Nurse Practitioner Family; Visit Provider Nurse Practitioner Family
DX: Z98.890 Other specified postprocedural states (principal); Z87.74 Personal history of (corrected) congenital malformations of heart and circulatory system; Z95.1 Presence of aortocoronary bypass graft
CPT/HCPCS: 93306

== ENCOUNTER → 2024-07-19 | Outpatient (CLI) | payer OTHER, SELFPAY ==
[2023-04-15 08:21] VITALS: BMI 23.8
--- NOTE | 2024-07-19 14:08 | BI_ITS ---
MAMMOGRAPHY - BILATERAL SCREENING REASON FOR EXAM: Female, 64 years old. Routine annual screening examination. PERTINENT HISTORY: Grandmother with breast cancer. Aunts with breast cancer. History of prior right stereotactic breast biopsy. TECHNIQUE: Digital bilateral breast pinky (3D mammographic acquisition) in the CC and MLO projections. 2-D mediolateral oblique (MLO) and craniocaudad (CC) views of both breasts were obtained. CAD: Full Field Digital Mammography with Computer Added Detection was performed. COMPARISON: Comparison is made with prior study dated July 16, 2023 and May 01, 2022. FINDINGS: Breast Composition: The breasts are extremely dense, which lowers the sensitivity of mammography. There are no dominant masses or suspicious calcifications. A tissue clip marker is seen in the anterior upper lateral aspect of the right breast. No other significant abnormalities are identified. There has been no significant change since the prior study. BI/SCRN MAMM (CAD)W/PINKY BILAT IMPRESSION: Stable bilateral screening mammogram. Yearly follow-up mammogram recommended. (A) ASSESSMENT CATEGORY: BIRADS Category 2: Benign. A letter regarding these results will be sent to the patient by the facility within 30 days. Approximately 10% of breast cancers are not detected by mammography. A normal mammogram should not delay biopsy of a clinically suspicious abnormality. [id number] Electronically Signed: Aurelio Mercedes MD at 15:08 EDT ,
== END | disposition home or self-care (01) ==
LOC: OPBI 14:07
PROVIDERS: PCP Family Medicine; Referring Provider Family Medicine; Visit Provider Family Medicine
DX: Z12.31 Encounter for screening mammogram for malignant neoplasm of breast (principal); Z80.3 Family history of malignant neoplasm of breast
CPT/HCPCS: 77063; 77067

== ENCOUNTER → 2024-08-03 | Outpatient (CLI) | payer OTHER, SELFPAY ==
[2023-04-15 08:21] VITALS: BMI 23.8
[2024-08-03 12:51] LABS: AST(SGOT) 15 U/L (15-37); Alanine Aminotransfer ALT/SGPT 29 U/L (13-56); Anion Gap 4 (5-15); BUN 18 mg/dL (7-18); BUN/Creat Ratio 21.3 RATIO (10-20); Calcium,Total 9.1 mg/dL (8.5-10.1); Chloride 107 mmol/L (98-107); Cholesterol 123 mg/dL (200); Creatinine, Serum 0.84 mg/dL (0.55-1.02); EST Glomerular Filtration Rate 72 mL/min (>60); Est Glom Filt Rate - Afr Amer 87 mL/min (>60); Glucose 134 mg/dL (74-106); High Density Lipoprotein 47 mg/dL; Potassium 3.9 mmol/L (3.5-5.1); Sodium Level 140 mmol/L (136-145); Triglycerides 131 mg/dL; Very Low Density Lipoprotein 26 mg/dL (5-40)
== END | disposition home or self-care (01) ==
LOC: MFPLAB 09:33
PROVIDERS: PCP Family Medicine; Visit Provider Family Medicine
DX: I25.10 Atherosclerotic heart disease of native coronary artery without angina pectoris (principal); E78.5 Hyperlipidemia, unspecified
CPT/HCPCS: 36415; 80048; 80061; 84450; 84460

== ENCOUNTER 2024-08-30 06:32 | Emergency (ER) | payer OTHER, SELFPAY ==
[2023-04-15 08:21] VITALS: BMI 23.8
[2024-08-30] VITALS (7 sets, daily range): BP systolic 113–131; BP diastolic 54–75; PULSE 65–89; RESP 15–20; TEMP 36.3–37.6; O2SAT 94–99; BMI 25.3
--- NOTE | 2024-08-30 07:09 | EDS_ITS ---
HPI History of Present Illness Chief Complaint: Palpitations Informant: patient Onset/Context/Timing Onset: Today Context: Sudden Onset Timing: Intermittent and Lasts (Approximately 25 minutes) Quality: Quivering Location: Chest Worsened by: Nothing Relieved by: Nothing Narrative Narrative: Patient presents with palpitations that began this morning. Patient states that she has been having some upper respiratory symptoms. Patient states she had a temperature of 103 at home. Patient admits to mild sore throat and rhinorrhea. Patient states she felt like she went into atrial fibrillation again this morning. Patient states this lasted approximate 25 minutes. Patient describes it as a quivering sensation. Patient states nothing makes it worse and nothing makes it better. Patient admits to some nausea but denies any vomiting. Patient also admits to mild headache and sinus pressure. [facility] Medical History Wears glasses Post-menopausal Arthritis Easy bruising Back pain Migraine headache Dietary restriction History of GI bleed Non-smoker History of edema History of echocardiogram Hx of transesophageal echocardiography (PHYLICIA) for monitoring Cardiology follow-up encounter Pleural effusion Atrial fibrillation Atherosclerotic heart disease of [place] coronary artery without angina pectoris History of left heart catheterization (LHC) (~09/09/22) Non-rheumatic mitral regurgitation Nonrheumatic mitral (valve) prolapse Asthma Heart murmur Anemia Constipation Seasonal allergies Home Medications ?Medication ?Instructions ?Recorded ?Last Taken ?Type albuterol sulfate 90 mcg/actuation 2 puff inhalation Q4H PRN PRN Sob 02/05/16 11/11/17 History aerosol inhaler (Ventolin HFA) &/Or Wheezing aspirin 81 mg tablet 81 mg PO DAILY 12/29/22 09/02/23 History furosemide 20 mg tablet 20 mg PO DAILY 03/29/23 09/02/23 History pantoprazole 40 mg tablet,delayed 40 mg PO DAILY 12/22/23 Unknown History release metoprolol tartrate 50 mg tablet 50 mg PO BID #180 tabs 03/01/24 Unknown Rx rosuvastatin 40 mg tablet 40 mg PO DAILY #90 tabs 03/01/24 Unknown Rx docusate sodium 250 mg capsule 250 mg PO QDAY 08/11/24 Unknown History Allergy/AdvReac Type Severity Reaction Status Date / Time erythromycin base Allergy Vomiting Verified 08/30/24 06:33 (Erythromycin Base) Penicillins Allergy Angioedema Verified 08/30/24 06:33 procaine HCl (From Novocain) Allergy Other Verified 08/30/24 06:33 ibuprofen AdvReac Unknown Vomiting Verified 08/30/24 06:33 Family History Grandmother Arrhythmia Presence of permanent cardiac pacemaker Mother Cancer bladder Father Cancer lung Surgical History History of cardiac catheterization Status post patent foramen ovale closure (~11/28/22) History of coronary artery bypass surgery (~11/28/22) Hx of mitral valve repair (~11/28/22) History of right oophorectomy Social History Smoking Status: Never smoker alcohol intake: never substance use type: does not use caffeine: Yes (occasional) ROS ROS ED Constitutional Constitutional ED: Reports fever(s); Denies chills Eyes Eyes: Denies blurry vision or change in vision ENT ENT ED: Reports rhinorrhea and sore throat Cardiovascular Cardiovascular: Reports palpitations; Denies chest pain Respiratory/Chest Respiratory/Chest: Reports dyspnea; Denies cough Gastrointestinal Gastrointestinal: Reports nausea; Denies vomiting Genitourinary Genitourinary ED: Denies dysuria or hematuria Musculoskeletal Musculoskeletal: Reports back pain; Denies neck pain Integumentary Denies abscess or rash Neurologic Neurologic: Reports headache(s); Denies weakness Allergic/Immunologic Allergic/Immunologic ED: Denies mouth swelling or urticaria EXAM Physical Exam Const Vital Signs: 08/30/24 06:36 08/30/24 06:40 08/30/24 06:44 Temperature 99.7 F H 99.7 F H Temperature Source Oral Oral Pulse Rate 89 87 Respiratory Rate 15 20 H Respiratory Effort Normal Blood Pressure 131/61 H 131/61 H Blood Pressure Mean 84 84 Pulse Ox 94 94 Oxygen Delivery Method Room Air Room Air 08/30/24 07:33 08/30/24 07:37 08/30/24 08:04 Temperature Temperature Source Pulse Rate 68 89 Respiratory Rate 16 15 Respiratory Effort Blood Pressure 115/63 124/75 H Blood Pressure Mean 80 91 Pulse Ox 99 99 Oxygen Delivery Method Room Air Room Air 08/30/24 09:28 08/30/24 10:15 Temperature 97.3 F L Temperature Source Oral Pulse Rate 65 67 Respiratory Rate 15 15 Respiratory Effort Blood Pressure 122/54 H 118/63 Blood Pressure Mean 76 81 Pulse Ox 97 95 Oxygen Delivery Method Room Air Room Air Positive well nourished and well developed General Appearance ED: well developed and NAD HEENT Reports moist mucous membranes Neck supple and no JVD Resp normal respiratory effort and clear to auscultation bilaterally Cardio regular rate and regular rhythm GI non-tender and non-distended Palpation: soft Extremity normal to inspection General Extremety ED: Negative for edema or tenderness General Extremity: Negative for edema Neuro oriented x3, CN's II-XII intact bilaterally and no sensory deficits noted Sensorium / Orientation: alert Motor Exam: strength 5/5 throughout Psych mental status grossly normal MDM MDM MDM Narrative Medical decision making narrative: Differential diagnosis includes cardiac dysrhythmia, cardiac ischemia, pneumonia, bronchitis, viral upper respiratory infection, and anxiety. EKG will be obtained to assess for cardiac dysrhythmia and cardiac ischemia. Chest x-ray will be obtained to assess for pneumonia and pneumothorax. CBC will be obtained to assess for leukocytosis and anemia. Basic metabolic profile will be obtained to assess for electrolyte abnormality and renal function. High-sensitivity troponin will be obtained to assess for cardiac ischemia. 2-hour repeat high- sensitivity troponin will be obtained to assess for ongoing cardiac ischemia. COVID-19, influenza, and RSV PCR will be obtained to assess for viral illness. Lab Data Attestation: I reviewed the patient's lab results. Lab results narrative: CBC was reviewed and was essentially within normal limits. Basic metabolic profile was reviewed. Glucose was slightly elevated at 163. The remainder was within normal limits. Initial high-sensitivity troponin was reviewed and was normal at less than 3. 2-hour repeat high-sensitivity troponin was reviewed and was normal at 3. COVID-19 PCR was reviewed and was negative. Influenza PCR was reviewed and was negative for influenza A and influenza B. RSV PCR was reviewed and was negative. Labs: Laboratory Results - last 24 hr 08/30/24 08/30/24 06:50 10:13 WBC 8.5 RBC 4.59 Hgb 13.1 Hct 40.0 MCV 87.1 MCH 28.5 MCHC 32.8 RDW Std Deviation 42.4 RDW Coeff of [place] 13.4 Plt Count 233 MPV 9.9 Immature Gran % (Auto) 0.400 Neut % (Auto) 72.8 H Lymph % (Auto) 13.0 L [place] % (Auto) 12.2 H Eos % (Auto) 1.1 Baso % (Auto) 0.5 Absolute Neuts (auto) 6.2 Absolute Lymphs (auto) 1.11 Sodium 137 Potassium 3.6 Chloride 104 Carbon Dioxide 27.0 Anion Gap 6 BUN 16 Creatinine 1.06 H Estim Creat Clear Calc 54.09 Est GFR (MDRD) Af Amer 67 Est GFR (MDRD) Non-Af 55 L BUN/Creatinine Ratio 15.1 Glucose 163 H Calcium 9.1 Troponin I High Sens < 3 L 3 Radiography Chest X-Ray - ED: 1 View, Read by ED Physician, Read by Radiologist and No Acute Disease Diagnostic Testing: Clinical Impression(s) from Imaging Studies Chest X-Ray 08/30/24 07:35 IMPRESSION: No radiographic evidence of acute cardiopulmonary disease. Electronically Signed: Brain Diego MD at 9:12 EDT , Portable 1 view chest x-ray was obtained. On my independent interpretation, lung [place] are clear. There is normal cardiac silhouette. Bony thorax is normal. There is no acute process noted. Radiologist also interpreted the x- ray and agrees. EKG Initial EKG: Attestation: I personally reviewed and interpreted this EKG as follows: Interpretation: Sinus Rhythm (83) and Non-Specific ST Changes Comments: EKG was obtained. On my independent interpretation, it showed a normal sinus rhythm with a rate of 83. UT interval, QRS interval, and QTc intervals were all normal. [place] was normal. There are nonspecific ST-T wave changes. Prior EKG tracings: available for review Prior: Unchanged (01/16/2023) Treatment and Re-Evaluation :: Patient was given aspirin here. Patient was feeling better on reevaluation. Patient was advised of her findings. Patient was instructed to drink plenty of fluids. Patient was instructed use [id number] cough medications as needed. Patient was instructed to follow-up with her primary care physician in 5 to 7 days. Patient understood and was agreeable with the plan. All questions were answered. Discharge Plan Triage Chief Complaint: Palpitations ED Provider: Stepan Payan Dx/Rx/DC Orders Clinical Impression: Heart palpitations, Upper respiratory tract infection Instructions: ED Palpitations Prescriptions: No Action pantoprazole 40 mg tablet,delayed release (DR/EC) 40 mg PO DAILY docusate sodium 250 mg capsule 250 mg PO QDAY albuterol sulfate [Ventolin HFA] 18 GM HFA aerosol inhaler 2 puff inhalation Q4H PRN PRN (Reason: Sob &/Or Wheezing) Patient Comments: INHALE 2 (TWO) PUFFS EVERY 4 HOURS NEEDED aspirin 81 mg Tablet 81 mg PO DAILY furosemide 20 mg tablet 20 mg PO DAILY Patient Comments: TAKE 1 TABLET BY MOUTH EVERY DAY metoprolol tartrate 50 mg tablet 50 mg PO BID Qty: 180 3RF rosuvastatin 40 mg tablet 40 mg PO DAILY Qty: 90 3RF Primary Care Provider: Shanika Messer Referrals: Shanika Messer MD [Primary Care Provider] - 5-7 Days Print Language: [place] Disposition Disposition: Home, Self Care
--- NOTE | 2024-08-30 07:35 | EKG12_ITS ---
Test Reason : PALPS Blood Pressure : / mmHG Vent. 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
--- NOTE | 2024-08-30 07:35 | RAD_ITS ---
INDICATION: chest pain EXAMINATION/TECHNIQUE: X-RAY - XR Chest 1 View COMPARISON: Prior study dated: 11/12/2017 FINDINGS: LINES/DEVICES: None. LUNGS: No consolidation, edema or effusion. No pneumothorax. MEDIASTINUM AND CARDIOVASCULAR STRUCTURES: Status post median sternotomy and CABG new since the previous examination. BONES AND SOFT TISSUES: Unremarkable. RAD/Chest 1 View (Portable) IMPRESSION: No radiographic evidence of acute cardiopulmonary disease. Electronically Signed: Brain Diego MD at 9:12 EDT ,
[2024-08-30] MEDS: Aspirin 81 MG TAB.CHEW 324 MG PO (07:48)
[2024-08-30 08:07] LABS: Anion Gap 6 (5-15); BUN 16 mg/dL (7-18); BUN/Creat Ratio 15.1 RATIO (10-20); Calcium,Total 9.1 mg/dL (8.5-10.1); Chloride 104 mmol/L (98-107); Creatinine, Serum 1.06 mg/dL (0.55-1.02); EST Glomerular Filtration Rate 55 mL/min (>60); Est Glom Filt Rate - Afr Amer 67 mL/min (>60); Estimated Creatinine Clearance 54.09 ml/min; Glucose 163 mg/dL (74-106); Potassium 3.6 mmol/L (3.5-5.1); Sodium Level 137 mmol/L (136-145); Troponin-I HS (w/2H Reflex) < 3 pg/mL (3.0-54.0)
[2024-08-30 08:10] LABS: Hemoglobin 13.1 g/dL (12.0-15.0); Mean Corp Hgb Conc 32.8 g/dL (32-36); Mean Corpuscular Hgb 28.5 pg (27.0-32.0); Mean Corpuscular Volume 87.1 fL (81-99); Platelet Count 233 K/mm3 (150-450); RBC Distribution Width CV 13.4 % (11.6-14.6); RBC Distribution Width SD 42.4 fl (35.1-43.9); Red Blood Count 4.59 M/mm3 (4.2-5.4); White Blood Count 8.5 K/mm3 (4.4-11.0)
[2024-08-30 08:11] LABS: Absolute Lymphocyte Count 1.11 X10^3/uL (0.83-4.51); Absolute Neutrophil Count 6.2 X10^3/uL (2.0-7.7); Basophil# 0.04 X10^3/uL; Basophil% 0.5 % (0-1); Eosinophil# 0.09 X10^3/uL; Eosinophils% 1.1 % (0-5); Lymphocyte # 1.11 X10^3/ul (0.83-4.51); Mean Platelet Vol. 9.9 fl (6.2-12.0); Monocyte# 1.04 X10^3/uL; Monocyte% 12.2 % (0-10); Neutrophil % 72.8 % (47-70)
[2024-08-30] MEDS: Ondansetron 4 MG/2 ML Vial IV (09:26)
[2024-08-30 09:42] LABS: Reflex Troponin-HS? (from REC) Y
[2024-08-30 10:38] LABS: Troponin-I HS 3 pg/mL (3.0-54.0)
== END 2024-08-30 10:55 | disposition home or self-care (01) ==
PROVIDERS: Emergency Provider Emergency Medicine; PCP Family Medicine; Visit Provider Emergency Medicine
DX: R00.2 Palpitations (principal); J06.9 Acute upper respiratory infection, unspecified; I25.10 Atherosclerotic heart disease of native coronary artery without angina pectoris; R51.9 Headache, unspecified; Z95.2 Presence of prosthetic heart valve; Z95.1 Presence of aortocoronary bypass graft; Z79.82 Long term (current) use of aspirin
CPT/HCPCS: 71045; 80048; 84484; 85025; 87631; 93005; 96374; 99283; A4216; J2405

== ENCOUNTER → 2025-05-10 | Outpatient (CLI) | payer MEDICARE, SELFPAY ==
[2023-04-15 08:21] VITALS: BMI 23.8
[2025-05-10 18:45] LABS: Anion Gap 11 (5-15); BUN 21 mg/dL (4-19); BUN/Creat Ratio 25.9 RATIO (10-20); Calcium,Total 9.1 mg/dL (7.6-11.0); Carbon Dioxide 28.2 mmol/L (21.0-32.0); Chloride 101 mmol/L (98-108); Glucose 134 mg/dL (70-99); Potassium 3.6 mmol/L (3.3-5.1)
== END | disposition home or self-care (01) ==
PROVIDERS: Family Medicine; PCP Family Medicine; Referring Provider Family Medicine; Visit Provider Family Medicine
DX: I38 Endocarditis, valve unspecified (principal)
CPT/HCPCS: 36415; 80048

== ENCOUNTER → 2025-08-17 | Outpatient (CLI) | payer MEDICARE, SELFPAY ==
[2023-04-15 08:21] VITALS: BMI 23.8
--- NOTE | 2025-08-17 08:51 | AAAS_ITS ---
Reason For Study Reason For Study: Screening Aorta Measurements Aorta Doppler Measurements Proximal aorta measures1.82 x 1.79cm. in cross-sectional Peak systolic flow velocities within the proximal aorta axis. measure 115.8 cm/sec. Proximal aorta measures1.79cm. in longitudinal axis. Peak systolic flow velocities within the mid aorta measure Mid aorta measures1.54 x 1.54cm. in cross-sectional axis. 104.9 cm/sec. Mid aorta measures1.54cm. in longitudinal axis. Peak systolic flow velocities within the distal aorta Distal aorta measures1.19 x 1.17cm. in cross-sectional axis.measure 101.3 cm/sec. Distal aorta measures1.20cm. in longitudinal axis. Left Iliac Artery Left iliac artery measures 0.73 x 0.77 cm. in the cross-sectional axis. Left iliac artery measures 0.79 cm. in the longitudinal axis. Peak systolic velocity in the left iliac artery measures 119.4 cm/sec. Right Iliac Artery Right iliac artery measures 0.63 x 0.63 cm. in the cross-sectional axis. Right iliac artery measures 0.58 cm. in the longitudinal axis. Peak systolic velocity in the right iliac artery measures 115.8 cm/sec. Procedure Aorta IVC Iliac vasculature or bypass grafts 29156. Technically difficult to visualize right iliac artery due to bowel gas. Exam performed in department. VL/AAA Screening Interpretation Summary Aorta patent, normal caliber. Bilateral iliac arteries patent, normal caliber. Ordering Physician: Josias Stapleton Referring Physician: Josias Stapleton Performed By: Rubina Banuelos RVT and Student
== END | disposition home or self-care (01) ==
LOC: CVS 08:50
PROVIDERS: PCP Family Medicine; Referring Provider Family Medicine; Visit Provider Family Medicine
DX: Z13.6 Encounter for screening for cardiovascular disorders (principal)
CPT/HCPCS: 76706

== ENCOUNTER → 2025-08-24 | Outpatient (CLI) | payer MEDICARE, SELFPAY ==
[2023-04-15 08:21] VITALS: BMI 23.8
--- NOTE | 2025-08-24 14:54 | BI_ITS ---
EXAM: SCRN MAMM (CAD)W/PINKY BILAT DATE: 08/24/2025 CLINICAL HISTORY: F, Age 65 y/o , SCREENING TECHNIQUE: Procedure Code: [id number] Modality: MG Procedure: SCRN MAMM (CAD)W/PINKY BILAT COMPARISON: Prior exam(s) dated 07/19/2024, 07/16/2023. FINDINGS: TISSUE DENSITY: The breasts are heterogeneously dense, which may obscure small masses. The mammogram demonstrates that the patient has dense breasts. Supplemental screening with whole breast ultrasound or MRI may be considered for further evaluation. Bilateral Breast Mammographic Findings: No significant masses, calcifications or other abnormalities are identified. BI/SCRN MAMM (CAD)W/PINKY BILAT IMPRESSION: There is no mammographic evidence of malignancy. OVERALL FINAL ASSESSMENT BI-RADS 1: NEGATIVE. RECOMMENDATION: Routine annual follow-up in 1 Year Additional Recommendation none A letter with findings and recommendations will be mailed to the patient. Reading Location: [id number]
--- NOTE | 2025-08-24 14:54 | BD_ITS ---
PROCEDURE: DEXA BONE DENSITY STUDY 08/24/2025 REASON FOR EXAM: F, age 65 y/o . Postmenopausal. TECHNIQUE: Procedure Code: BDDBD Modality: DX Procedure: DEXA BONE DENSITY STUDY COMPARISON: None FINDINGS: BMD and T-SCORES Lumbar spine: 1.011 g/cm2, T-score -0.1 Levels: L1 through L4 Left femoral neck: 0.743 g/cm2, T-score -1.0 Femoral neck comparison data not recommended for monitoring change. Left total hip: 0.794 g/cm2, T-score -1.2 Right femoral neck: 0.846 g/cm2, T-score 0.0 Femoral neck comparison data not recommended for monitoring change. Right total hip: 0.899 g/cm2, T-score -0.4 The World Health Organization has defined the following categories based on bone density: Normal bone density: T-score equal to or greater than -1.0 Osteopenia: T-score between -1.0 and -2.5 Osteoporosis: T-score equal to or less than -2.5 FRAX (or Comparable) Fracture Risk Assessment: 10 Year Probability of Fracture: Major Osteoporotic Fracture: 14% Hip Fracture: 0.7% (Note: FRAX is not to be reported in setting of normal range bone density, osteoporosis on DEXA, known history of osteoporosis, prior osteoporotic hip or vertebral fracture, or for any patient undergoing pharmacological treatment for bone loss.) The National Osteoporosis Foundation (NOF) recommends pharmacological treatment for patients with a FRAX 10-year risk of 3% or higher for a hip fracture, or 20% or higher for a major osteoporotic fracture, to prevent osteoporosis and reduce fracture risk. The patient does meet the pharmacological treatment recommendations for prevention of osteoporosis. BD/Dexa Bone Density Study IMPRESSION: OSTEOPENIA. Recommend follow-up as clinically warranted. Reading Location: [place] [id number]
== END | disposition home or self-care (01) ==
LOC: OPBD 14:53
PROVIDERS: PCP Family Medicine; Referring Provider Family Medicine; Visit Provider Family Medicine
DX: Z12.31 Encounter for screening mammogram for malignant neoplasm of breast (principal); Z78.0 Asymptomatic menopausal state; Z13.820 Encounter for screening for osteoporosis
CPT/HCPCS: 77063; 77067; 77080

== ENCOUNTER → 2025-09-09 | Outpatient (CLI) | payer MEDICARE, SELFPAY ==
[2023-04-15 08:21] VITALS: BMI 23.8
[2025-09-09 11:11] LABS: Hematocrit 40.0 % (37-47); Hemoglobin 13.0 g/dL (12.0-15.0); Immature Reticulocyte Fraction 10.20 % (3.00-15.90); Mean Corp Hgb Conc 32.5 g/dL (32-36); Mean Corpuscular Volume 86.8 fL (81-99); Mean Platelet Vol. 9.4 fl (6.2-12.0); Platelet Count 259 K/mm3 (150-450); RBC Distribution Width CV 13.5 % (11.6-14.6); RBC Distribution Width SD 42.5 fl (35.1-43.9); Red Blood Count 4.61 M/mm3 (4.2-5.4); Reticulocyte Count 1.58 % (0.5-1.5); White Blood Count 7.1 K/mm3 (4.4-11.0)
[2025-09-09 11:46] LABS: AST(SGOT) 17 U/L (<=31); Alanine Aminotransfer ALT/SGPT 24 U/L (<=34); Albumin, Serum 4.2 g/dL (3.4-4.8); Alkaline Phosphatase 84 U/L (35-104); Anion Gap 9 (5-15); BUN 21 mg/dL (4-19); BUN/Creat Ratio 24.6 RATIO (10-20); Calcium,Total 9.2 mg/dL (7.6-11.0); Carbon Dioxide 28.6 mmol/L (21.0-32.0); Chloride 103 mmol/L (98-108); Cholesterol 133 mg/dL (<=200); Ferritin 23 ng/mL (22-378); Globulin 3.3 g/dL (2.2-4.2); Glucose 166 mg/dL (70-99); Low Density Lipoprotein Calc. 65 mg/dL; Potassium 4.0 mmol/L (3.3-5.1); Triglycerides 143 mg/dL; Very Low Density Lipoprotein 29 mg/dL (5-40); cholesterol:hdl ratio screen 3.06
[2025-09-09 12:06] LABS: Iron 95 ug/dL (50-170)
== END | disposition home or self-care (01) ==
LOC: LAB 10:14
PROVIDERS: PCP Family Medicine; Referring Provider Family Medicine; Visit Provider Family Medicine
DX: I25.10 Atherosclerotic heart disease of native coronary artery without angina pectoris (principal); E78.5 Hyperlipidemia, unspecified; D50.9 Iron deficiency anemia, unspecified
CPT/HCPCS: 36415; 80053; 80061; 82728; 83540; 85027; 85045